=== PATIENT | male | born 1945 | race Caucasian/White ===

== ENCOUNTER 2025-01-28 10:41 | Outpatient (CLI) | payer OTHER, SELFPAY ==
--- OUTSIDE RECORDS SUMMARY | 2025-01-28 10:44 | XMS_ITS | Encounter Summary ---
Author Name [facility] [facility] [place] [facility] [facility] [place] Address [address] [place] [address] Care Team Providers Care Automatic Gluing Machine Operator Name Role Phone NICHOLAS LEVIN Primary Care Provider Unavailabl e Insurance Providers: All historical and current Section Date Range: From patient's date of to the date document was created. This section includes the names of all active insurance providers for the patient. Insurance Provider Type of Coverage Plan Name Start of Policy Coverage End of Policy Coverage Group Number Member ID Insurance Provider's Telephone Number Policy Rosenberg's Name Patient's Relationship to Policy Rosenberg [employer] POINT OF SERVICE STEVENS EXPRE SS LINES Oct 09, 2020 [id number] CARLO MARTINEZ PATIENT CIGNA [facility] POINT OF SERVICE [id number] Oct 09, 2011 [id number] CARLO MARTINEZ PATIENT CIGNA [facility] POINT OF SERVICE STEVENS EXPRE SS LINES Oct 09, 2020 [id number] CARLO MARTINEZ PATIENT CIGNA PHARMACY PRESCRIPT ION NONE Oct 09, 2011 [id number] TERRY MARTINEZ JR PATIENT CIGNA PHARMACY PRESCRIPT ION ([id number] 07/10 [id number]) Oct 09, 2011 NONE [id number] TERRY MARTINEZ JR PATIENT [employer] ([id number]) PRESCRIPT ION STEVENS EXPRE SS Oct 09, 2020 [id number] [phone] CARLO MARTINEZ PATIENT [employer] POINT OF SERVICE STEVENS EXPRE SS LINES Oct 09, 2011 [id number] CARLO MARTINEZ PATIENT MEDICARE (WNR) MEDICARE (M) PART A Jan 08, 2012 PART A [id number] [phone] [id number] TERRY MARTINEZ JR PATIENT [facility] Oct 09, 2011 [id number] CARLO MARTINEZ PATIENT Selected Encounter This section includes the information on record at [place] for the Encounter. Date/Time Encounter Type Encounter Description Reason Pro vider Source Jan 13, 2025 01:11 PM Outpatient Encounter COMMUNITY CARE CONSULT IHE Encounter Template Text not used by [place] Plan of Treatment: Future Appointments (+ 6 months) and Future Tests (+/- 45 days) The Plan of Treatment section includes future care activities for the patient from all [place] treatmentfacilities. This section includes future appointments and future orders which are active, pending or scheduled. Future Appointments This section includes appointments that were scheduled to occur 6 months from the date of the Encounter, up to a maximum of 20 appointments. The data comes from all [facility]. Appointment Date/Time Appointment Type Appointme nt Facility Name Jan 23, 2025 01:15 PM AM[facility]ORY - NONE [place] [facility] Jan 28, 2025 11:00 AM AM[facility] - NONE [place] [facility] Jan 28, 2025 02:00 PM AMBULATORY - [place]IC[place] [facility] Mar 28, 2025 10:40 AM AMBULATORY - SURGERY [place] [facility] Apr 02, 2025 09:00 AM [facility] Active, Pending, and Scheduled Orders This section includes a listing of several types of active, pending, and scheduled orders, including clinic medications orders, diagnostic test orders, procedure orders and consult orders; where the start date of the order is 45 days before the date of the Encounter or 45 days after the date of theEncounter. The data comes from all [place] treatment [facility]. Test Date/Time Test Type Test Details Facility Name Jan 09, 2025 12:00 AM Imaging - General Radiology Order ESOPHAGUS RAPID (MODIFIED BS) [facility] Jan 09, 2025 10:38 AM Consult Order SURGERY QUINN ND OUTPATIENT Cons Casting And Pasting Supervisor's Choice [facility] Jan 09, 2025 10:38 AM Consult Order OT OUTPATI ENT CDD Cons [employer] Pasting Supervisor's Choice [facility] Jan 09, 2025 10:38 AM Consult Order COMMUNITY [id number] BARIUM SWALLOW Cons Casting And Pasting Supervisor's Choice [facility] Lab Results: +/- 30 days of the encounter This section includes the Chemistry and Hematology Lab Results on record with [place] for the patient. Radiology Reports and Pathology Reports are provided separately, in subsequent sections. Lab Results This section contains the Chemistry/Hematology Results that were resulted 30 days before or 30 daysafter the date of the Encounter. Date/Time Source Result Type Result - Unit Interpretation Reference Range Specimen Type Comment Jan 09, 2025 10:15 AM [facility] N ANTI-CCP (SRL) SERUM Specimen Type: SERUM No comment entered. Ordering Provider: NICHOLAS LEVIN Report Released Date/Time: Jan 09, 2025 10:07 AM Reporting Lab: [address] [address] Performing Lab: [address] [address] ANTI-CCP (SRL) <0.5 0.5-2.9 Jan 09, 2025 10:15 AM [facility] ANTI-NUCLEAR Ab SERUM Specime n Type: SERUM No comment entered. Ordering Provider: NICHOLAS LEVIN Report Released Date/Time: Jan 09, 2025 10:07 AM Reporting Lab: [address] [address] Performing Lab: [address] [address] ANTI-NUCLEAR Ab <1:80 <1:80 Jan 09, 2025 10:15 AM [facility] RHEUMATOID FACTOR SERUM Speci men Type: SERUM No comment entered. Ordering Provider: NICHOLAS LEVIN Report Released Date/Time: Jan 09, 2025 10:07 AM Reporting Lab: [address] [address] Performing Lab: [address] [address] RHEUMATOID FACTOR <8 NEGATIVE [IU]/mL <8 NEGATIVE Jan 09, 2025 10:15 AM [facility] LIPID PROFILE PLASMA Specimen Type: PLASM A Comment: Estimated Glomerular Filtration Rate (eGFR) calculated using the 2020 Chronic Kidney Disease-Epidemiology (CKD-EPI) Collaboration creatinine equation; units of measure are mL/min/1.73 m2. Results are only valid for adults (>=18 years) whose serum creatinine is in a steady state. eGFR calculations are not valid for patients with acute kidney injury and for patients on dialysis. Creatinine-based estimates of kidney function may also be inaccurate in patients with reduced creatinine generation due to decreased muscle mass (e.g., malnutrition, severe hypoalbuminemia, sarcopenia, chronic neuromuscular disease, amputations, severe heart failure or liver disease) and in patients with increased creatinine generation due to increased muscle mass (e.g., muscle builders, anabolic steroids) or increased dietary intake. As drug clearance is proportional to total GFR and not GFR indexed to body surface area (BSA), in individuals with a BSA substantially different than 1.73 m2, drug dosing should be based on the reported eGFR value de-indexed from BSA by multiplying by the individual's BSA and dividing by 1.73. CKD is diagnosed based on abnormalities of kidney structure or function, present for >3 months, with implications for health and disease. CKD is classified and staged based on cause, eGFR and albuminuria (quantified as urine albumin to creatinine ratio). An eGFR >60 mL/min/1.73 m2 in the absence of increased urine albumin excretion or structural abnormalities does not represent CKD. eGFR CKD Interpretation (mL/min/1.73 m2) stage >=90 G1 Normal 60-89 G2 Mild decrease 45-59 G3A Mild to moderate decrease 30-44 G3B Moderate to severe decrease 15-29 G4 Severe decrease <15 G5 Kidney failure Ordering Provider: NICHOLAS LEVIN Report Released Date/Time: Jan 09, 2025 10:07 AM Reporting Lab: [place] [address] [address] Performing Lab: [address] [address] CHOLESTEROL 115 mg/dL 0-199 TRIGLYCERIDE 261 mg/dL H 0-149 HDL CHOLESTEROL 26 mg/dL L 40-69 DIRECT LDL CHOL. 44 mg/dL 0-100 Jan 09, 2025 10:15 AM [facility] GLYCOHEMOGLOBIN BLOOD Specimen Type: BLOOD Comment: [place] guidelines for A1c interpretation: Glycemic control targets are based on Shared Decision Making between clinicians and patients. Criteria used to establish an A1c target recommendation can be found at https://www.ri.gov/qualityandpatientsafety/ and include the use of result accuracy and precision(CV) of the A1c tests clinicians utilize at their own sites of practice. Values obtained from A1C measurements can vary. For typical A1C assays, a reported value of 7.0 could actually be between 6.72 and 7.28 if measured by a reference method. A reported value of 9.0 could actually be between 8.73 and 9.27. Ref: https://ngsp.org/CAPdata.asp. The in-house [employer] D-100 analyzer has a historical CV <= 2%. Contact the laboratory for further performance characteristics of this assay. Ordering Provider: NICHOLAS LEVIN Report Released Date/Time: Jan 09, 2025 10:07 AM Reporting Lab: [address] [address] Performing Lab: [address] [address] GLYCOHEMOGLOBIN 5.3 4.4-5.6 Jan 09, 2025 10:15 AM [facility] TSH PLASMA Specimen Type: PLASM A Comment: Estimated Glomerular Filtration Rate (eGFR) calculated using the 2020 Chronic Kidney Disease-Epidemiology (CKD-EPI) Collaboration creatinine equation; units of measure are mL/min/1.73 m2. Results are only valid for adults (>=18 years) whose serum creatinine is in a steady state. eGFR calculations are not valid for patients with acute kidney injury and for patients on dialysis. Creatinine-based estimates of kidney function may also be inaccurate in patients with reduced creatinine generation due to decreased muscle mass (e.g., malnutrition, severe hypoalbuminemia, sarcopenia, chronic neuromuscular disease, amputations, severe heart failure or liver disease) and in patients with increased creatinine generation due to increased muscle mass (e.g., muscle builders, anabolic steroids) or increased dietary intake. As drug clearance is proportional to total GFR and not GFR indexed to body surface area (BSA), in individuals with a BSA substantially different than 1.73 m2, drug dosing should be based on the reported eGFR value de-indexed from BSA by multiplying by the individual's BSA and dividing by 1.73. CKD is diagnosed based on abnormalities of kidney structure or function, present for >3 months, with implications for health and disease. CKD is classified and staged based on cause, eGFR and albuminuria (quantified as urine albumin to creatinine ratio). An eGFR >60 mL/min/1.73 m2 in the absence of increased urine albumin excretion or structural abnormalities does not represent CKD. eGFR CKD Interpretation (mL/min/1.73 m2) stage >=90 G1 Normal 60-89 G2 Mild decrease 45-59 G3A Mild to moderate decrease 30-44 G3B Moderate to severe decrease 15-29 G4 Severe decrease <15 G5 Kidney failure Ordering Provider: NICHOLAS LEVIN Report Released Date/Time: Jan 09, 2025 10:07 AM Reporting Lab: [address] [address] Performing Lab: [address] [address] TSH 1.6243 m[IU]/mL 0.3500-4.9400 Jan 09, 2025 10:[facility] (for acute inflammation) PLASMA Specimen T ype: PLASMA Comment: Estimated Glomerular Filtration Rate (eGFR) calculated using the 2020 Chronic Kidney Disease-Epidemiology (CKD-EPI) Collaboration creatinine equation; units of measure are mL/min/1.73 m2. Results are only valid for adults (>=18 years) whose serum creatinine is in a steady state. eGFR calculations are not valid for patients with acute kidney injury and for patients on dialysis. Creatinine-based estimates of kidney function may also be inaccurate in patients with reduced creatinine generation due to decreased muscle mass (e.g., malnutrition, severe hypoalbuminemia, sarcopenia, chronic neuromuscular disease, amputations, severe heart failure or liver disease) and in patients with increased creatinine generation due to increased muscle mass (e.g., muscle builders, anabolic steroids) or increased dietary intake. As drug clearance is proportional to total GFR and not GFR indexed to body surface area (BSA), in individuals with a BSA substantially different than 1.73 m2, drug dosing should be based on the reported eGFR value de-indexed from BSA by multiplying by the individual's BSA and dividing by 1.73. CKD is diagnosed based on abnormalities of kidney structure or function, present for >3 months, with implications for health and disease. CKD is classified and staged based on cause, eGFR and albuminuria (quantified as urine albumin to creatinine ratio). An eGFR >60 mL/min/1.73 m2 in the absence of increased urine albumin excretion or structural abnormalities does not represent CKD. eGFR CKD Interpretation (mL/min/1.73 m2) stage >=90 G1 Normal 60-89 G2 Mild decrease 45-59 G3A Mild to moderate decrease 30-44 G3B Moderate to severe decrease 15-29 G4 Severe decrease <15 G5 Kidney failure Ordering Provider: NICHOLAS LEVIN Report Released Date/Time: Jan 09, 2025 10:07 AM Reporting Lab: [place] [phone] Performing Lab: [place] [phone] CRP (for acute inflammation) 1.0 mg/L 0. 0-5.0 Jan 09, 2025 10:15 AM [facility] SED RATE (ISED) BLOOD Specime n Type: BLOOD No comment entered. Ordering Provider: NICHOLAS LEVIN Report Released Date/Time: Jan 09, 2025 10:07 AM Reporting Lab: [address] [address] Performing Lab: [place] [phone] SED RATE (ISED) 3 mm/h 0-20 Jan 09, 2025 10:15 AM [facility] CBC/PLT BLOOD Specimen Type: BLOOD No comment entered. Ordering Provider: NICHOLAS LEVIN Report Released Date/Time: Jan 09, 2025 10:07 AM Reporting Lab: [address] [address] Performing Lab: [address] [address] WBC 7.0 10*3/uL 5.0-10.0 RBC 4.50 10*6/uL L 4.6-6.2 HGB 14.0 g/dL 14.0-18.0 HCT 41.3 L 42.0-52.0 MCV 91.8 fL 80.0-94.0 MCH 31.1 pg H 27.0-31.0 MCHC 33.9 g/dL 32.0-36.0 PLT 240 10*3/uL 150-450 MPV 9.1 fL 9.0-13.1 RDW 12.3 11.0-16.0 NRBC 0.0 0.0-0.0 Jan 09, 2025 10:15 AM [facility] PANEL 5 PLASMA Specimen Type: PLASM A Comment: Estimated Glomerular Filtration Rate (eGFR) calculated using the 2020 Chronic Kidney Disease-Epidemiology (CKD-EPI) Collaboration creatinine equation; units of measure are mL/min/1.73 m2. Results are only valid for adults (>=18 years) whose serum creatinine is in a steady state. eGFR calculations are not valid for patients with acute kidney injury and for patients on dialysis. Creatinine-based estimates of kidney function may also be inaccurate in patients with reduced creatinine generation due to decreased muscle mass (e.g., malnutrition, severe hypoalbuminemia, sarcopenia, chronic neuromuscular disease, amputations, severe heart failure or liver disease) and in patients with increased creatinine generation due to increased muscle mass (e.g., muscle builders, anabolic steroids) or increased dietary intake. As drug clearance is proportional to total GFR and not GFR indexed to body surface area (BSA), in individuals with a BSA substantially different than 1.73 m2, drug dosing should be based on the reported eGFR value de-indexed from BSA by multiplying by the individual's BSA and dividing by 1.73. CKD is diagnosed based on abnormalities of kidney structure or function, present for >3 months, with implications for health and disease. CKD is classified and staged based on cause, eGFR and albuminuria (quantified as urine albumin to creatinine ratio). An eGFR >60 mL/min/1.73 m2 in the absence of increased urine albumin excretion or structural abnormalities does not represent CKD. eGFR CKD Interpretation (mL/min/1.73 m2) stage >=90 G1 Normal 60-89 G2 Mild decrease 45-59 G3A Mild to moderate decrease 30-44 G3B Moderate to severe decrease 15-29 G4 Severe decrease <15 G5 Kidney failure Ordering Provider: NICHOLAS LEVIN Report Released Date/Time: Jan 09, 2025 10:07 AM Reporting Lab: [address] [address] Performing Lab: [address] [address] CREATININE 0.94 mg/dL 0.72-1.25 UREA NITROGEN 20 mg/dL 9-25 GLUCOSE 79 mg/dL 74-100 SODIUM 139 mmol/L 136-145 POTASSIUM 4.4 mmol/L 3.5-5.1 CHLORIDE 107 mmol/L 98-107 CO2 25 mmol/L 22-29 CALCIUM 9.2 mg/dL 8.4-10.2 TOTAL PROTEIN 7.5 g/dL 6.4-8.3 ALBUMIN 4.2 g/dL 3.5-5.2 TOTAL BILIRUBIN 0.7 mg/dL 0.2-1.2 AST 21 U/L 5-34 ALT 21 U/L 0-55 ANION GAP 7 meq/L 3-19 ALK PHOS 79 U/L 40-150 eGFR (CKD-EPI) 83 Social History: Smoking Status (Most current) and Tobacco Use (All prior to encounter date) This section includes the most current, and the historical, smoking and tobacco- related health factors from the [place] facility where the Encounter took place. Current Smoking Status This section includes the most current smoking, or tobacco-related health factor, from the [place] facility where the Encounter took place. Date/Time Current Smoking Status Comment Colby corado Jan 09, 2025 10:00 AM VA-TOBACCO USE FOR NAVI CIGARETTES [facility] Tobacco Use History This section includes a history of the smoking, or tobacco-related health factors, that were collected on or before the date of the Encounter. The data comes from the [place] facility where the Encounter took place. Date/Time Smoking Status/Tobacco Use Comment Mouna roman Jan 09, 2025 10:00 AM VA-TOBACCO USE FOR NAVI CIGARETTES [facility] February 07, 2024 02:30 PM VA-TOBACCO NEVER USED [facility] Jun 16, 2022 01:00 PM VA-TOBACCO FORMER USER [facility] Jun 16, 2022 01:00 PM VA-TOBACCO QUIT 15 YRS OR MORE [facility] Jun 09, 2021 09:30 AM VA-TOBACCO FORMER USER [facility] Jun 09, 2021 09:30 AM VA-TOBACCO QUIT 15 YRS OR MORE [facility] Jul 06, 2020 08:30 AM VA-TOBACCO FORMER USER [facility] Jul 06, 2020 08:30 AM VA-TOBACCO QUIT 15 YRS OR MORE [facility] Jun 11, 2019 01:24 PM VA-TOBACCO NEVER USED [facility] Aug 01, 2018 07:43 AM VA-TOBACCO FORMER USER [facility] Aug 01, 2018 07:43 AM VA-TOBACCO QUIT 15 YRS OR MORE [facility] Jun 27, 2017 08:56 AM V9 LIFETIME NON-USER OF TOBACCO [facility] Aug 08, 2016 10:07 AM V9 LIFETIME NON-USER OF TOBACCO [facility] Sep 07, 2015 08:51 AM V9 QUIT TOBACCO >7 YEARS AGO [facility] May 31, 2013 09:51 AM V9 QUIT TOBACCO >7 YEARS AGO [facility] May 31, 2013 09:51 AM V9 TOBACCO OFFERED [facility] Radiology Reports: +/- 30 days of the encounter Radiology Reports For cases when an order for radiology services may have been completed prior to the date of the Encounter, the report list includes the Radiology Reports that were completed up to 30 days before dateof the Encounter. For cases when an order for radiology services may have been completed after the date of the Encounter, the report list also includes the Radiology Reports that were completed up to30 days after date of the Encounter. The data comes from all [place] treatment facilities. Date/Time Radiology Report Provider Source Jan 09, 2025 10:27 AM HAND-RIGHT 3 OR MORE VIEWS: TERRY MARTINEZ JR [id number] -1945 M Exm Date: JAN 09, 2025@10:27 Req Phys: NICHOLAS LEVIN Loc: [facility] 1-2 (Req'g Loc) Img Loc: [facility] Service: [place] [address] (Case [id number] COMPLETE)HAND-RIGHT 3 OR MORE VIEWS (RAD Detailed) CPT:66024 Reason for Study: BILATERAL HAND PAIN Clinical History: UPDATING PLAIN FILMS FOR HAND CONSULT Report Status: Verified Date Reported: JAN 10, 2025 Date Verified: JAN 10, 2025 Hourly Shift E-Sig: Report: HAND-RIGHT 3 OR MORE VIEWS, HAND-LEFT 3 OR MORE VIEWS, 01/09/2025 10:39 AM EDT INDICATION: BILATERAL HAND PAIN COMPARISON: February 07, 2024 Impression: No acute fracture or malalignment. 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 Primary Diagnostic Code: NO ALERT REQUIRED Primary Interpreting Staff: MARC BRAND, Staff Physician Verified by calculating machine mechanic for MARC BRAND /MARC GENAO [facility] Jan 09, 2025 10:27 AM CHEST TWO(2) VIEW PA&LAT: TERRY MARTINEZ JR [id number] -1945 M Exm Date: JAN 09, 2025@10:27 Req Phys: NICHOLAS LEVIN Pat Loc: [facility] 1-2 (Req'g Loc) Img Loc: [facility] Service: Unknown [place] [id number] (Case [id number] COMPLETE)CHEST TWO(2) VIEW PA&LAT (RAD Detailed) CPT:96394 Reason for Study: CHRONIC COUGH Clinical History: Report Status: Verified Date Reported: JAN 09, 2025 Date Verified: JAN 09, 2025 Hourly Shift E-Sig: Report: Comparison: February 02, 2022 Findings: Two views of the chest were obtained. Lungs are free of infiltrates. Heart size is normal. No pneumothorax or pleural effusions are seen. 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 Impression: 1. No acute disease Primary Diagnostic Code: NO ALERT REQUIRED Primary Interpreting Staff: SINTIA IBARRA, Staff Physician Verified by calculating machine mechanic for SINTIA IBARRA /SINTIA RUIZ [facility] Jan 09, 2025 10:27 AM HAND-LEFT 3 OR MORE VIEWS: MARTINEZTERRYSTEVENSON JR [id number] -1945 M Exm Date: JAN 09, 2025@10:27 Req Phys: NICHOLAS LEVIN Loc: [facility]OL[facility] 1-2 (Req'g Loc) g Loc: [facility] Service: [place] [address] (Case [id number] COMPLETE)HAND-LEFT 3 OR MORE VIEWS (RAD Detailed) CPT:79715 Reason for Study: BILATERAL HAND PAIN Clinical History: UPDATING PLAIN FILMS FOR HAND CONSULT Report Status: Verified Date Reported: JAN 10, 2025 Date Verified: JAN 10, 2025 Hourly Shift E-Sig: Report: HAND-RIGHT 3 OR MORE VIEWS, HAND-LEFT 3 OR MORE VIEWS, 01/09/2025 10:39 AM EDT INDICATION: BILATERAL HAND PAIN COMPARISON: February 07, 2024 Impression: No acute fracture or malalignment. 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 Primary Diagnostic Code: NO ALERT REQUIRED Primary Interpreting Staff: MARC BRAND, Staff Physician Verified by calculating machine mechanic for MARC BRAND /MARC GENAO [facility] Dec 19, 2024 08:34 AM SHOULDER-LEFT 2 OR MORE VIEWS: TERRY MARTINEZ [id number] -1945 M Exm Date: DEC 19, 2024@08:34 Req Phys: WILBERT WOOD Loc: [facility] ORTHO/SHOULDER/FOLLOWUP CD Img Loc: [facility] Service: Unknown [place] [id number] (Case [id number] COMPLETE)SHOULDER-LEFT 2 OR MORE VIEWS (RAD Detailed) CPT:27933 Reason for Study: s/p surgery Clinical History: Report Status: Verified Date Reported: DEC 20, 2024 Date Verified: DEC 20, 2024 Hourly Shift E-Sig: Report: EXAM: LEFT SHOULDER RADIOGRAPHS HISTORY: Status post surgery COMPARISON: 02/21/2024 FINDINGS: Redemonstration of reverse left glenohumeral arthroplasty, 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 No evidence for acute fracture, dislocation or hardware loosening. No lytic or blastic lesion. Moderate acromioclavicular degenerative changes. Soft tissues are unremarkable. Impression: 1. Stable postoperative changes of the left shoulder. READING PHYSICIAN: Prieto Truong M.D. -[phone] 12/20/2024 23:30 EDT [facility] National Teleradiology Program [phone] (For Medical Practitioner Use Only) Attention Patients / Veterans: If you have questions or concerns about these test results, please contact your ordering provider or primary care team. Primary Diagnostic Code: NO ALERT REQUIRED Primary Interpreting Staff: OUTSIDE SERVICE RADIOLOGY, Staff Physician / RADIOLOGY,OUTSIDE SERVICE [facility] Encounter Notes: All associated encounter notes This section contains the clinical notes associated to the Encounter. Date/Time Encounter Note(s) Provider Source Jan 13, 2025 01:11 PM NONVA NOTE: LOCAL TITLE: COMMUNITY CARE-CARE COORDINATION PLAN NOTE STANDARD TITLE: NONVA NOTE DATE OF NOTE: JAN 13, 2025@13:11 ENTRY DATE: JAN 13, 2025@13:11:50 AUTHOR: SONIA PRETTY COSIGNER: URGENCY: STATUS: COMPLETED [place] [facility] [place] Complaint: Dysphagia, unspecified(ICD-10-CM R13.10) Patient Admitted? No Level of Care Coordination Moderate Care Coordination was determined from: Chart Review Facility Community Care Office Contact Care Coordination Point of Contact: Maria De Jesus Phone Number: [phone] Services: Basic Care Coordination Services Monitoring and coordination of Rehab/PT Services Direct communication to referring provider Care management, if appropriate Plan: Community Care consult clinically reviewed and sent forward to POD MSA for scheduling and assignment of authorization. /vishnu/ Sonia Pretty RN [facility] Powerhouse Mechanic Supervisor Signed: 01/13/2025 13:13 SONIA PRETTY [facility]
--- OUTSIDE RECORDS SUMMARY | 2025-01-28 10:44 | XMS_ITS | Encounter Summary ---
Author Name [facility] [place] [facility] [place] [facility] [place] Address [address] [place] [id number] Care Team Providers Care Department Of Natural Resources Officer Name Role Phone NICHOLAS LEVIN Primary Care [...] STEVENS EXPRE SS LINES Oct 09, 2020 [id number] CARLO MARTINEZ PATIENT [facility] POINT OF SERVICE [id number] Oct 09, 2011 [id number] [phone] CARLO MARTINEZ PATIENT [facility] [facility] POINT OF SERVICE STEVENS EXPRE SS LINES Oct 09, 2020 [id number] CARLO MARTINEZ PATIENT [facility] PRESCRIPT ION NONE Oct 09, 2011 [id number] [phone] TERRY MARTINEZ JR PATIENT [facility] PRESCRIPT ION ([id number] 07/10 [id number] [phone]) Oct 09, 2011 NONE [id number] TERRY MARTINEZ JR PATIENT [facility] ([id number]) PRESCRIPT ION STEVENS EXPRE SS Oct 09, 2020 [id number] CARLO MARTINEZ PATIENT [facility] POINT OF SERVICE STEVENS EXPRE SS LINES Oct 09, 2011 [id number] CARLO MARTINEZ PATIENT MEDICARE (WNR) MEDICARE (M) PART A Jan 08, 2012 PART A [id number] TERRY MARTINEZ JR [facility] Oct 09, 2011 [id number] CARLO MARTINEZ PATIENT Selected Encounter This section includes the information on record at [place] for the Encounter. Date/Time Encounter Type Encounter Description Reason Provider Source Dec 06, 2024 09:30 AM OFFICE O/P EST MOD 30 MIN DERMATOLOGY ICD-10-CM L57.0 Actinic keratosis [place] EN Dorie IHE Encounter Template Text not used by [place] Assessments - Encounter Diagnoses This section includes the primary and secondary diagnoses documented for the Encounter. Date/Time Primary/Secondary Diagnosis Diagnosis Name Provider Source Dec 06, 2024 10:11 AM PRIMARY Actinic keratosis [place] EN B [place] Dec 06, 2024 10:11 AM SECONDARY Hemangioma of skin and subcutaneous tissue [place] [facility] [place] Dec 06, 2024 10:11 AM SECONDARY Nevus, non-neoplastic [place] F[place] EN B [place] Dec 06, 2024 10:11 AM SECONDARY Other seborrheic keratosis [place] [facility] [place] Dec 06, 2024 10:11 AM SECONDARY Tinea corporis [place] EN B [place] Dec 06, 2024 10:11 AM SECONDARY Xerosis cutis [place] [facility] [place] Plan of Treatment: Future Appointments (+ 6 months) and Future Tests (+/- 45 days) The Plan of Treatment section includes future care activities for the patient from all [place] treatmentfacilities. This section includes future appointments and future orders which are active, pending or scheduled. Future Appointments This section includes appointments that were scheduled to occur 6 months from the date of the Encounter, up to a maximum of 20 appointments. The data comes from all [facility]. Appointment Date/Time Appointment Type Appointme nt Facility Name Dec 19, 2024 09:00 AM AMBULATORY - SURGERY [place] Jan 09, 2025 10:00 AM [facility]ORY - [place]ONE [place] [facility] Jan 09, 2025 11:15 AM AM[place]ATORY - NONE [place] Jan 09, 2025 11:30 AM AMBULATORY - REHAB MEDICIN E [facility] Jan 23, 2025 01:15 PM AM[place]ULATORY - NONE [place] Jan 28, 2025 11:00 AM AM[place]ATORY - NONE [place] [facility] Jan 28, 2025 02:00 PM AMBULATORY - REHAB MEDICIN E [facility] Mar 28, 2025 10:40 AM AMBULATORY - SURGERY [place] [facility] Apr 02, 2025 09:00 AM AM[facility]ULATORY - [place]GERY [place] Active, Pending, and Scheduled Orders This section includes a listing of several types of active, pending, and scheduled orders, including clinic medications orders, diagnostic test orders, procedure orders and consult orders; where the start date of the order is 45 days before the date of the Encounter or 45 days after the date of theEncounter. The data comes from all [facility]. Test Date/Time Test Type Test Details Facility Name Jan 09, 2025 12:00 AM Imaging - General Radiology Order ESOPHAGUS RAPID (MODIFIED BS) [facility] Jan 09, 2025 10:38 AM Consult Order SURGERY QUINN ND OUTPATIENT Cons Director Of Analytics's Choice [facility] Jan 09, 2025 10:38 AM Consult Order OT OUTPATI ENT CDD Cons Director Of Analytics's Choice [facility] Jan 09, 2025 10:38 AM Consult Order COMMUNITY [id number] BARIUM SWALLOW Cons Director Of Analytics's Choice [facility] Radiology Reports: +/- 30 days of the [...] the Encounter. The data comes from all [place] treatment facilities. Date/Time Radiology Report Provider Source Dec 19, 2024 08:34 AM SHOULDER-LEFT 2 OR MORE VIEWS: TERRY MARTINEZ JR [id number] -1945 M Exm Date: DEC 19, 2024@08:34 Req Phys: WILBERT WOOD Pat Loc: [facility]THO/SHOULDER/FOLLOWUP CD Img Loc: CDD RADIOLOGY Service: [place] [address] (Case [id number] COMPLETE)SHOULDER-LEFT 2 OR MORE VIEWS (RAD Detailed) CPT:62267 Reason for Study: s/p surgery Clinical History: Report Status: Verified Date Reported: DEC 20, 2024 Date Verified: DEC 20, 2024 Tank Storage Supervisor E-Sig: Report: EXAM: LEFT SHOULDER RADIOGRAPHS HISTORY: Status post surgery COMPARISON: 02/21/2024 FINDINGS: Redemonstration of reverse left glenohumeral arthroplasty, 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 No evidence for acute fracture, dislocation or hardware loosening. No lytic or blastic lesion. Moderate acromioclavicular degenerative changes. Soft tissues are unremarkable. Impression: 1. Stable postoperative changes of the left shoulder. READING PHYSICIAN: Prieto Truong M.D. -[id number] 12/20/2024 23:30 EDT [facility] National Teleradiology Program [phone] (For Medical Practitioner Use Only) Attention Patients / Veterans: If you have questions or concerns about these test results, please contact your ordering provider or primary care team. Primary Diagnostic Code: NO ALERT REQUIRED Primary Interpreting Staff: OUTSIDE SERVICE RADIOLOGY, Staff Physician / RADIOLOGY,OUTSIDE SERVICE [facility] Encounter Notes: All associated encounter notes This section contains the clinical notes associated to the Encounter. Date/Time Encounter Note(s) Provider Source Dec 06, 2024 10:01 AM DERMATOLOGY PHYSIC ESTEBAN NOTE: LOCAL TITLE: DERMATOLOGY CLINIC PHYSICIAN/PA/GAMBLING BROKER NOTE STANDARD TITLE: DERMATOLOGY PHYSICIAN NOTE DATE OF NOTE: DEC 06, 2024@10:01 ENTRY DATE: DEC 06, 2024@10:01:51 AUTHOR: CLIBURN,ZACK B EXP COSIGNER: URGENCY: STATUS: COMPLETED DERMATOLOGY CLINIC PHYSICIAN/PA/GAMBLING BROKER NOTE Has ADDENDA Patient is a 79 yo WHITE MALE here for: waist up exam. Patient has noticed an irritated lesion on the top of the scalp x months and itchy spot on the left foot x one year. He denies using any topical treatments on foot. Have you used tobacco products (smoked or chewed) in the past 12 months? - No Are you having any pain or recurrent pain in the last several weeks/months? No Location: Duration: Characteristics: Active Outpatient Medications (including Supplies): Active Outpatient Medications Status === 1) ATORVASTATIN CALCIUM 40MG TAB TAKE ONE-HALF TABLET BY MOUTH ACTIVE DAILY FOR CHOLESTEROL -DO NOT DRINK GRAPEFRUIT JUICE WHILE ON THIS DRUG 2) DICLOFENAC NA 1% TOP GEL APPLY 2 GRAM STRIP TO AFFECTED AREA ACTIVE EVERY 6 HOURS NEEDED Indication: FOR HAND PAIN 3) LISINOPRIL 10MG TAB TAKE ONE-HALF TABLET BY MOUTH DAILY FOR ACTIVE BLOOD PRESSURE/HEART 4) LORATADINE 10MG TAB TAKE ONE TABLET BY MOUTH DAILY MAY ACTIVE CAUSE DROWSINESS Indication: FOR ALLERGIES Pending Outpatient Medications Status === 1) KETOCONAZOLE 2% CREAM APPLY SMALL AMOUNT TO AFFECTED AREA PENDING TWICE A DAY Indication: FOR FUNGAL INFECTION 2) THERA-DERM MOISTURIZING LOTION APPLY SMALL AMOUNT TO PENDING AFFECTED AREA NEEDED Indication: FOR DRY SKIN Active Non-VA Medications Status === 1) Non-VA ASPIRIN 81MG EC TAB 81MG MOUTH DAILY ACTIVE 2) Non-VA FISH OIL CAP,ORAL 1200MG MOUTH EVERY DAY ACTIVE 8 Total Medications ALLERGIES: SULFA DRUGS History of SCC/BCC PREVIOUS REPORTS: 07/2020 Skin, right neck, shave biopsy: -Basal cell carcinoma with superficial erosion, see comment. S/P EXCISION Jun 2021 Skin, left nasal sidewall, shave biopsy: -Basal cell carcinoma, transected at base. s/p MOHS 04/2024 Skin, left deltoid, shave biopsy: -Basal cell carcinoma, superficial pattern . s/p Efudex/Dovonex x 15 days FAMILY HISTORY: No skin cancer REVIEW OF SYSTEMS: Feels well, no systemic complaints. , Constitutional: Appears well-developed, well-nourished, in no acute distress. PHYSICAL EXAM - Waist-up Skin Exam: head, neck, chest, back, abdomen, right and left arm, hands - Focal Exam: left foot Common Physical Exam Findings: - Erythematous scaly macules on - Scalp - Few scattered zhang/brown reticulated macules on sun-exposed areas - Stuck-on, greasy flesh colored or brown keratotic papules/macules with or without pseudo-horn cysts on - Trunk - Discrete puckett red papules on - Trunk - Diffuse scaling with linear fissures on the upper and lower extremities - Erythematous plaque(s) with white scales/flakes and active boarders on - dorsum left foot ASSESSMENT & PLAN: AK's: Explained to the patient that these are precancerous lesions and should be treated. Discussed the discomfort caused by LN2. Disscussed risks of cryotherapy such as scabbing, crusting, pain, blistering, pigmentary change, and possibility of scarring. - Wound care was discussed, and wound care sheet given. Patient consented to treatment and had no further questions or concerns. - LN2 x 1 to - Scalp Nevi and lentigines: Monitor moles for change/skin self-examination was reviewed including the use of a hand-held mirror to check the back -Continue sun protection. -Preventive therapy discussed -Avoid sun exposure between 10am and 4pm -Sunscreen: SPF #30 or more; re-apply every 2 hours, daily -Protective clothing/ 4 inch wide-brim hat -No tanning Seborrheic keratoses: - Explained to patient and reassured that these lesions are benign. - Treatment is not necessary. Puckett Hemangioma: Reassurance was provided. Tinea corposis: - Ketoconazole cream Xerosis: - Recommended TheraDerm lotion twice daily, once immediately after the shower or bath. Dry skin care discussed. - Apply moisturizers whenever feels the need to scratch. To pat instead of rubbing, cut nails short and use the pulp of fingers. - reduce temperature of shower and usage of soaps History of skin cancer - Will observe: - h/o BCC/SCC: no evidence of recurrence Return to clinic order placed. 6 mo I spent 33 minutes, reviewing history, performing an exam and evaluation, entering clinical information EHR, interpreting result, counseling patient/family/caregiver, reviewing x-rays/mri/labs, ordering meds/test/procedures, referring and communicating with consulting health furnace caretaker, and care coordination. /vishnu/ ZACK Reese Physician [employer] And Skin Fleshing Machine Operator Signed: 12/06/2024 10:11 12/09/2024 ADDENDUM STATUS: COMPLETED All medications, post treatment care, and treatment plan was discussed with prior to exiting clinic by nurse/provider. Chart check review completed. RTC per order. /vishnu/ JOSE ALLEN RN, BSN, [facility] Director [facility] [employer] [facility] Signed: 12/09/2024 09:47 [facility] Dec 06, 2024 09:43 AM SUICIDE PREVENTION RISK ASSESSMENT SCREENING NOTE: LOCAL TITLE: [place] SUICIDE NOTE STANDARD TITLE: SUICIDE PREVENTION RISK ASSESSMENT SCREENING NOT DATE OF NOTE: DEC 06, 2024@09:43 ENTRY DATE: DEC 06, 2024@09:43:42 AUTHOR: ALMAZ DORAN COSIGNER: URGENCY: STATUS: COMPLETED C-SSRS Screening Gardner-Suicide Severity Rating Scale (C-SSRS Screener) 1. Over the past month, have you wished you were or wished you could go to sleep and not wake up? Yes 2. Over the past month, have you had any actual thoughts of killing yourself? No 3. Over the past month, have you been thinking about how you might do this? Response not required due to responses to other questions. 4. Over the past month, have you had these thoughts and had some intention of acting on them? Response not required due to responses to other questions. 5. Over the past month, have you started to work out or worked out the details of how to kill yourself? Response not required due to responses to other questions. 6. If yes, at any time in the past month did you intend to carry out this plan? Response not required due to responses to other questions. 7. In your lifetime, have you ever done anything, started to do anything, or prepared to do anything to end your life (for example, collected pills, obtained a gun, gave away valuables, went to the roof but didn't jump)? No 8. If YES, was this within the past 3 months? Response not required due to responses to other questions. /vishnu/ Silvana Doran Heater Planer Operator Signed: 12/06/2024 09:44 ALMAZ DORAN-[facility]
--- OUTSIDE RECORDS SUMMARY | 2025-01-28 10:44 | XMS_ITS | Encounter Summary ---
Author Name [facility] [place] [facility] [place] Address [address] [place] [address] Care Team Providers Care Drone Operator Name Role Phone NICHOLAS LEVIN Primary [...] STEVENS EXPRE SS LINES Oct 09, 2020 [id number] [phone] CARLO MARTINEZ PATIENT [employer]NA [facility] POINT OF SERVICE [id number] Oct 09, 2011 [id number] [phone] CARLO MARTINEZ PATIENT CIGNA [facility] POINT OF SERVICE STEVENS EXPRE SS LINES Oct 09, 2020 [id number] [phone] CARLO MARTINEZ PATIENT [employer]IG[employer] [facility] PRESCRIPT ION ([id number] 07/10 [id number] [phone]) Oct 09, 2011 NONE [id number] [phone] TERRY MARTINEZ JR PATIENT [employer]IGNA PHARMACY PRESCRIPT ION NONE Oct 09, 2011 [id number] TERRY MARTINEZ JR PATIENT [employer] ([id number]) PRESCRIPT ION STEVENS EXPRE SS Oct 09, 2020 [id number] CARLO MARTINEZ PATIENT [facility] POINT OF SERVICE STEVENS EXPRE SS LINES Oct 09, 2011 [id number] CARLO MARTINEZ PATIENT MEDICARE (WNR) MEDICARE (M) PART A Jan 08, 2012 PART A [id number] [phone] TERRY MARTINEZ JR PATIENT [facility] Oct 09, 2011 [id number] CARLO MARTINEZ PATIENT Selected Encounter This section includes the information on record at [place] for the Encounter. Date/Time Encounter Type Encounter Description Reason Provider Source Jan 09, 2025 11:30 AM ORTHC/PROSTC MGMT SBSQ ENC PROSTHETICS/ORTHOT ICS ICD-10-CM E11.40 Type 2 diabetes mellitus with diabetic neuropathy, ELI Nielsen [facility] Encounter Template Text not used by [place] Assessments - Encounter Diagnoses This section includes the primary and secondary diagnoses documented for the Encounter. Date/Time Primary/Secondary Diagnosis Diagnosis Name Provider Source Jan 09, 2025 11:18 AM PRIMARY Type 2 diabetes mellitus with diabetic neuropathy, ELI Nielsen [facility] Plan of Treatment: Future Appointments (+ 6 months) and Future Tests (+/- 45 days) The Plan of Treatment section includes future care activities for the patient from all [place] treatmentfacilities. This section includes future appointments and future orders which are active, pending or scheduled. Future Appointments This section includes appointments that were scheduled to occur 6 months from the date of the Encounter, up to a maximum of 20 appointments. The data comes from all [place] treatment facilities. Appointment Date/Time Appointment Type Appointme nt Facility Name Jan 23, 2025 01:15 PM AMBULATORY - NONE [place] [facility] Jan 28, 2025 11:00 AM AM[place]ULATORY - NONE [place] [facility] Jan 28, 2025 02:00 PM [facility] Mar 28, 2025 10:40 AM AMBULATORY - SURGERY [place] [facility] Apr 02, 2025 09:00 AM AMBULATORY - SURGERY [place] Active, Pending, and Scheduled Orders This section includes a listing of several types of active, pending, and scheduled orders, including clinic medications orders, diagnostic test orders, procedure orders and consult orders; where the start date of the order is 45 days before the date of the Encounter or 45 days after the date of theEncounter. The data comes from all [place] treatment facilities. Test Date/Time Test Type Test Details Facility Name Jan 09, 2025 12:00 AM Imaging - General Radiology Order ESOPHAGUS RAPID (MODIFIED BS) [facility] Jan 09, 2025 10:38 AM Consult Order SURGERY QUINN ND OUTPATIENT Cons Customs Officer's Choice [facility] Jan 09, 2025 10:38 AM Consult Order OT OUTPATI ENT CDD Cons Customs Officer's Choice [facility] Jan 09, 2025 10:38 AM Consult Order COMMUNITY [id number] BARIUM SWALLOW Cons Customs Officer's Choice [facility] Lab Results: +/- 30 days of the encounter This section includes the Chemistry and Hematology Lab Results on record with [facility] for the patient. Radiology Reports and Pathology Reports are provided separately, in subsequent sections. Lab Results This section contains the Chemistry/Hematology Results that were resulted 30 days before or 30 daysafter the date of the Encounter. Date/Time Source Result Type Result - Unit Interpretation Reference Range Specimen Type Comment Jan 09, 2025 10:15 AM [facility] N ANTI-CCP (SRL) SERUM Specimen Type: SERUM No comment entered. Ordering Provider: NICHOLAS LEVIN Report Released Date/Time: Jan 09, 2025 10:07 AM Reporting Lab: [address] [address] Performing Lab: [address] [address] ANTI-CCP (SRL) <0.5 0.5-2.9 Jan 09, 2025 10:15 AM [facility] ANTI-NUCLEAR Ab SERUM Specime n Type: SERUM No comment entered. Ordering Provider: NICHOLAS LEVIN Report Released Date/Time: Jan 09, 2025 10:07 AM Reporting Lab: [address] [address] Performing Lab: [address] [address] ANTI-NUCLEAR Ab <1:80 <1:80 Jan 09, 2025 10:15 AM [facility] RHEUMATOID FACTOR SERUM Speci men Type: SERUM No comment entered. Ordering Provider: NICHOLAS LEVIN Report Released Date/Time: Jan 09, 2025 10:07 AM Reporting Lab: [address] [address] Performing Lab: [address] [address] RHEUMATOID FACTOR <8 NEGATIVE [IU]/mL <8 NEGATIVE Jan 09, 2025 10:15 AM [facility] LIPID PROFILE PLASMA Specimen Type: PLASM A [...] 09, 2025 10:07 AM Reporting Lab: [address] [address] Performing Lab: [address] [address] CHOLESTEROL 115 mg/dL 0-199 TRIGLYCERIDE 261 mg/dL H 0-149 HDL CHOLESTEROL 26 mg/dL L 40-69 DIRECT LDL CHOL. 44 mg/dL 0-100 Jan 09, 2025 10:15 AM [facility] GLYCOHEMOGLOBIN BLOOD Specimen Type: BLOOD Comment: [place] guidelines for A1c interpretation: Glycemic control targets are based on Shared Decision Making between clinicians and patients. Criteria used to establish an A1c target recommendation can be found at https://www.me.gov/qualityandpatientsafety/ and include the use of result accuracy [...] 8.73 and 9.27. Ref: https://ngsp.org/CAPdata.asp. The in-house [employer]onge-WANdisco D-100 analyzer has a historical CV <= 2%. Contact the laboratory for further performance characteristics of this assay. Ordering Provider: NICHOLAS LEVIN Report Released Date/Time: Jan 09, 2025 10:07 AM Reporting Lab: [address] [address] Performing Lab: [address] [address] GLYCOHEMOGLOBIN 5.3 4.4-5.6 Jan 09, 2025 10:15 AM [facility] TSH PLASMA Specimen Type: PLASM A Comment: [...] 09, 2025 10:07 AM Reporting Lab: [address] [address] Performing Lab: [address] [address] TSH 1.6243 m[IU]/mL 0.3500-4.9400 Jan 09, 2025 10:15 AM [facility] CRP (for acute inflammation) PLASMA Specimen T [...] 09, 2025 10:07 AM Reporting Lab: [address] [address] Performing Lab: [address] [address] CRP (for acute inflammation) 1.0 mg/L 0. 0-5.0 Jan 09, 2025 10:15 AM [facility] SED RATE (ISED) BLOOD Specime n Type: BLOOD No comment entered. Ordering Provider: NICHOLAS LEVIN Report Released Date/Time: Jan 09, 2025 10:07 AM Reporting Lab: [place] [phone] Performing Lab: [place] [phone] SED RATE (ISED) 3 mm/h 0-20 Jan 09, 2025 10:15 AM [facility] CBC/PLT BLOOD Specimen Type: BLOOD No comment entered. Ordering Provider: NICHOLAS LEVIN Report Released Date/Time: Jan 09, 2025 10:07 AM Reporting Lab: [place] [phone] Performing Lab: [place] [phone] WBC 7.0 10*3/uL 5.0-10.0 RBC 4.50 10*6/uL L 4.6-6.2 HGB 14.0 g/dL 14.0-18.0 HCT 41.3 L 42.0-52.0 MCV 91.8 fL 80.0-94.0 MCH 31.1 pg H 27.0-31.0 MCHC 33.9 g/dL 32.0-36.0 PLT 240 10*3/uL 150-450 MPV 9.1 fL 9.0-13.1 RDW 12.3 11.0-16.0 NRBC 0.0 0.0-0.0 Jan 09, 2025 10:15 AM [facility] PANEL 5 PLASMA Specimen Type: PLASM A [...] 09, 2025 10:07 AM Reporting Lab: [address] [address] Performing Lab: [address] [address] CREATININE 0.94 mg/dL 0.72-1.25 UREA NITROGEN 20 [...] PHOS 79 U/L 40-150 eGFR (CKD-EPI) 83 Vital Signs: All taken on the encounter date This section contains inpatient and outpatient Vital Signs collected on the date of the Encounter. Date/Time Temperature Pulse Blood Pressure Respiratory Rate SP02 Pain Height Weight Body Mass Index Source Jan 09, 2025 09:34 AM 97.7 71 133/73 16 97 0 70 [address] [place] [facility] Social History: Smoking Status (Most current) and Tobacco Use (All prior to encounter date) This section includes the most current, and the historical, smoking and tobacco- related health factors from the [place] facility where the Encounter took place. Current Smoking Status This section includes the most current smoking, or tobacco-related health factor, from the [place] facility where the Encounter took place. Date/Time Current Smoking Status Comment Colby corado Jan 09, 2025 10:00 AM VA-TOBACCO USE FOR NAVI CIGARETTES [facility] Tobacco Use History This section includes a history of the smoking, or tobacco-related health factors, that were collected on or before the date of the Encounter. The data comes from the [place] facility where the Encounter took place. Date/Time Smoking Status/Tobacco Use Comment F jessie Jan 09, 2025 10:00 AM VA-TOBACCO USE FOR NAVI CIGARETTES [facility] February 07, 2024 02:30 PM VA-TOBACCO NEVER USED [facility] Jun 16, 2022 01:00 PM VA-TOBACCO FORMER USER [facility] Jun 16, 2022 01:00 PM VA-TOBACCO QUIT 15 YRS OR MORE [facility] Jun 09, 2021 09:30 AM VA-TOBACCO FORMER USER [facility] Jun 09, 2021 09:30 AM VA-TOBACCO QUIT 15 YRS OR MORE [facility] Jul 06, 2020 08:30 AM VA-TOBACCO FORMER USER [facility] Jul 06, 2020 08:30 AM VA-TOBACCO QUIT 15 YRS OR MORE [facility] Jun 11, 2019 01:24 PM VA-TOBACCO NEVER USED [facility] Aug 01, 2018 07:43 AM VA-TOBACCO FORMER USER [facility] Aug 01, 2018 07:43 AM VA-TOBACCO QUIT 15 YRS OR MORE [facility] Jun 27, 2017 08:56 AM V9 LIFETIME NON-USER OF TOBACCO [facility] Aug 08, 2016 10:07 AM V9 LIFETIME NON-USER OF TOBACCO [facility] Sep 07, 2015 08:51 AM V9 QUIT TOBACCO >7 YEARS AGO [facility] May 31, 2013 09:51 AM V9 QUIT TOBACCO >7 YEARS AGO [facility] May 31, 2013 09:51 AM V9 TOBACCO OFFERED [facility] Radiology Reports: +/- 30 days of the [...] the Encounter. The data comes from all [facility] facilities. Date/Time Radiology Report Provider Source Jan 09, 2025 10:27 AM CHEST TWO(2) VIEW PA&LAT: TERRY MARTINEZ [id number] -1945 M Exm Date: JAN 09, 2025@10:27 Req Phys: NICHOLAS LEVIN Loc: [facility] PACT GOLF 1-2 (Req'g Loc) [facility] Loc: [facility] RADIOLOGY Service: [place] [address] (Case [id number] COMPLETE)CHEST TWO(2) VIEW PA&LAT (RAD Detailed) CPT:58372 Reason for Study: CHRONIC COUGH Clinical History: Report Status: Verified Date Reported: JAN 09, 2025 Date Verified: JAN 09, 2025 Compounding Scaler E-Sig: Report: Comparison: February 02, 2022 Findings: Two views of the chest were obtained. Lungs are free of infiltrates. Heart size is normal. No pneumothorax or pleural effusions are seen. 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 Impression: 1. No acute disease Primary Diagnostic Code: NO ALERT REQUIRED Primary Interpreting Staff: SINTIA IBARRA, Staff Physician Verified by piece work checker for SINTIA IBARRA / SINTIA IBARRA [facility] Jan 09, 2025 10:27 AM HAND-RIGHT 3 OR MORE VIEWS: TERRY MARTINEZ JR [id number] -1945 M Exm Date: JAN 09, 2025@10:27 Req Phys: NICHOLAS LEVIN Pat Loc: [facility] PACT GOLF 1-2 (Req'g Loc) Img Loc: [facility] RADIOLOGY Service: [place] [address] (Case [id number] COMPLETE)HAND-RIGHT 3 OR MORE VIEWS (RAD Detailed) CPT:75463 Reason for Study: BILATERAL HAND PAIN Clinical History: UPDATING PLAIN FILMS FOR HAND CONSULT Report Status: Verified Date Reported: JAN 10, 2025 Date Verified: JAN 10, 2025 Compounding Scaler E-Sig: Report: HAND-RIGHT 3 OR MORE VIEWS, HAND-LEFT 3 OR MORE VIEWS, 01/09/2025 10:39 AM EDT INDICATION: BILATERAL HAND PAIN COMPARISON: February 07, 2024 Impression: No acute fracture or malalignment. 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 Primary Diagnostic Code: NO ALERT REQUIRED Primary Interpreting Staff: MARC BRAND, Staff Physician Verified by piece work checker for MARC BRAND /MARC GENAO [facility] Jan 09, 2025 10:27 AM HAND-LEFT 3 OR MORE VIEWS: TERRY MARTINEZ JR [id number] -1945 M Exm Date: JAN 09, 2025@10:27 Req Phys: NICHOLAS LEVIN Pat Loc: [facility] PACT GOLF 1-2 (Req'g Loc) Img Loc: [facility] RADIOLOGY Service: [place] [address] (Case [id number] COMPLETE)HAND-LEFT 3 OR MORE VIEWS (RAD Detailed) CPT:93079 Reason for Study: BILATERAL HAND PAIN Clinical History: UPDATING PLAIN FILMS FOR HAND CONSULT Report Status: Verified Date Reported: JAN 10, 2025 Date Verified: JAN 10, 2025 Compounding Scaler E-Sig: Report: HAND-RIGHT 3 OR MORE VIEWS, HAND-LEFT 3 OR MORE VIEWS, 01/09/2025 10:39 AM EDT INDICATION: BILATERAL HAND PAIN COMPARISON: February 07, 2024 Impression: No acute fracture or malalignment. 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 Primary Diagnostic Code: NO ALERT REQUIRED Primary Interpreting Staff: MARC BRAND, Staff Physician Verified by piece work checker for MARC BRAND /MARC GENAO [facility] Dec 19, 2024 08:34 AM SHOULDER-LEFT 2 OR MORE VIEWS: TERRY MARTINEZ JR [id number] -1945 M Exm Date: DEC 19, 2024@08:34 Req Phys: WILBERT WOOD Loc: [facility] ORTHO/SHOULDER/FOLLOWUP CD Img Loc: [facility] RADIOLOGY Service: [place] [address] (Case [id number] COMPLETE)SHOULDER-LEFT 2 OR MORE VIEWS (RAD Detailed) CPT:33079 Reason for Study: s/p surgery Clinical History: Report Status: Verified Date Reported: DEC 20, 2024 Date Verified: DEC 20, 2024 Compounding Scaler E-Sig: Report: EXAM: LEFT SHOULDER RADIOGRAPHS HISTORY: Status post surgery COMPARISON: 02/21/2024 FINDINGS: Redemonstration of reverse left glenohumeral arthroplasty, 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 No evidence for acute fracture, dislocation or hardware loosening. No lytic or blastic lesion. Moderate acromioclavicular degenerative changes. Soft tissues are unremarkable. Impression: 1. Stable postoperative changes of the left shoulder. READING PHYSICIAN: Prieto Truong M.D. -[phone] 12/20/2024 23:30 EDT [facility] National Teleradiology Program [phone] (For Medical Practitioner Use Only) Attention Patients / Veterans: If you have questions or concerns about these test results, please contact your ordering provider or primary care team. Primary Diagnostic Code: NO ALERT REQUIRED Primary Interpreting Staff: OUTSIDE SERVICE RADIOLOGY, Staff Physician / RADIOLOGY,OUTSIDE SERVICE [facility] Encounter Notes: All associated encounter notes This section contains the clinical notes associated to the Encounter. Date/Time Encounter Note(s) Provider Source Jan 09, 2025 11:11 AM ORTHOTICS PROSTHET ICS NOTE: LOCAL TITLE: SHOE EVAL AND FITTING NOTE STANDARD TITLE: ORTHOTICS PROSTHETICS NOTE DATE OF NOTE: JAN 09, 2025@11:11 ENTRY DATE: JAN 09, 2025@11:11:52 AUTHOR: ELI CERVANTES EXP COSIGNER: URGENCY: STATUS: COMPLETED Existing patient(please answer the two questions below) HPI: History provided by patient and [facility] electronic medical record. Shoe Needs: Extra depth Measurement with Ritz stick while standing Length: 11 Width: wide Risk Level: 2 Risk Level 2 At-Risk: Patient HAS demonstrated sensory loss AND Annual intake info Referring Clinic Podiatry Active problems - Computerized Problem List is the source for the followin. Exposure to potentially hazardous substance (SCT [id number]) 2. Brow ptosis 3. Chronic rhinitis 4. Mixed hyperlipidemia 5. Carcinoma of bladder 6. Transient ischemic attack 7. Gastroesophageal reflux disease 8. Benign essential hypertension 9. Type 2 diabetes mellitus without complication 10. Benign polyp of colon HP polyps resected Sep 2020 -- repeat in 10 years (2029). 11. Transient global amnesia (SNOMED CT [id number]) 12. Diabetes Mellitus without mention of Complication, type II or unspecified ty 13. Hyperlipidemia 14. Essential Hypertension 15. Transient Ischemic Attack * Weight: 189 lb [85.73 kg] (01/09/2025 09:34) requires special order shoes due to: Size not carried in stock Ordered today: Model: Ortho Tilos Size: 11 wide Color: Other Closure: Lace Model: ortho [id number] Size: 11 wide Color: Brown Closure: Lace Shoe Modifications: None [place] to RTC for shoe fitting 3-5 weeks. Will be notified by [employer] letter. was also advised of the following today: If has not received letter or phone call in 1 month call . If shoes are not picked up within (2) months of letter, they will be returned to stock. /vishnu/ ELI CERVANTES CLINICAL AUDITOR Signed: 01/09/2025 11:18 ELI CERVANTES [facility]
--- OUTSIDE RECORDS SUMMARY | 2025-01-28 10:44 | XMS_ITS | Encounter Summary ---
Author Name [facility] [place] Address [address] [place] [id number] Care Team Providers Care Card Cleaner Name Role Phone NICHOLAS LEVIN Primary Care [...] STEVENS EXPRE SS LINES Oct 09, 2020 [id number] CARLO MARTINEZ PATIENT C[employer]NA [facility] POINT OF SERVICE [id number] [phone] Oct 09, 2011 [id number] [phone] CARLO MARTINEZ PATIENT [facility]IGNA [facility] POINT OF SERVICE STEVENS EXPRE SS LINES Oct 09, 2020 [id number] [phone] CARLO MARTINEZ PATIENT [facility] PRESCRIPT ION NONE Oct 09, 2011 [id number] TERRY MARTINEZ JR PATIENT [facility] PRESCRIPT ION (0170 07/10 [id number] [phone]) Oct 09, 2011 NONE [id number] [phone] TERRY MARTINEZ JR PATIENT [facility] ([id number]) PRESCRIPT ION STEVENS EXPRE SS Oct 09, 2020 [id number] CARLO MARTINEZ PATIENT [facility] POINT OF SERVICE STEVENS EXPRE SS LINES Oct 09, 2011 [id number] CARLO MARTINEZ PATIENT MEDICARE (WNR) MEDICARE (M) PART A Jan 08, 2012 PART A [id number] TERRY MARTINEZ JR PATIENT [facility] Oct 09, 2011 [id number] CARLO MARTINEZ PATIENT Selected Encounter This section includes the information on record at [place] for the Encounter. Date/Time Encounter Type Encounter Description Reason Provider Source Dec 19, 2024 09:00 AM OFFICE O/P EST LOW 20 MIN ORTHO/JOINT SURG ICD-10-CM Z96.612 Presence of left artificial shoulder joint WILBERT WOOD [facility] Encounter Template Text not used by [place] Assessments - Encounter Diagnoses This section includes the primary and secondary diagnoses documented for the Encounter. Date/Time Primary/Secondary Diagnosis Diagnosis Name Provider Source Dec 19, 2024 09:07 AM PRIMARY Presence of left artificial shoulder joint [facility] Plan of Treatment: Future Appointments (+ 6 months) and Future Tests (+/- 45 days) The Plan of Treatment section includes future care activities for the patient from all [place] treatmentfacilities. This section includes future appointments and future orders which are active, pending or scheduled. Future Appointments This section includes appointments that were scheduled to occur 6 months from the date of the Encounter, up to a maximum of 20 appointments. The data comes from all [place] treatment facilities. Appointment Date/Time Appointment Type Appointme nt Facility Name Jan 09, 2025 10:00 AM [facility] Jan 09, 2025 11:15 AM [facility] [place] [facility] Jan 09, 2025 11:30 AM AM[facility]ULATORY - [facility] [place] [facility] Jan 23, 2025 01:15 PM [facility]ORY - NONE [place] [facility] Jan 28, 2025 11:00 AM [facility]ONE [facility] Jan 28, 2025 02:00 PM AMBULATORY - REHAB MEDICIN E [facility] Mar 28, 2025 10:40 AM [facility] SURG[facility] [facility] Apr 02, 2025 09:00 AM [facility] Active, Pending, and Scheduled Orders This section includes a listing of several types of active, pending, and scheduled orders, including clinic medications orders, diagnostic test orders, procedure orders and consult orders; where the start date of the order is 45 days before the date of the Encounter or 45 days after the date of theEncounter. The data comes from all [place] treatment facilities. Test Date/Time Test Type Test Details Facility Name Jan 09, 2025 12:00 AM Imaging - General Radiology Order ESOPHAGUS RAPID (MODIFIED BS) [facility] Jan 09, 2025 10:38 AM Consult Order SURGERY QUINN ND OUTPATIENT [facility] Jan 09, 2025 10:38 AM Consult Order OT OUTPATI ENT CDD [facility] Jan 09, 2025 10:38 AM Consult Order COMMUNITY [id number] BARIUM SWALLOW [facility] Lab Results: +/- 30 days of the [...] Type Comment Jan 09, 2025 10:15 AM [facility] ANTI-CCP (SRL) SERUM Specimen Type: SERUM No comment entered. Ordering Provider: NICHOLAS LEVIN Report Released Date/Time: Jan 09, 2025 10:07 AM Reporting Lab: [facility] [address] [facility] [place] [address] Performing Lab: [address] [address] ANTI-CCP (SRL) <0.5 0.5-2.9 Jan 09, 2025 10:15 AM [facility] ANTI-NUCLEAR Ab SERUM Specime n Type: SERUM No comment entered. Ordering Provider: NICHOLAS LEVIN Report Released Date/Time: Jan 09, 2025 10:07 AM Reporting Lab: [address] [address] Performing Lab: [address] [address] ANTI-NUCLEAR Ab <1:80 <1:80 Jan 09, 2025 10:15 AM [facility] RHEUMATOID FACTOR SERUM Speci men Type: SERUM No comment entered. Ordering Provider: NICHOLAS LEVIN Report Released Date/Time: Jan 09, 2025 10:07 AM Reporting Lab: [address] [address] Performing Lab: [address] [address] RHEUMATOID FACTOR <8 NEGATIVE [IU]/mL <8 NEGATIVE Jan 09, 2025 10:15 AM [facility] LIPID PROFILE PLASMA Specimen Type: PLASM A [...] Jan 09, 2025 10:07 AM Reporting Lab: [address] [address] Performing Lab: [address] [address] CHOLESTEROL 115 mg/dL 0-199 TRIGLYCERIDE 261 mg/dL H 0-149 HDL CHOLESTEROL 26 mg/dL L 40-69 DIRECT LDL CHOL. 44 mg/dL 0-100 Jan 09, 2025 10:15 AM [facility] GLYCOHEMOGLOBIN BLOOD Specimen Type: BLOOD Comment: [facility] guidelines for A1c interpretation: Glycemic control targets are based on Shared Decision Making between clinicians and patients. Criteria used to establish an A1c target recommendation can be found at https://www.nh.gov/qualityandpatientsafety/ and include the use of result accuracy [...] 8.73 and 9.27. Ref: https://ngsp.org/CAPdata.asp. The in-house Displair-Keepy D-100 analyzer has a historical CV <= 2%. Contact the laboratory for further performance characteristics of this assay. Ordering Provider: NICHOLAS LEVIN Report Released Date/Time: Jan 09, 2025 10:07 AM Reporting Lab: [address] [address] Performing Lab: [address] [address] GLYCOHEMOGLOBIN 5.3 4.4-5.6 Jan 09, 2025 10:15 AM [facility] CRP (for acute inflammation) PLASMA Specimen T [...] Jan 09, 2025 10:07 AM Reporting Lab: [facility] [address] [facility] [place] [address] Performing Lab: [address] [address] CRP (for acute inflammation) 1.0 mg/L 0. 0-5.0 Jan 09, 2025 10:15 AM [facility] SED RATE (ISED) BLOOD Specime n Type: BLOOD No comment entered. Ordering Provider: NICHOLAS LEVIN Report Released Date/Time: Jan 09, 2025 10:07 AM Reporting Lab: [address] [address] Performing Lab: [address] [address] SED RATE (ISED) 3 mm/h 0-20 Jan 09, 2025 10:15 AM [facility] TSH PLASMA Specimen Type: PLASM A Comment: [...] Jan 09, 2025 10:07 AM Reporting Lab: [address] [address] Performing Lab: [place] [id number] TSH 1.6243 m[IU]/mL 0.3500-4.9400 Jan 09, 2025 10:15 [facility]LO[facility] Specimen Type: BLOOD No comment entered. Ordering Provider: NICHOLAS LEVIN Report Released Date/Time: Jan 09, 2025 10:07 AM Reporting Lab: [address] [address] Performing Lab: [address] [address] WBC 7.0 10*3/uL 5.0-10.0 RBC 4.50 10*6/uL L 4.6-6.2 HGB 14.0 g/dL 14.0-18.0 HCT 41.3 L 42.0-52.0 MCV 91.8 fL 80.0-94.0 MCH 31.1 pg H 27.0-31.0 MCHC 33.9 g/dL 32.0-36.0 PLT 240 10*3/uL 150-450 MPV 9.1 fL 9.0-13.1 RDW 12.3 11.0-16.0 NRBC 0.0 0.0-0.0 Jan 09, 2025 10:15 AM [facility] PANEL 5 PLASMA Specimen Type: PLASM A [...] Jan 09, 2025 10:07 AM Reporting Lab: [address] [address] Performing Lab: [address] [address] CREATININE 0.94 mg/dL 0.72-1.25 UREA NITROGEN 20 [...] PHOS 79 U/L 40-150 eGFR (CKD-EPI) 83 Radiology Reports: +/- 30 days of the [...] the Encounter. The data comes from all [place] treatment facilities. Date/Time Radiology Report Provider Source Jan 09, 2025 10:27 AM CHEST TWO(2) VIEW PA&LAT: TERRY MARTINEZ JR [id number] -1945 M Exm Date: JAN 09, 2025@10:27 Req Phys: NICHOLAS LEVIN [facility] Loc: [facility] [place]: [place] [address] (Case [id number] COMPLETE)CHEST TWO(2) VIEW PA&LAT (RAD Detailed) CPT:40891 Reason for Study: CHRONIC COUGH Clinical History: Report Status: Verified Date Reported: JAN 09, 2025 Date Verified: JAN 09, 2025 Hay Farmer E-Sig: Report: Comparison: February 02, 2022 Findings: Two views of the chest were obtained. Lungs are free of infiltrates. Heart size is normal. No pneumothorax or pleural effusions are seen. 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 Impression: 1. No acute disease Primary Diagnostic Code: NO ALERT REQUIRED Primary Interpreting Staff: SINTIA IBARRA, Staff Physician Verified by milk pasteurizer for SINTIA IBARRA /SINTIA RUIZ [facility] Jan 09, 2025 10:27 AM HAND-RIGHT 3 OR MORE VIEWS: TERRY MARTINEZ JR [id number] -1945 Exm Date: JAN 09, 2025@10:27 Req Phys: NICHOLAS LEVIN Pat Loc: [facility] PACT GOLF 1-2 (Req'g Loc) Img Loc: [facility] Service: [place] [address] (Case [id number] COMPLETE)HAND-RIGHT 3 OR MORE VIEWS (RAD Detailed) CPT:18588 Reason for Study: BILATERAL HAND PAIN Clinical History: UPDATING PLAIN FILMS FOR HAND CONSULT Report Status: Verified Date Reported: JAN 10, 2025 Date Verified: JAN 10, 2025 Hay Farmer E-Sig: Report: HAND-RIGHT 3 OR MORE VIEWS, HAND-LEFT 3 OR MORE VIEWS, 01/09/2025 10:39 AM EDT INDICATION: BILATERAL HAND PAIN COMPARISON: February 07, 2024 Impression: No acute fracture or malalignment. 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 Primary Diagnostic Code: NO ALERT REQUIRED Primary Interpreting Staff: MARC BRAND, Staff Physician Verified by milk pasteurizer for MARC BRAND /MARC GENAO [facility] Jan 09, 2025 10:27 AM HAND-LEFT 3 OR MORE VIEWS: MICHELLESTEVENSON [id number] -1945 M Exm Date: JAN 09, 2025@10:27 Req Phys: NICHOLAS LEVIN Loc: [facility] PACT GOLF 1-2 (Req'g Loc) Img Loc: [facility] Service: [place] [address] (Case [id number] COMPLETE)HAND-LEFT 3 OR MORE VIEWS (RAD Detailed) CPT:25012 Reason for Study: BILATERAL HAND PAIN Clinical History: UPDATING PLAIN FILMS FOR HAND CONSULT Report Status: Verified Date Reported: JAN 10, 2025 Date Verified: JAN 10, 2025 Hay Farmer E-Sig: Report: HAND-RIGHT 3 OR MORE VIEWS, HAND-LEFT 3 OR MORE VIEWS, 01/09/2025 10:39 AM EDT INDICATION: BILATERAL HAND PAIN COMPARISON: February 07, 2024 Impression: No acute fracture or malalignment. 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 Primary Diagnostic Code: NO ALERT REQUIRED Primary Interpreting Staff: MARC BRAND, Staff Physician Verified by milk pasteurizer for MARC BRAND /MARC GENAO [facility] Dec 19, 2024 08:34 AM SHOULDER-LEFT 2 OR MORE VIEWS: TERRY MARTINEZ JR [id number] -1945 M Exm Date: DEC 19, 2024@08:34 Req Phys: NINAWILBERT Pat Loc: [facility] ORTHO/SHOULDER/FOLLOWUP CD Img Loc: [facility] RADIOLOGY Service: Unknown [place] [id number] (Case [id number] COMPLETE)SHOULDER-LEFT 2 OR MORE VIEWS (RAD Detailed) CPT:99799 Reason for Study: s/p surgery Clinical History: Report Status: Verified Date Reported: DEC 20, 2024 Date Verified: DEC 20, 2024 Hay Farmer E-Sig: Report: EXAM: LEFT SHOULDER RADIOGRAPHS HISTORY: Status post surgery COMPARISON: 02/21/2024 FINDINGS: Redemonstration of reverse left glenohumeral arthroplasty, 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 No evidence for acute fracture, dislocation or hardware loosening. No lytic or blastic lesion. Moderate acromioclavicular degenerative changes. Soft tissues are unremarkable. Impression: 1. Stable postoperative changes of the left shoulder. READING PHYSICIAN: Prieto Truong M.D. -[phone] 12/20/2024 23:30 EDT [facility] National Teleradiology Program [phone] (For Medical Practitioner Use Only) Attention Patients / Veterans: If you have questions or concerns about these test results, please contact your ordering provider or primary care team. Primary Diagnostic Code: NO ALERT REQUIRED Primary Interpreting Staff: OUTSIDE SERVICE RADIOLOGY, Staff Physician / RADIOLOGY,OUTSIDE SERVICE [facility] Encounter Notes: All associated encounter notes This section contains the clinical notes associated to the Encounter. Date/Time Encounter Note(s) Provider Source Dec 19, 2024 10:11 AM SURGERY NURSING NO TE: LOCAL TITLE: SURGERY CLINIC INTAKE NOTE STANDARD TITLE: SURGERY NURSING NOTE DATE OF NOTE: DEC 19, 2024@10:11 ENTRY DATE: DEC 19, 2024@10:11:17 AUTHOR: ROLY PALAFOX COSIGNER: URGENCY: STATUS: COMPLETED The patient was given a list of his/her medications, instructed to review and discuss any changes or problems with their provider. Patient advised to carry a list of current medications and any allergies with them in the event of emergency situations. Allergies: local and remote SULFA DRUGS No Remote Allergy/ADR Data available for this patient Medication Reconciliation MRR1 - Med Reconciliation INCLUDED IN THIS LIST: Alphabetical list of active outpatient prescriptions dispensed from this [place] (local) and dispensed from another [place] or [facility] facility (remote) as well as inpatient orders (local pending and active), local clinic medications, locally documented non-VA medications, and local prescriptions that have or been discontinued in the past 90 days. Non-VA Meds Last Documented On: Jun 27, 2017 NOTE The display of VA prescriptions dispensed from another [place] or [facility]D facility (remote) is limited to active outpatient prescription entries matched to National Drug File at the originating site and may not include some items such as investigational drugs, compounds, etc. NOT INCLUDED IN THIS LIST: Medications self-entered by the patient into personal health records (i.e. [id number]) are NOT included in this list. Non-VA medications documented outside this [place], remote inpatient orders (regardless of status) and remote clinic medications are NOT included in this list. The patient and provider must always discuss medications the patient is taking, regardless of where the medication was dispensed or obtained. Non-VA ASPIRIN 81MG EC TAB TAKE ONE TABLET BY MOUTH DAILY Patient wants to buy from Non-VA pharmacy. OUTPT ATORVASTATIN CALCIUM 40MG TAB (Status = Active) TAKE ONE-HALF TABLET BY MOUTH DAILY FOR CHOLESTEROL -DO NOT DRINK GRAPEFRUIT JUICE WHILE ON THIS DRUG Rx# [id number] Last Released: 12/10/24 Qty/Days Supply: 45 Rx Expiration Date: 06/20/25 Refills Remainin OUTPT DICLOFENAC NA 1% TOP GEL (Status = Discontinued) APPLY 2 GRAM STRIP TO AFFECTED AREA EVERY 6 HOURS NEEDED FOR HAND PAIN Rx# [id number] Last Released: 04/22/24 Qty/Days Supply: 100/30 Rx Expiration Date: 02/20/25 Refills Remainin Indication: FOR HAND PAIN Non-VA FISH OIL CAP,ORAL TAKE 1200MG BY MOUTH EVERY DAY Patient wants to buy from Non-VA pharmacy. OUTPT KETOCONAZOLE 2% CREAM (Status = Active) APPLY SMALL AMOUNT TO AFFECTED AREA TWICE A DAY FOR FUNGAL INFECTION -APPLY TO DRY SCALY AREAS OF FEET UNTIL CLEAR. Rx# [id number] Last Released: 12/06/24 Qty/Days Supply: 60/30 Rx Expiration Date: 12/07/25 Refills Remainin Indication: FOR FUNGAL INFECTION OUTPT LISINOPRIL 10MG TAB (Status = Active) TAKE ONE-HALF TABLET BY MOUTH DAILY FOR BLOOD PRESSURE/HEART Rx# [id number] Last Released: 10/11/24 Qty/Days Supply: 45 Rx Expiration Date: 06/20/25 Refills Remainin OUTPT LORATADINE 10MG TAB (Status = Active) TAKE ONE TABLET BY MOUTH DAILY FOR ALLERGIES MAY CAUSE DROWSINESS Rx# [id number] Last Released: 10/11/24 Qty/Days Supply: Rx Expiration Date: 04/16/25 Refills Remainin Indication: FOR ALLERGIES OUTPT THERA-DERM MOISTURIZING LOTION (Status = Active) APPLY SMALL AMOUNT TO AFFECTED AREA NEEDED FOR DRY SKIN Rx# [id number] Last Released: 12/06/24 Qty/Days Supply: 240/30 Rx Expiration Date: 12/07/25 Refills Remainin Indication: FOR DRY SKIN SUPPLIES /vishnu/ ROLY PALAFOX [facility] [employer] Signed: 12/19/2024 10:11 ROLY PALAFOXCathie [facility] Dec 19, 2024 09:02 AM ORTHOPEDIC SURGERY NOTE: LOCAL TITLE: ORTHOPEDIC CLINIC PHYSICIAN NOTE STANDARD TITLE: ORTHOPEDIC SURGERY NOTE DATE OF NOTE: DEC 19, 2024@09:02 ENTRY DATE: DEC 19, 2024@09:02:20 AUTHOR: WILBERT WOOD COSIGNER: URGENCY: STATUS: COMPLETED Nursing Screening Note reviewed: PAIN: 0 (12/19/2024 08:49) Presenting problems and reason for visit: Follow-up left shoulder reverse TSA History:79-year-old male here for routine follow-up now 1 year since reverse TSA. Patient says he is doing very well has no issues has no pain except sometimes when he sleeps on it wrong. He is able to do all his chores including 50 pound bags of cement. He is very happy with the surgical outcome Exam:Left shoulder surgical scar no swelling no ecchymosis no deformity. No tenderness on palpation. Active range of motion forward flexion to 110 abduction to 100 internal rotation to L5, external rotation 40. Neurovascular intact ROS: No other issues X-ray findings: X-rays reveal stable left reverse total shoulder prosthesis with no signs of loosening Impression:Status post left reverse total shoulder arthroplasty Treatment plan/Follow-up treatment and patient instructions:Patient doing well advised on continuing with his range of motion and maintenance of strength. He can follow-up as needed for his shoulder. No routine follow-up /vishnu/ WILBERT WOOD Orthopedic PA Signed: 12/19/2024 09:07 WILBERT WOOD [facility]
--- NOTE | 2025-01-28 10:45 | FL_ITS ---
FINAL REPORT CLINICAL HISTORY: DYSPHAGIA TROUBLE SWALLOWING 235.35 DAP 3.24 FLUORO FINDINGS: MODIFIED BARIUM SWALLOW History: Dysphagia FINDINGS: Fluoroscopy was provided for the speech pathologist to evaluate the swallowing mechanism. The patient was given several different consistencies of barium while the swallow was visualized fluoroscopically. The report of the speech pathologist should be consulted prior to making dietary decisions. Fluoroscopy time: 3 minutes 24 seconds Fluoro dose: 235.35 DAP in uGym2 IMPRESSION: Modified barium swallow under fluoroscopic guidance. Please see the report of the speech pathologist for Dietary recommendations. Films reviewed , interpreted and dictated by Dr. Núñez. Transcribed by Jason Molina PA-C. Reviewed, Interpreted and Dictated by Eric Núñez MD Transcribed by DELMY Lucero Authenticated and [facility]
--- OUTSIDE RECORDS SUMMARY | 2025-01-28 10:45 | XMS_ITS | Encounter Summary ---
Author Name [facility] Organization [facility] [place] Address [address] [place] [id number] Care Team Providers Care Med Spec Name Role Phone NICHOLAS LEVIN Primary Care [...] STEVENS EXPRE SS LINES Oct 09, 2020 [id number] CARLO MARTINEZ PATIENT [facility] POINT OF SERVICE [id number] [phone] Oct 09, 2011 [id number] [phone] CARLO MARTINEZ PATIENT [facility] POINT OF SERVICE STEVENS EXPRE SS LINES Oct 09, 2020 [id number] CARLO MARTINEZ PATIENT [facility] PRESCRIPT ION (0170 07/10 [phone]) Oct 09, 2011 NONE [id number] [phone] TERRY MARTINEZ JR PATIENT [facility] PRESCRIPT ION NONE Oct 09, 2011 [id number] [phone] TERRY MARTINEZ JR PATIENT [employer] ([id number]) PRESCRIPT ION STEVENS EXPRE SS Oct 09, 2020 [id number] CARLO MARTINEZ PATIENT [facility] [employer] POINT OF SERVICE STEVENS EXPRE SS LINES Oct 09, 2011 [id number] CARLO MARTINEZ PATIENT MEDICARE (WNR) MEDICARE (M) PART A Jan 08, 2012 PART A [id number] TERRY MARTINEZ JR [facility] Oct 09, 2011 [id number] CARLO MARTINEZ PATIENT Selected Encounter This section includes the information on record at OR for the Encounter. Date/Time Encounter Type Encounter Description Reason Provider Source Jan 23, 2025 01:15 PM HEARING AID REPAIR/MODIFYIN G AUDIOLOGY ICD-10-CM Z46.1 Encounter for fitting and adjustment of hearing aid QUAN POWERS Norma Encounter Template Text not used by OR Assessments - Encounter Diagnoses This section includes the primary and secondary diagnoses documented for the Encounter. Date/Time Primary/Secondary Diagnosis Diagnosis Name Provider Source Jan 23, 2025 02:08 PM PRIMARY Encounter for fitting and adjustment of hearing aid MIMI MEJIA [facility] Jan 23, 2025 02:08 PM SECONDARY Sensorineural hearing loss, bilateral MIMI MEJIA [facility] Plan of Treatment: Future Appointments (+ 6 months) and Future Tests (+/- 45 days) The Plan of Treatment section includes future care activities for the patient from all OR treatmentfacilities. This section includes future appointments and future orders which are active, pending or scheduled. Future Appointments This section includes appointments that were scheduled to occur 6 months from the date of the Encounter, up to a maximum of 20 appointments. The data comes from all [place] treatment facilities. Appointment Date/Time Appointment Type Appointme nt Facility Name Jan 28, 2025 11:00 AM AMBULATORY - NONE [facility] Jan 28, 2025 02:00 PM AMBULATORY - REHAB MEDICIN E MARLA [facility] Mar 28, 2025 10:40 AM AMBULATORY - SURGERY LEXIN GTJAIMIE [facility] Apr 02, 2025 09:00 AM AMBULATORY - SURGERY LEXIN GTON-CDCathie [facility] Active, Pending, and Scheduled Orders This section includes a listing of several types of active, pending, and scheduled orders, including clinic medications orders, diagnostic test orders, procedure orders and consult orders; where the start date of the order is 45 days before the date of the Encounter or 45 days after the date of theEncounter. The data comes from all [place] treatment facilities. 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 Radiology Reports and Pathology Reports are provided separately, in subsequent sections. Lab Results This section contains the Chemistry/Hematology Results that were resulted 30 days before or 30 daysafter the date of the Encounter. Date/Time Source Result Type Result - Unit Interpretation Reference Range Specimen Type Comment Jan 09, 2025 10:15 AM [facility] N ANTI-CCP (SRL) SERUM Specimen Type: SERUM No comment entered. Ordering Provider: NICHOLAS LEVIN Report Released Date/Time: Jan 09, 2025 10:07 AM Reporting Lab: [address] [address] Performing Lab: [address] [address] ANTI-CCP (SRL) <0.5 0.5-2.9 Jan 09, 2025 10:15 AM [facility] ANTI-NUCLEAR Ab SERUM Specime n Type: SERUM No comment entered. Ordering Provider: NICHOLAS LEVIN Report Released Date/Time: Jan 09, 2025 10:07 AM Reporting Lab: [address] [address] Performing Lab: [address] [address] ANTI-NUCLEAR Ab <1:80 <1:80 Jan 09, 2025 10:15 AM [facility] RHEUMATOID FACTOR SERUM Speci men Type: SERUM No comment entered. Ordering Provider: NICHOLAS LEVIN Report Released Date/Time: Jan 09, 2025 10:07 AM Reporting Lab: [facility] [address] [facility] [address] Performing Lab: [address] [address] RHEUMATOID FACTOR <8 NEGATIVE [IU]/mL <8 NEGATIVE Jan 09, 2025 10:15 AM [facility] LIPID PROFILE PLASMA Specimen Type: PLASM [...] Jan 09, 2025 10:07 AM Reporting Lab: [address] [address] Performing Lab: [address] [address] CHOLESTEROL 115 mg/dL 0-199 TRIGLYCERIDE 261 mg/dL H 0-149 HDL CHOLESTEROL 26 mg/dL L 40-69 DIRECT LDL CHOL. 44 mg/dL 0-100 Jan 09, 2025 10:15 AM [facility] GLYCOHEMOGLOBIN BLOOD Specimen Type: BLOOD Comment: [place]-[facility] guidelines for A1c interpretation: Glycemic control targets are based on Shared Decision Making between clinicians and patients. Criteria used to establish an A1c target recommendation can be found at https://www.ga.gov/qualityandpatientsafety/ and include the use of result accuracy [...] 8.73 and 9.27. Ref: https://ngsp.org/CAPdata.asp. The in-house [employer] D-100 analyzer has a historical CV <= 2%. Contact the laboratory for further performance characteristics of this assay. Ordering Provider: NICHOLAS LEVIN Report Released Date/Time: Jan 09, 2025 10:07 AM Reporting Lab: [address] [address] Performing Lab: [address] [address] GLYCOHEMOGLOBIN 5.3 4.4-5.6 Jan 09, 2025 10:15 AM [facility] TSH PLASMA Specimen Type: PLASM A [...] Jan 09, 2025 10:07 AM Reporting Lab: [address] [address] Performing Lab: [address] [address] TSH 1.6243 m[IU]/mL 0.3500-4.9400 Jan 09, 2025 10:15 AM [facility] CRP (for acute inflammation) PLASMA Specimen T [...] Jan 09, 2025 10:07 AM Reporting Lab: [address] [address] Performing Lab: [address] [address] CRP (for acute inflammation) 1.0 mg/L 0. 0-5.0 Jan 09, 2025 10:15 AM [facility] SED RATE (ISED) BLOOD Specime n Type: BLOOD No comment entered. Ordering Provider: NICHOLAS LEVIN Report Released Date/Time: Jan 09, 2025 10:07 AM Reporting Lab: [place] [id number] Performing Lab: [place] [address] SED RATE (ISED) 3 mm/h 0-20 Jan 09, 2025 10:15 AM [facility] CBC/PLT BLOOD Specimen Type: BLOOD No comment entered. Ordering Provider: NICHOLAS LEVIN Report Released Date/Time: Jan 09, 2025 10:07 AM Reporting Lab: [place] [address] Performing Lab: [place] [address] WBC 7.0 10*3/uL 5.0-10.0 RBC 4.50 10*6/uL L 4.6-6.2 HGB 14.0 g/dL 14.0-18.0 HCT 41.3 L 42.0-52.0 MCV 91.8 fL 80.0-94.0 MCH 31.1 pg H 27.0-31.0 MCHC 33.9 g/dL 32.0-36.0 PLT 240 10*3/uL 150-450 MPV 9.1 fL 9.0-13.1 RDW 12.3 11.0-16.0 NRBC 0.0 0.0-0.0 Jan 09, 2025 10:15 AM [facility] PANEL 5 PLASMA Specimen Type: PLASM [...] Jan 09, 2025 10:07 AM Reporting Lab: [address] [address] Performing Lab: [address] [address] CREATININE 0.94 mg/dL 0.72-1.25 UREA NITROGEN 20 [...] the Encounter. The data comes from all [place] treatment facilities. Date/Time Radiology Report Provider Source Jan 09, 2025 10:27 AM CHEST TWO(2) VIEW PA&LAT: TERRY MARTINEZ JR [id number] -1945 M Exm Date: JAN 09, 2025@10:27 Req Phys: NICHOLAS LEVIN Loc: [facility] 1-2 (Req'g Loc) Img Loc: [facility] Service: [place] [address] (Case [id number] COMPLETE)CHEST TWO(2) VIEW PA&LAT (RAD Detailed) CPT:68358 Reason for Study: CHRONIC COUGH Clinical History: Report Status: Verified Date Reported: JAN 09, 2025 Date Verified: JAN 09, 2025 Marbleizing Machine Tender E-Sig: Report: Comparison: February 02, 2022 Findings: Two views of the chest were obtained. Lungs are free of infiltrates. Heart size is normal. No pneumothorax or pleural effusions are seen. 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 Impression: 1. No acute disease Primary Diagnostic Code: NO ALERT REQUIRED Primary Interpreting Staff: SINTIA IBARRA, Staff Physician Verified by rod welder for SINTIA IBARRA /SINTIA RUIZ [facility] Jan 09, 2025 10:27 AM HAND-RIGHT 3 OR MORE VIEWS: TERRY MARTINEZ JR [id number] -1945 M Exm Date: JAN 09, 2025@10:27 Req Phys: NICHOLAS LEVIN Loc: [facility] 1-2 (Req'g Loc) Img Loc: [facility] Service: [place] [address] (Case [id number] COMPLETE)HAND-RIGHT 3 OR MORE VIEWS (RAD Detailed) CPT:24193 Reason for Study: BILATERAL HAND PAIN Clinical History: UPDATING PLAIN FILMS FOR HAND CONSULT Report Status: Verified Date Reported: JAN 10, 2025 Date Verified: JAN 10, 2025 Marbleizing Machine Tender E-Sig: Report: HAND-RIGHT 3 OR MORE VIEWS, HAND-LEFT 3 OR MORE VIEWS, 01/09/2025 10:39 AM EDT INDICATION: BILATERAL HAND PAIN COMPARISON: February 07, 2024 Impression: No acute fracture or malalignment. 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 Primary Diagnostic Code: NO ALERT REQUIRED Primary Interpreting Staff: MARC BRAND, Staff Physician Verified by rod welder for MARC BRAND /[facility]ARC [facility]O [facility] Jan 09, 2025 10:27 AM HAND-LEFT 3 OR MORE VIEWS: TERRY MARTINEZ [id number] -1945 M Exm Date: JAN 09, 2025@10:27 Req Phys: NICHOLAS LEVIN Pat Loc: [facility] 1-2 (Req'g Loc) g Loc: [facility] Service: [place] [address] (Case [id number] COMPLETE)HAND-LEFT 3 OR MORE VIEWS (RAD Detailed) CPT:60101 Reason for Study: BILATERAL HAND PAIN Clinical History: UPDATING PLAIN FILMS FOR HAND CONSULT Report Status: Verified Date Reported: JAN 10, 2025 Date Verified: JAN 10, 2025 Marbleizing Machine Tender E-Sig: Report: HAND-RIGHT 3 OR MORE VIEWS, HAND-LEFT 3 OR MORE VIEWS, 01/09/2025 10:39 AM EDT INDICATION: BILATERAL HAND PAIN COMPARISON: February 07, 2024 Impression: No acute fracture or malalignment. 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 Primary Diagnostic Code: NO ALERT REQUIRED Primary Interpreting Staff: MARC BRAND, Staff Physician Verified by rod welder for MARC BRAND /MARC GENAO [facility] Encounter Notes: All associated encounter notes This section contains the clinical notes associated to the Encounter. Date/Time Encounter Note(s) Provider Source Jan 23, 2025 02:05 PM AUDIOLOGY IS ARCHITECT NOTE: LOCAL TITLE: AUDIOLOGY HEARING AID REPAIR STANDARD TITLE: AUDIOLOGY IS ARCHITECT NOTE DATE OF NOTE: JAN 23, 2025@14:05 ENTRY DATE: JAN 23, 2025@14:05:16 AUTHOR: MIMI MEJIA COSIGNER: NINA POWERS URGENCY: STATUS: COMPLETED S: The was seen in the [facility]. The 's most recent test results revealed a bilateral sensory hearing loss The has been issued the below devices 07/13/22 GN RESOUND RESOUND ONE 61 MINI KADIE-R R [id number] NA [facility] 07/13/22 GN RESOUND RESOUND ONE 61 MINI KADIE-R L [id number] 06/24/25 11/22/22 [facility] Reason for visit: pick pulling machine tender aid from repair O: OTOSCOPY RIGHT EAR EACs were clear, and tympanic membranes were visualized Au. LEFT EAR EACs were clear, and tympanic membranes were visualized Au. A: patient picked aid up from repair,paired aids with patients phone and showed patient steps to take to pair or unpair/forget device incase he ever had to pair aids back again himself P: RIGHT HEARING AID left with hearing aid in proper function. LEFT HEARING AID Benson left with hearing aid in proper function. The can report to one of the Audiology Walk-In Repair Clinics: [facility], [facility] or [facility] Monday through from 8am to 12pm and 1pm to 2:30pm - with any fit/physical hearing aid issues. Benson may call to make a 30-minute appointment in the [place] [id number] rehab clinic if any sound quality issues arise. /aram MEJIA Signed: 01/23/2025 14:08 /vishnu/ NINA POWERS Staff Attendant [place] Cosigned: 01/23/2025 16:11 [facility]
--- OUTSIDE RECORDS SUMMARY | 2025-01-28 10:45 | XMS_ITS | Encounter Summary ---
Author Name [facility] Address [address] [place] [address] Care Team Providers Care Video Specialist Name Role Phone NICHOLAS JETER Primary Care Provider Unavailabl e Insurance Providers: [...] STEVENS EXPRE SS LINES Oct 09, 2020 [id number] CARLO MARTINEZ PATIENT CIGNA [facility] POINT OF SERVICE [id number] Oct 09, 2011 [id number] [phone] CARLO MARTINEZ PATIENT CIGNA [facility] POINT OF SERVICE STEVENS EXPRE SS LINES Oct 09, 2020 [id number] CARLO MARTINEZ PATIENT CIGNA [facility]ARMAC[facility] PRESCRIPT ION NONE Oct 09, 2011 [id number] TERRY MARTINEZ JR PATIENT [employer] PHARMACY PRESCRIPT ION (0170 07/10 [id number] 0) Oct 09, 2011 NONE [id number] [phone] TERRY MARTINEZ JR PATIENT [employer] ([id number]) PRESCRIPT ION STEVENS EXPRE SS Oct 09, 2020 [id number] CARLO MARTINEZ PATIENT [employer] POINT OF SERVICE STEVENS EXPRE SS LINES Oct 09, 2011 [id number] CARLO MARTINEZ PATIENT MEDICARE (WNR) MEDICARE (M) PART A Jan 08, 2012 PART A [id number] TERRY MARTINEZ JR PATIENT [facility] Oct 09, 2011 [id number] CARLO MARTINEZ PATIENT Selected Encounter This section includes the information on record at [place] for the Encounter. Date/Time Encounter Type Encounter Description Reason Pro vider Source Apr 22, 2024 09:34 AM Outpatient Encounter AMBULATORY IHE Encounter Template Text not used by [place] Plan of Treatment: Future Appointments (+ 6 months) and Future Tests (+/- 45 days) The Plan of Treatment section includes future care activities for the patient from all [place] treatmentfacilities. This section includes future appointments and future orders which are active, pending or scheduled. Future Appointments This section includes appointments that were scheduled to occur 6 months from the date of the Encounter, up to a maximum of 20 appointments. The data comes from all [place] treatment facilities. Appointment Date/Time Appointment Type Appointme nt Facility Name May 06, 2024 08:30 AM AMBULATORY - REHAB MEDICIN E [facility] Jun 21, 2024 09:40 AM AMBULATORY - SURGERY [facility] Social History: Smoking Status (Most current) and Tobacco Use (All prior to encounter date) This section includes the most current, and the historical, smoking and tobacco- related health factors from the [place] facility where the Encounter took place. Current Smoking Status This section includes the most current smoking, or tobacco-related health factor, from the [place] facility where the Encounter took place. Date/Time Current Smoking Status Comment Colby corado February 07, 2024 02:30 PM VA-TOBACCO NEVER USED [facility] Tobacco Use History This section includes a history of the smoking, or tobacco-related health factors, that were collected on or before the date of the Encounter. The data comes from the [place] facility where the Encounter took place. Date/Time Smoking Status/Tobacco Use [facility] Jun 16, 2022 01:00 PM VA-TOBACCO FORMER USER [facility] Jun 16, 2022 01:00 PM VA-TOBACCO QUIT 15 YRS OR MORE [facility] Jun 09, 2021 09:30 AM VA-TOBACCO FORMER USER [facility] Jun 09, 2021 09:30 AM VA-TOBACCO QUIT 15 YRS OR MORE [facility] Jul 06, 2020 08:30 AM VA-TOBACCO FORMER USER [facility] Jul 06, 2020 08:30 AM VA-TOBACCO QUIT 15 YRS OR MORE [facility] Jun 11, 2019 01:24 PM VA-TOBACCO NEVER USED [facility] Aug 01, 2018 07:43 AM VA-TOBACCO FORMER USER [facility] Aug 01, 2018 07:43 AM VA-TOBACCO QUIT 15 YRS OR MORE [facility] Jun 27, 2017 08:56 AM V9 LIFETIME NON-USER OF TOBACCO [facility] Aug 08, 2016 10:07 AM V9 LIFETIME NON-USER OF TOBACCO [facility] Sep 07, 2015 08:51 AM V9 QUIT TOBACCO >7 YEARS AGO [facility] May 31, 2013 09:51 AM V9 QUIT TOBACCO >7 YEARS AGO [facility] May 31, 2013 09:51 AM V9 TOBACCO OFFERED [facility] Pathology Reports: +/- 30 days of the encounter Pathology Reports For cases when an order for pathology services may have been completed prior to the date of the Encounter, the report list includes the Pathology Reports that were completed up to 30 days before dateof the Encounter. For cases when an order for pathology services may have been completed after the date of the Encounter, the report list also includes the Pathology Reports that were completed up to30 days after date of the Encounter. The data comes from all [facility]. Date/Time Pathology Report Provider Source Apr 22, 2024 08:47 AM LR SURGICAL PATHOL OGDaniela REPORT: LOCAL TITLE: LR SURGICAL PATHOLOGY REPORT DATE OF NOTE: APR 22, 2024@08:47:56 ENTRY DATE: APR 22, 2024@08:47:56 AUTHOR: KARLI GAMEZ COSIGNER: URGENCY: STATUS: COMPLETED $APHDR Reporting Lab: [facility] [CLIA# [id number]] [address] [place] [address] - - - - - - - - - - - - - - - - - - - - - - - - - - - - - - - - - - - - - - - - MEDICAL RECORD SURGICAL PATHOLOGY - - - - - - - - - - - - - - - - - - - - - - - - - - - - - - - - - - - - - - - - PATHOLOGY REPORT Accession No. [id number] - - - - - - - - - - - - - - - - - - - - - - - - - - - - - - - - - - - - - - - - $TEXT Submitted by: DA Date obtained: Apr 18, 2024 - - - - - - - - - - - - - - - - - - - - - - - - - - - - - - - - - - - - - - - - Specimen (Received Apr 18, 2024 13:03): LEFT DELTOID (SHAVE) - - - - - - - - - - - - - - - - - - - - - - - - - - - - - - - - - - - - - - - - BRIEF CLINICAL HISTORY: COPY(S) GIVEN TO PATIENT: NO CHECK VISTA IMAGING FOR SPECIMEN(S) PHOTO 20 MM IRREGULAR PINK SHINY PLAQUE. - - - - - - - - - - - - - - - - - - - - - - - - - - - - - - - - - - - - - - - - PREOPERATIVE DIAGNOSIS: RULE OUT AK VS SUP BCC. - - - - - - - - - - - - - - - - - - - - - - - - - - - - - - - - - - - - - - - - OPERATIVE FINDINGS: PROCEDURE - SHAVE BIOPSY. FINDINGS - NOT GIVEN. - - - - - - - - - - - - - - - - - - - - - - - - - - - - - - - - - - - - - - - - POSTOPERATIVE DIAGNOSIS: NOT GIVEN. Surgeon/physician: ZACK GREENFIELD =-=-=-=-=-=-=-=-=-=-=-=-=-= -=-=-=-=-=-=-=-=-=-=-=-=-=- =-=-=-=-=-=-=-=-=-=-=-=-= - - - - - - - - - - - - - - - - - - - - - - - - - - - - - - - - - - - - - - - - PATHOLOGY REPORT Accession No. [id number] - - - - - - - - - - - - - - - - - - - - - - - - - - - - - - - - - - - - - - - - Pathology Resident: BRAYAN RICARDO The specimen is received in formalin labeled shave biopsy left deltoid and consists of one white/zhang skin tissue fragment measuring 1.4 x 1.1 x 0.2 cm. The skin surface is remarkable for a brown irregular plaque measuring 1.0 x 0.8 cm. The cut surface is white/zhang, unremarkable and inked blue. The specimen is serially sectioned and entirely submitted in one cassette. CPT CODE - [id number] MICROSCOPIC EXAM/DIAGNOSIS: Skin, left deltoid, shave biopsy: -Basal cell carcinoma, superficial pattern . /vishnu/ KARLI GAMEZ pathologist Signed Apr 22, 2024@08:47 Performing Laboratory: Surgical Pathology Report Performed By: [facility] [CLIA# [id number]] [address] [place] [id number] $FTR - - - - - - - - - - - - - - - - - - - - - - - - - - - - - - - - - - - - - - - - (End of report) KARLI GAMEZ MD [facility] Date Apr 22, 2024 - - - - - - - - - - - - - - - - - - - - - - - - - - - - - - - - - - - - - - - - TERRY MARTINEZ JR STANDARD FORM 515 ID:[id number] SEX:M :1945 AGE: 79 LOC:PATH PCP: Nicholas Jeter /aram GAMEZ pathologist Signed: 04/22/2024 08:47 KARLI GAMEZ-CDD [facility] Apr 05, 2024 04:13 PM LR CYTOPATHOLOGY R EPORT: LOCAL TITLE: LR CYTOPATHOLOGY REPORT DATE OF NOTE: APR 05, 2024@16:13:54 ENTRY DATE: APR 05, 2024@16:13:54 AUTHOR: YOGESH ROMEROIGNER: URGENCY: STATUS: COMPLETED $APHDR Reporting Lab: [facility] [IA# [id number]] [address] [place] [address] - - - - - - - - - - - - - - - - - - - - - - - - - - - - - - - - - - - - - - - - MEDICAL RECORD CYTOPATHOLOGY - - - - - - - - - - - - - - - - - - - - - - - - - - - - - - - - - - - - - - - - PATHOLOGY REPORT Accession No. [id number] - - - - - - - - - - - - - - - - - - - - - - - - - - - - - - - - - - - - - - - - $TEXT Submitted by: UROLOGY Date obtained: Apr 03, 2024 14:07 - - - - - - - - - - - - - - - - - - - - - - - - - - - - - - - - - - - - - - - - Specimen (Received Apr 03, 2024 14:07): VOIDED URINE - - - - - - - - - - - - - - - - - - - - - - - - - - - - - - - - - - - - - - - - BRIEF CLINICAL HISTORY: HISTORY OF BLADDER CANCER. - - - - - - - - - - - - - - - - - - - - - - - - - - - - - - - - - - - - - - - - PREOPERATIVE DIAGNOSIS: HISTORY OF BLADDER CANCER. - - - - - - - - - - - - - - - - - - - - - - - - - - - - - - - - - - - - - - - - OPERATIVE FINDINGS: - - - - - - - - - - - - - - - - - - - - - - - - - - - - - - - - - - - - - - - - POSTOPERATIVE DIAGNOSIS: N/A. Surgeon/physician: MARIA ELENA SÁNCHEZ III, MD =-=-=-=-=-=-=-=-=-=-=-=-=-= -=-=-=-=-=-=-=-=-=-=-=-=-=- =-=-=-=-=-=-=-=-=-=-=-=-= - - - - - - - - - - - - - - - - - - - - - - - - - - - - - - - - - - - - - - - - PATHOLOGY REPORT Accession No. [id number] - - - - - - - - - - - - - - - - - - - - - - - - - - - - - - - - - - - - - - - - Screened by: SADA STEIN Gross Description CPT: [id number]. THINPREP X 1. RECEIVED 30 ML OF YELLOW, CLEAR FLUID. Diagnosis: URINE, VOIDED (THINPREP): -NO EVIDENCE OF HIGH GRADE UROTHELIAL CARCINOMA. /vishnu/ Yogesh Romero MD Pathologist Signed Apr 05, 2024@16:13 Performing Laboratory: Cytology Report Performed By: [facility] [CLIA# [id number]] [address] [place] [address] $FTR - - - - - - - - - - - - - - - - - - - - - - - - - - - - - - - - - - - - - - - - (End of report) YOGESH ROMERO MD [facility] Date Apr 05, 2024 - - - - - - - - - - - - - - - - - - - - - - - - - - - - - - - - - - - - - - - - TERRY MARTINEZ JR STANDARD FORM 515 ID:[id number] SEX:M :1945 AGE: 79 LOC:PATH PCP: Nicholas Jeter /aram Romero MD Pathologist Signed: 04/05/2024 16:13 YOGESH ROMERO-D [facility] Encounter Notes: All associated encounter notes This section contains the clinical notes associated to the Encounter. Date/Time Encounter Note(s) Provider Source Apr 22, 2024 09:34 AM ADMINISTRATIVE NOT E: LOCAL TITLE: CLERICAL/ADMIN NOTE STANDARD TITLE: ADMINISTRATIVE NOTE DATE OF NOTE: APR 22, 2024@09:34 ENTRY DATE: APR 22, 2024@09:34:45 AUTHOR: YISEL LOPES EXP COSIGNER: URGENCY: STATUS: COMPLETED pt came in req. tdap vacc. sched walk in /es/ [facility]opes [facility] Signed: 04/22/2024 09:35 YISEL LOPES-GRACE [facility]
--- OUTSIDE RECORDS SUMMARY | 2025-01-28 10:46 | XMS_ITS | Encounter Summary ---
Author Name [facility] Organization [facility] [place] Address [address] [place] [id number] Care Team Providers Care Washing Machine Loader Name Role Phone NICHOLAS LEVIN Primary Care [...] STEVENS EXPRE SS LINES Oct 09, 2020 [id number] [phone] CARLO MARTINEZ PATIENT [facility] POINT OF SERVICE [id number] 15 Oct 09, 2011 [id number] [phone] CARLO MARTINEZ PATIENT [facility] POINT [facility] SERVICE STEVENS EXPRE SS LINES Oct 09, 2020 [id number] [phone] CARLO MARTINEZ PATIENT [facility] PRESCRIPT ION NONE Oct 09, 2011 [id number] TERRY MARTINEZ JR PATIENT [facility] PRESCRIPT ION ([id number] 07/10 [id number]) Oct 09, 2011 NONE [id number] [phone] TERRY MARTINEZ JR PATIENT [facility] ([id number]) PRESCRIPT ION STEVENS EXPRE SS Oct 09, 2020 [id number] CARLO MARTINEZ PATIENT [facility] POINT OF SERVICE STEVENS EXPRE SS LINES Oct 09, 2011 [id number] [phone] CARLO MARTINEZ PATIENT MEDICARE (WNR) MEDICARE (M) PART A Jan 08, 2012 PART A [id number] TERRY MARTINEZ JR PATIENT [facility] Oct 09, 2011 [id number] [phone] CARLO MARTINEZ PATIENT Selected Encounter This section includes the information on record at [place] for the Encounter. Date/Time Encounter Type Encounter Description Reason Provider Source Jan 09, 2025 10:00 AM OFFICE O/P EST MOD 30 MIN PRIMARY CARE/MEDICINE ICD-10-CM R05.3 Chronic cough NICHOLAS LEVIN Norma Encounter Template Text not used by [place] Assessments - Encounter Diagnoses This section includes the primary and secondary diagnoses documented for the Encounter. Date/Time Primary/Secondary Diagnosis Diagnosis Name Provider Source Jan 09, 2025 10:35 AM PRIMARY Chronic cough NICHOLAS LEVIN [facility] Jan 09, 2025 10:35 AM SECONDARY Dysphagia, unspecified NICHOLAS ELVIN [facility] Jan 09, 2025 10:35 AM SECONDARY Essential (primary) hypertension NICHOLAS LEVIN [facility] Jan 09, 2025 10:35 AM SECONDARY Type 2 diabetes mellitus without complications NICHOLAS LEVIN [facility] Plan of Treatment: Future Appointments (+ 6 months) and Future Tests (+/- 45 days) The Plan of Treatment section includes future care activities for the patient from all [place] [facility]. This section includes future appointments and future orders which are active, pending or scheduled. Future Appointments This section includes appointments that were scheduled to occur 6 months from the date of the Encounter, up to a maximum of 20 appointments. The data comes from all [place] treatment facilities. Appointment Date/Time Appointment Type Appointme nt Facility Name Jan 23, 2025 01:15 PM AMBULATORY - NONE [place] [facility] Jan 28, 2025 11:00 AM AMBULATORY - NONE [place] [facility] Jan 28, 2025 02:00 PM AMBULATORY - REHAB MEDICIN E [facility] Mar 28, 2025 10:40 [facility] Apr 02, 2025 09:00 [facility] Active, Pending, and Scheduled Orders This section includes a listing of several types of active, pending, and scheduled orders, including clinic medications orders, diagnostic test orders, procedure orders and consult orders; where the start date of the order is 45 days before the date of the Encounter or 45 days after the date of theEncounter. The data comes from all [place] treatment facilities. Test Date/Time Test Type Test Details Facility Name Jan 09, 2025 12:00 AM Imaging - General Radiology Order ESOPHAGUS RAPID (MODIFIED BS) [facility] Jan 09, 2025 10:38 AM Consult Order SURGERY QUINN ND OUTPATIENT Cons Biostatistics Director's Choice [facility] Jan 09, 2025 10:38 AM Consult Order OT OUTPATI ENT CDD Cons Biostatistics Director's Choice [facility] Jan 09, 2025 10:38 AM Consult Order COMMUNITY HPED-UPQLIHV-LXKEECWH BARIUM SWALLOW Cons Biostatistics Director's [facility] Lab Results: +/- 30 days of the [...] Type Comment Jan 09, 2025 10:15 AM [facility] N ANTI-CCP (SRL) SERUM Specimen Type: SERUM No comment entered. Ordering Provider: NICHOLAS LEVIN Report Released Date/Time: Jan 09, 2025 10:07 AM Reporting Lab: [address] [address] Performing Lab: [address] [address] ANTI-CCP (SRL) <0.5 0.5-2.9 Jan 09, 2025 10:15 AM [facility] ANTI-NUCLEAR Ab SERUM Specime n Type: SERUM No comment entered. Ordering Provider: NICHOLAS LEVIN Report Released Date/Time: Jan 09, 2025 10:07 AM Reporting Lab: [address] [address] Performing Lab: [address] [address] ANTI-NUCLEAR Ab <1:80 <1:80 Jan 09, 2025 10:15 AM [facility] RHEUMATOID FACTOR SERUM Speci men Type: SERUM No comment entered. Ordering Provider: NICHOLAS LEVIN Report Released Date/Time: Jan 09, 2025 10:07 AM Reporting Lab: [address] [address] Performing Lab: [address] [address] RHEUMATOID FACTOR <8 NEGATIVE [IU]/mL <8 NEGATIVE Jan 09, 2025 10:15 AM [facility] TSH PLASMA Specimen Type: PLASM A [...] Jan 09, 2025 10:07 AM Reporting Lab: [address] [address] Performing Lab: [address] [address] TSH 1.6243 m[IU]/mL 0.3500-4.9400 Jan 09, 2025 10:15 AM [facility] LIPID PROFILE PLASMA Specimen Type: PLASM [...] <15 G5 Kidney failure Ordering Provider: NICHOLAS ELVIN Report Released Date/Time: Jan 09, 2025 10:07 AM Reporting Lab: [address] [address] Performing Lab: [address] [address] CHOLESTEROL 115 mg/dL 0-199 TRIGLYCERIDE 261 mg/dL H 0-149 HDL CHOLESTEROL 26 mg/dL L 40-69 DIRECT LDL CHOL. 44 mg/dL 0-100 Jan 09, 2025 10:15 AM [facility] GLYCOHEMOGLOBIN BLOOD Specimen Type: BLOOD Comment: [facility] guidelines for A1c interpretation: Glycemic control targets are based on Shared Decision Making between clinicians and patients. Criteria used to establish an A1c target recommendation can be found at https://www.[place].gov/qualityandpatientsafety/ and include the use of result accuracy [...] 8.73 and 9.27. Ref: https://ngsp.org/CAPdata.asp. The in-house [employer]-Spectral Image D-100 analyzer has a historical CV <= 2%. Contact the laboratory for further performance characteristics of this assay. Ordering Provider: NICHOLAS LEVIN Report Released Date/Time: Jan 09, 2025 10:07 AM Reporting Lab: [address] [address] Performing Lab: [facility] [address] [address] GLYCOHEMOGLOBIN 5.3 4.4-5.6 Jan 09, 2025 10:15 AM [facility] CRP (for acute inflammation) PLASMA Specimen T [...] Jan 09, 2025 10:07 AM Reporting Lab: [place] [address] Performing Lab: [place] [address] CRP (for acute inflammation) 1.0 mg/L 0. 0-5.0 Jan 09, 2025 10:15 AM [facility] SED RATE (ISED) BLOOD Specime n Type: BLOOD No comment entered. Ordering Provider: NICHOLAS LEVIN Report Released Date/Time: Jan 09, 2025 10:07 AM Reporting Lab: [place] [address] Performing Lab: [place] [address] SED RATE (ISED) 3 mm/h 0-20 Jan 09, 2025 10:15 AM [facility] CBC/PLT BLOOD Specimen Type: BLOOD No comment entered. Ordering Provider: NICHOLAS LEVIN Report Released Date/Time: Jan 09, 2025 10:07 AM Reporting Lab: [address] Performing Lab: [place] [address] WBC 7.0 10*3/uL 5.0-10.0 RBC 4.50 10*6/uL L 4.6-6.2 HGB 14.0 g/dL 14.0-18.0 HCT 41.3 L 42.0-52.0 MCV 91.8 fL 80.0-94.0 MCH 31.1 pg H 27.0-31.0 MCHC 33.9 g/dL 32.0-36.0 PLT 240 10*3/uL 150-450 MPV 9.1 fL 9.0-13.1 RDW 12.3 11.0-16.0 NRBC 0.0 0.0-0.0 Jan 09, 2025 10:15 AM [facility] PANEL 5 PLASMA Specimen Type: PLASM [...] Jan 09, 2025 10:07 AM Reporting Lab: [address] [address] Performing Lab: [address] [address] CREATININE 0.94 mg/dL 0.72-1.25 UREA NITROGEN 20 [...] 133/73 16 97 0 70 189 27 [place] [facility] Social History: Smoking Status (Most current) and Tobacco Use (All prior to encounter date) This section includes the most current, and the historical, smoking and tobacco- related health factors from the [place] facility where the Encounter took place. Current Smoking Status This section includes the most current smoking, or tobacco-related health factor, from the [place] facility where the Encounter took place. Date/Time Current Smoking Status Comment Colby corado Jan 09, 2025 10:00 AM VA-TOBACCO NEVER U SED OTHER TYPE [facility] Tobacco Use History This section includes a history of the smoking, or tobacco-related health factors, that were collected on or before the date of the Encounter. The data comes from the [place] facility where the Encounter took place. Date/Time Smoking Status/Tobacco Use Comment Mouna roman Jan 09, 2025 10:00 AM VA-TOBACCO USE FOR NAVI CIGARETTES [facility] February 07, 2024 02:30 PM VA-TOBACCO NEVER USED [facility] Jun 16, 2022 01:00 PM VA-TOBACCO FORMER USER [facility] Jun 16, 2022 01:00 PM VA-TOBACCO QUIT 15 YRS OR MORE [facility] Jun 09, 2021 09:30 AM VA-TOBACCO FORMER USER [facility] Jun 09, 2021 09:30 AM VA-TOBACCO QUIT 15 YRS OR MORE [facility] Jul 06, 2020 08:30 AM VA-TOBACCO FORMER USER [facility] Jul 06, 2020 08:30 AM VA-TOBACCO QUIT 15 YRS OR MORE [facility] Jun 11, 2019 01:24 PM VA-TOBACCO NEVER USED [facility] Aug 01, 2018 07:43 AM VA-TOBACCO FORMER USER [facility] Aug 01, 2018 07:43 AM VA-TOBACCO QUIT 15 YRS OR MORE [facility] Jun 27, 2017 08:56 AM V9 LIFETIME NON-USER OF TOBACCO [facility] Aug 08, 2016 10:07 AM V9 LIFETIME NON-USER OF TOBACCO [facility] Sep 07, 2015 08:51 AM V9 QUIT TOBACCO >7 YEARS AGO [facility] May 31, 2013 09:51 AM V9 QUIT TOBACCO >7 YEARS AGO [facility] May 31, 2013 09:51 AM V9 TOBACCO OFFERED [facility] Radiology Reports: +/- 30 days of [...] the Encounter. The data comes from [facility] facilities. Date/Time Radiology Report Provider Source Jan 09, 2025 10:27 AM CHEST TWO(2) VIEW PA&LAT: MICHELLESTEVENSON [id number] -1945 M Exm Date: JAN 09, 2025@10:27 Req Phys: NICHOLAS LEVIN Loc: [place] PACT GOLF 1-2 (Req'g Loc) [facility] Loc: [facility] RADIOLOGY Service: [place] [address] (Case [id number] COMPLETE)CHEST TWO(2) VIEW PA&LAT (RAD Detailed) CPT:27746 Reason for Study: CHRONIC COUGH Clinical History: Report Status: Verified Date Reported: JAN 09, 2025 Date Verified: JAN 09, 2025 Syrup Mixer Assistant E-Sig: Report: Comparison: February 02, 2022 Findings: Two views of the chest were obtained. Lungs are free of infiltrates. Heart size is normal. No pneumothorax or pleural effusions are seen. 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 Impression: 1. No acute disease Primary Diagnostic Code: NO ALERT REQUIRED Primary Interpreting Staff: SINTIA IBARRA, Staff Physician Verified by office technician for SINTIA IBARRA /SINTIA RUIZ [facility] Jan 09, 2025 10:27 AM HAND-RIGHT 3 OR MORE VIEWS: TERRY MARTINEZ JR [id number] -1945 M Exm Date: JAN 09, 2025@10:27 Req Phys: NICHOLAS LEVIN Pat Loc: [place] PACT GOLF 1-2 (Req'g Loc) Img Loc: [facility] RADIOLOGY Service: [place] [address] (Case [id number] COMPLETE)HAND-RIGHT 3 OR MORE VIEWS (RAD Detailed) CPT:38419 Reason for Study: BILATERAL HAND PAIN Clinical History: UPDATING PLAIN FILMS FOR HAND CONSULT Report Status: Verified Date Reported: JAN 10, 2025 Date Verified: JAN 10, 2025 Syrup Mixer Assistant E-Sig: Report: HAND-RIGHT 3 OR MORE VIEWS, HAND-LEFT 3 OR MORE VIEWS, 01/09/2025 10:39 AM EDT INDICATION: BILATERAL HAND PAIN COMPARISON: February 07, 2024 Impression: No acute fracture or malalignment. 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 Primary Diagnostic Code: NO ALERT REQUIRED Primary Interpreting Staff: MARC BRAND, Staff Physician Verified by office technician for MARC BRAND /MARC GENAO [facility] Jan 09, 2025 10:27 AM HAND-LEFT 3 OR MORE VIEWS: TERRY MARTINEZ JR [id number] -1945 M Exm Date: JAN 09, 2025@10:27 Req Phys: NICHOLAS LEVIN Pat Loc: [facility] PACT [facility]OL[facility] 1-2 (Req'g Loc) Img Loc: [facility] RADIOLOGY Service: [place] [address] (Case [id number] COMPLETE)HAND-LEFT 3 OR MORE VIEWS (RAD Detailed) CPT:13205 Reason for Study: BILATERAL HAND PAIN Clinical History: UPDATING PLAIN FILMS FOR HAND CONSULT Report Status: Verified Date Reported: JAN 10, 2025 Date Verified: JAN 10, 2025 Syrup Mixer Assistant E-Sig: Report: HAND-RIGHT 3 OR MORE VIEWS, HAND-LEFT 3 OR MORE VIEWS, 01/09/2025 10:39 AM EDT INDICATION: BILATERAL HAND PAIN COMPARISON: February 07, 2024 Impression: No acute fracture or malalignment. 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 Primary Diagnostic Code: NO ALERT REQUIRED Primary Interpreting Staff: MARC BRAND, Staff Physician Verified by office technician for MARC BRAND /MARC GENAO [facility] Dec 19, 2024 08:34 AM SHOULDER-LEFT 2 OR MORE VIEWS: TERRY MARTINEZ [id number] -1945 M Exm Date: DEC 19, 2024@08:34 Req Phys: WILBERT WOOD Loc: [facility] ORTHO/SHOULDER/FOLLOWUP CD Img Loc: [facility] RADIOLOGY Service: [place] [address] (Case [id number] COMPLETE)SHOULDER-LEFT 2 OR MORE VIEWS (RAD Detailed) CPT:60232 Reason for Study: s/p surgery Clinical History: Report Status: Verified Date Reported: DEC 20, 2024 Date Verified: DEC 20, 2024 Syrup Mixer Assistant E-Sig: Report: EXAM: LEFT SHOULDER RADIOGRAPHS HISTORY: Status post surgery COMPARISON: 02/21/2024 FINDINGS: Redemonstration of reverse left glenohumeral arthroplasty, 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 No evidence for acute fracture, dislocation or hardware loosening. No lytic or blastic lesion. Moderate acromioclavicular degenerative changes. Soft tissues are unremarkable. Impression: 1. Stable postoperative changes of the left shoulder. READING PHYSICIAN: Prieto Truong M.D. -[phone] 12/20/2024 23:30 EDT [facility] [employer]radiology Program [phone] (For Medical Practitioner Use Only) Attention Patients / Veterans: If you have questions or concerns about these test results, please contact your ordering provider or primary care team. Primary Diagnostic Code: NO ALERT REQUIRED Primary Interpreting Staff: OUTSIDE SERVICE RADIOLOGY, Staff Physician / RADIOLOGY,OUTSIDE SERVICE [facility] Encounter Notes: All associated encounter notes This section contains the clinical notes associated to the Encounter. Date/Time Encounter Note(s) Provider Source Jan 12, 2025 11:53 PM PRIMARY CARE LETTE RS: LOCAL TITLE: PC LETTER TEST RESULTS STANDARD TITLE: PRIMARY CARE LETTERS DATE OF NOTE: JAN 12, 2025@23:53 ENTRY DATE: JAN 12, 2025@23:53:59 AUTHOR: NICHOLAS LEVIN COSIGNER: URGENCY: STATUS: COMPLETED [facility] [address] [place] [address] Mr. STEWARTSTEVENSONEMILIA MARTINEZ [address] [place] [address] Dear Mr. STEWARTSTEVENSONEMILIA MARTINEZ , The x-rays of your hands continue to show xqgwlbnk-bi-cgyksr arthritis. If you have not been successfully contacted to schedule an appointment with [facility], please call Centralized Scheduling at [phone]. I have included the radiology report below for your review and records. Clinical History: UPDATING PLAIN FILMS FOR HAND CONSULT Report Status: Verified Date Reported: JAN 10, 2025 Date Verified: JAN 10, 2025 Syrup Mixer Assistant E-Sig: Report: HAND-RIGHT 3 OR MORE VIEWS, HAND-LEFT 3 OR MORE VIEWS, 01/09/2025 10:39 AM EDT INDICATION: BILATERAL HAND PAIN COMPARISON: February 07, 2024 Impression: No acute fracture or malalignment. 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 If you have any questions please contact Telephone Care at [phone]. If you are enrolled in [employer] you may also contact us by Secure Message. As always, I wish to thank you for your service to our country. Thank you for keeping us the [place] of the [employer] and the home of the [employer] . Please do not ever hesitate to contact our team with any of your needs. Sincerely, /vishnu/ NICHOLAS LEVIN STAFF PHYSICIAN Patient Record Number [id number] NICHOLAS LEVIN [facility] Jan 12, 2025 11:52 PM PRIMARY CARE AURELIA RS: LOCAL TITLE: PC LETTER TEST RESULTS STANDARD TITLE: PRIMARY CARE LETTERS DATE OF NOTE: JAN 12, 2025@23:52 ENTRY DATE: JAN 12, 2025@23:52:19 AUTHOR: NICHOLAS LEVIN EXP COSIGNER: URGENCY: STATUS: COMPLETED [facility] [address] [place] [address] TERRY MARTINEZ [address] [place], [place] [address] JAN 12, 2025 Dear Loli MARTINEZ Your Primary Care Provider has reviewed your recent tests, and wanted us to let you know that everything looked stable. A copy of your test results is attached below. You may notice that some tests are listed as outside normal limits. Your Primary Care Provider has reviewed these results, and has determined these are not considered to be significant. Therefore, they do not require further investigation or treatment. There are no recommended changes in your medications or treatment plan at this time. Please call us if you have questions or problems. You can reach us at (toll free number) or [phone] (local number). If you are enrolled in [employer], and utilize those services, you may prefer to contact us by secure message. Thank you for your service to our Country. We are honored to be able to provide medical care to you. Recent labwork Collection DT Specimen Test Name Result Units Ref Range 01/09/2025 10:15 SERUM ANTI-NUCLEAR Ab <1:80 Ref: <1:80 01/09/2025 10:15 SERUM ANTI-CCP (SRL) <0.5 U/mL 0.5 - 2.9 01/09/2025 10:15 SERUM RHEUMATOID FACTOR<8 NEGATIVE IU/mL Ref: <8 NEGATIVE 01/09/2025 10:15 BLOOD !! GLYCOHEMOGLOBIN 5.3 % 4.4 - 5.6 01/09/2025 10:15 BLOOD SED RATE (ISED) 3 mm/hr 0 - 20 01/09/2025 10:15 BLOOD WBC 7.0 K/cmm 5.0 - 10.0 RBC 4.50 L M/cmm 4.6 - 6.2 HGB 14.0 g/dL 14.0 - 18.0 HCT 41.3 L % 42.0 - 52.0 MCV 91.8 fL 80.0 - 94.0 MCH 31.1 H pg 27.0 - 31.0 MCHC 33.9 g/dL 32.0 - 36.0 RDW 12.3 % 11.0 - 16.0 PLT 240 K/cmm 150 - 450 MPV 9.1 fL 9.0 - 13.1 NRBC 0.0 % 0.0 - 0.0 01/09/2025 10:15 PLASMA!! CRP 1.0 mg/L 0.0 - 5.0 !! CHOLESTEROL 115 mg/dL 0 - 199 !! TRIGLYCERIDE 261 H mg/dL 0 - 149 !! HDL CHOLESTEROL 26 L mg/dL 40 - 69 !! DIRECT LDL CHOL. 44 mg/dL 0 - 100 !! SODIUM 139 mmol/L 136 - 145 !! POTASSIUM 4.4 mmol/L 3.5 - 5.1 !! CHLORIDE 107 mmol/L 98 - 107 !! CO2 25 mmol/L 22 - 29 !! ANION GAP 7.0 mEq/L 3 - 19 !! GLUCOSE 79 mg/dL 74 - 100 !! UREA NITROGEN 20 mg/dL 9 - 25 !! CREATININE 0.94 mg/dL 0.72 - 1.25 !! eGFR (CKD-EPI) 83 SEE EVAL !! CALCIUM 9.2 mg/dL 8.4 - 10.2 !! TOTAL PROTEIN 7.5 g/dL 6.4 - 8.3 !! ALBUMIN 4.2 g/dL 3.5 - 5.2 !! TOTAL BILIRUBIN 0.7 mg/dL 0.2 - 1.2 !! AST 21 U/L 5 - 34 !! ALT 21 U/L 0 - 55 !! ALK PHOS 79 U/L 40 - 150 !! TSH 1.6243 mIU/mL 0.3500 - 4.9400 Sincerely, /vishnu/ NICHOLAS LEVIN STAFF PHYSICIAN Patient Record Number [id number] NICHOLAS LEVIN [facility] Jan 09, 2025 10:36 AM MEDICATION MGT NOT E: LOCAL TITLE: OUTPATIENT ESSENTIAL MEDICATION LIST FOR REVIEW (EM STANDARD TITLE: MEDICATION MGT NOTE DATE OF NOTE: JAN 09, 2025@10:36 ENTRY DATE: JAN 09, 2025@10:36:22 AUTHOR: NICHOLAS LEVIN EXP COSIGNER: URGENCY: STATUS: COMPLETED Review of medications include: Patient allergies (Remote and Local) and active and pending prescriptions dispensed from this [place] (local) and dispensed from another [place] or [facility] facility (remote and pending) as well as local inpatient orders (pending and active) and clinic medications (IMOs), locally documented non-VA medications and local prescriptions that have or been discontinued in the past 90 days. With the exception of Allergies, if a category is not listed below, it means there were no relevant medications for the patient. ALLERGIES: SULFA DRUGS No Remote Allergy/ADR Data available for this patient ACTIVE OUTPATIENT MEDICATIONS LOCAL/REMOTE ATORVASTATIN CALCIUM 40MG TAB Directions: TAKE ONE-HALF TABLET BY MOUTH DAILY FOR CHOLESTEROL -DO NOT DRINK GRAPEFRUIT JUICE WHILE ON THIS DRUG Quantity: 45 for 90 days Issued: 06/19/24 Filled: 12/07/24 Expires: 06/20/25 Refills: 1 Status: ACTIVE KETOCONAZOLE 2% CREAM Directions: APPLY SMALL AMOUNT TO AFFECTED AREA TWICE A DAY FOR FUNGAL INFECTION -APPLY TO DRY SCALY AREAS OF FEET UNTIL CLEAR. Quantity: 60 for 30 days Issued: 12/06/24 Filled: 12/06/24 Expires: 12/07/25 Refills: 1 Status: ACTIVE LISINOPRIL 10MG TAB Directions: TAKE ONE-HALF TABLET BY MOUTH DAILY FOR BLOOD PRESSURE/HEART Quantity: 45 for 90 days Issued: 06/19/24 Filled: 12/26/24 Expires: 06/20/25 Refills: 1 Status: ACTIVE LORATADINE 10MG TAB Directions: TAKE ONE TABLET BY MOUTH DAILY FOR ALLERGIES MAY CAUSE DROWSINESS Quantity: 90 for 90 days Issued: 04/15/24 Filled: 01/13/25 Expires: 04/16/25 Refills: 0 Status: ACTIVE THERA-DERM MOISTURIZING LOTION Directions: APPLY SMALL AMOUNT TO AFFECTED AREA NEEDED FOR DRY SKIN Quantity: 240 for 30 days Issued: 12/06/24 Filled: 12/28/24 Expires: 12/07/25 Refills: 10 Status: ACTIVE No remote medications found. PENDING OUTPATIENT MEDICATIONS (LOCAL/REMOTE): No local medications found. No remote medications found. ACTIVE NONVA MEDICATIONS (LOCAL): ASPIRIN 81MG EC TAB Directions: 81MG MOUTH DAILY Status: ACTIVE FISH OIL CAP,ORAL Directions: 1200MG MOUTH EVERY DAY Status: ACTIVE OUTPATIENT MEDICATIONS (LOCAL)WITHIN 90 DAYS: No local medications found. DISCONTINUED OUTPATIENT MEDICATIONS (LOCAL) WITHIN 90 DAYS: DICLOFENAC NA 1% TOP GEL Directions: APPLY 2 GRAM STRIP TO AFFECTED AREA EVERY 6 HOURS NEEDED FOR HAND PAIN Quantity: 100 for 30 days Issued: 02/20/24 Filled: 04/21/24 Expires: 02/20/25 Refills: 0 Status: DISCONTINUED CLINIC MEDICATIONS (LOCAL): No local medications found. /vishnu/ NICHOLAS LEVIN STAFF PHYSICIAN Signed: 01/09/2025 10:36 INCHOLAS LEVIN [facility] Jan 09, 2025 09:58 AM PRIMARY CARE NOTE: LOCAL TITLE: PC PROGRESS NOTE STANDARD TITLE: PRIMARY CARE NOTE DATE OF NOTE: JAN 09, 2025@09:58 ENTRY DATE: JAN 09, 2025@09:58:06 AUTHOR: NICHOLAS LEVIN EXP COSIGNER: URGENCY: STATUS: COMPLETED CHIEF COMPLAINT: ongoing management of active/chronic medical problems LOCAL PHYSICIANS: NONE LOCAL PHARMACIES: NONE HPI/PROBLEM LIST: Chevy presents to clinic today for routine follow up. He presents back to provider's office accompanied by his . Cheyv's primary concern today remains constant throat clearing/tickling nonproductive cough for years. Had previously thought symptoms related to allergies/PND for which we initiated Loratadine/Flonase without any improvement. At last PCP appointment last year 02/2024 had recommended to D/C Lisinopril with concerns for potential ACEI- induced cough. However, seems chevy never did so. Continued to take Rx. Now 1 year later, symptoms persistent and perhaps slightly worsening. Today chevy also describes component of oropharyngeal dysphagia. Food often goign down the wrong way and he has to go to the bathroom to cough/gag up. He denies any dat heartburn. This Hx had not been elucidated previously. Majestic also concerned with worsening bilateral hand pain. Prior Plain Films 02/2024 with advanced arthritic changes. Please see individualized problem list as detailed below. CHRONIC COUGH - Chronic tickling/throat-clearing nonproductive cough for many years now. - Had considered potentially allergy/PND related. Loratadine/Flonase without any improvement. - Had considered potentially ACEI-induced. Had instructed to D/C Lisinopril but misunderstood and never did. Now further information: DYSPHAGIA - Also component of oropharyngeal dysphagia, worsening. Globus sensation. Denies any dat heartburn. PLAN - CXR today - Given further Hx elucidated, highest suspicion is for GI-related process. Rx trial Omeprazole 40mg BID x 6-8 weeks. MBS/Dysphagia Consult placed. - Pending results/response to above will consider D/C ACEI as next step. HTN - Lisinopril 5mg daily - Stable. Asymptomatic. PLAN - Continue for now. If workup as above unfruitful, will D/C Lisinopril for potentially ACEI-Induced cough. HLD WELL CONTROLLED NIDDM T2 WITHOUT COMPLICATIONS - Remote Hx, briefly on oral therapy for only 3-4 months in the distant past. Since diet/lifestyle controlled with A1c in completely normal range. - A1c: 5.1% in 02/2024. - FSBS/HYPOGLYCEMIA: - - GLYCEMIC REGIMEN: NONE - STATIN REGIMEN: Atorvastatin 20mg daily. OTC Fish Oil. - NEUROPATHY: - - NEPHROPATHY: - 02/2024 - RETINOPATHY: - 10/2024. Optometry recall set 10/2025. - PODIATRY: Established. F/U scheduled 03/2025. PLAN - Continue. Hx OF TIA - ASA 81mg daily. Atorvastatin 20mg daily. - Stable. Asymptomatic. PLAN - Continue BPH s/p UROLIFT - s/p Urolift 01/2021. Hx BLADDER CANCER - Diagnosed 12/2015 s/p resection. Completed iBCG / mBCG. - Follows with Urology. Last evaluated 03/2024, cystoscopy/cytology JAQUAN. PLAN - Continue F/U with Urology recall as set 03/2025. 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 Given severity, will complete laboratory evaluation for any suggestion of inflammatory arthropathy. - Avoid PO NSAIDs due to GI symptoms/workup as above. Offered Topical Diclofenac, ineffective in the past. Declines. - OT Consult for comfort devices. - Hand Consult for potential CSI per request. L SHOULDER PAIN L AC OA / BICEPS TENDONITIS / RTC ARTHROPATHY - s/p L reverse TSA 11/2023. - Last evaluated with Ortho 12/2024, released to F/U PRN. PLAN - Continue OTHER CHRONIC MEDICAL CONDITIONS - SEASONAL ALLERGIES / PND: Loratadaine / Flonase. - Hx BCC: Follows with Dermatology. Recall set 05/2025. - CONSTIPATION: Miralax PRN. HEALTH CARE MAINTENANCE: - LDCT: Not Indicated. Quit >15 years ago. - AAA: CT A/P 09/2015 aorta unremarkable. - COLONOSCOPY: 02/2014 HP x1, multiple fragements TA. 09/2020 HP. GI recommending repeat 10yrs due 09/2030. Will need to discuss risks/benefits due to age >75 at that time. - PSA: No longer routinely indicated with age >70. - VACCINES: Influenza: Recommend Annually. Tetanus: Tdap 07/2018 PNA: Pneumovax: 10/2009, 07/2018 Prevnar 13: 08/2015 Prevnar 20: 06/2022 Shingrix: 12/2018. 03/2019. Hep A: 10/2018. 04/2019. COVID: Initially vaccinated . Recommended booster. Declined. RSV: 02/2024. - BLOODWORK: ANNUAL: Updated today 01/2025. HIV: - 05/2013 HCV: - 08/2009 ROS: as above in HPI FAMILY HISTORY No FHx of colon CA. Maternal uncle with prostate CA. SOCIAL HISTORY: SERVICE: [id number]. [place]. 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 HOME/FAMILY: Lives in [place] with his . They have been >50 years. They have 1 daughter. TOBACCO: Smoked when in service. Quit in . ALCOHOL: - ILLICITS: - HOBBIES: Running (picked up later in life, at age 72) Active problems - Computerized Problem List is the source for the followin. Exposure to potentially hazardous substance ([facility] [id number]) 2. Brow ptosis 3. Chronic rhinitis 4. Mixed hyperlipidemia 5. Carcinoma of bladder 6. Transient ischemic attack 7. Gastroesophageal reflux disease 8. Benign essential hypertension 9. Type 2 diabetes mellitus without complication 10. Benign polyp of colon HP polyps resected Sep 2020 -- repeat in 10 years (2029). 11. Transient global amnesia (SNOMED CT [id number]) 12. Diabetes Mellitus without mention of Complication, type II or unspecified ty 13. Hyperlipidemia 14. Essential Hypertension 15. Transient Ischemic Attack * MEDICATIONS: Medicine/Supplies Qty Last Filled 1) LORATADINE 10MG TAB: TAKE ONE TABLET BY MOUTH 90 JAN 13, 2025 DAILY FOR ALLERGIES MAY CAUSE DROWSINESS 2) ATORVASTATIN CALCIUM 40MG TAB: TAKE ONE-HALF 45 DEC 07, 2024 TABLET BY MOUTH DAILY FOR CHOLESTEROL -DO NOT DRINK 3) LISINOPRIL 10MG TAB: TAKE ONE-HALF TABLET BY MOUTH 45 DEC 26, 2024 DAILY FOR BLOOD PRESSURE/HEART 4) KETOCONAZOLE 2% CREAM: APPLY SMALL AMOUNT TO 60 DEC 06, 2024 AFFECTED AREA TWICE A DAY FOR FUNGAL INFECTION 5) THERA-DERM MOISTURIZING LOTION: APPLY SMALL AMOUNT 240 DEC 28, 2024 TO AFFECTED AREA NEEDED FOR DRY SKIN ALLERGIES: SULFA DRUGS VITALS: 01/09/25 09:34 T: 97.7 F (36.5 C) (ORAL) P: 71 (RADIAL) R: 16 (SPONTANEOUS) B/P: 133/73 Ht: 70.00 in (177.80 cm) Wt: 189.00 lb (85.73 kg) Body Mass Index: 27 Pulse Oximetry: 97% Pain: 0 - No pain PHYSICAL EXAM: MOBILITY: ambulating steadily without assistive device. GENERAL APPEARANCE: well groomed. NAD. EYES: no external abnormalities of lids/conjunctiva. pupils appear symmetric. ENT: no external abnormalities of ears/nose/mouth. constant throat-clearing throughout visit. RESP: nonlabored on room air. clear to auscultation in all nicholson. CV: RRR. no m/r/g appreciated. no peripheral edema. GI: soft. nondistended. nontender. MSK: bilateral hand with visible enlargement of 1st/2nd MCPs. No bogginess or specific point tenderness/laxity noted. SKIN: warm and dry. no obvious lesions of visible skin. NEURO: CN II-XII grossly intact. sensation apparently intact. moving all extremities spontaneously. no focal deficits appreciated. PSYCH: Appropriate mood and behavior. Interacting appropriately. ASSESSMENT AND PLAN: Chronic cough Dysphagia, unspecified Essential (Primary) Hypertension Type 2 Diabetes Mellitus without Complications Treatment plan was reviewed with /Caregiver as detailed above and all questions addressed. Majestic/Caregiver voiced understanding. Majestic/Caregiver is recommended to contact Telephone Care / PACT Team if they have not heard about test results or scheduling any tests/consult appointments within 2 weeks. The Outpatient Essential Medication List for review (EMLR) was reviewed with /Caregiver. Discrepancies were corrected or sent to the ordering provider to correct. EMLR document was entered into [employer]. Copy of updated reconciled medication list was offered to Majestic/Caregiver. RTC: 11 months SYSTEM GENERATED CLINICAL REMINDERS: STEPHANIE-DM HbA1c not done: Glycohemoglobin (HgbA1c) ordered /vishnu/ NICHOLAS LEVIN STAFF PHYSICIAN Signed: 01/09/2025 10:36 NICHOLAS LEVIN [facility] Jan 09, 2025 09:35 AM PRIMARY CARE NURSI NG NOTE: LOCAL TITLE: [employer] Health Tech/marketing strategist Note STANDARD TITLE: PRIMARY CARE NURSING NOTE DATE OF NOTE: JAN 09, 2025@09:35 ENTRY DATE: JAN 09, 2025@09:35:14 AUTHOR: TWILA STEARNS EXP COSIGNER: URGENCY: STATUS: COMPLETED Alcohol Use Screen (AUDIT-C): Alcohol Screen: SCREEN FOR ALCOHOL (AUDIT-C) An alcohol screening test (AUDIT-C) was negative (score=0). 1. How often did you have a drink containing alcohol in the past year? Consider a drink to be a 12 ounce can or bottle of regular beer, 8 ounces of malt liquor, a 5 ounce glass of table wine, or a 1.5 ounce shot of liquor (like scotch, gin, or vodka). Never 2. How many drinks containing alcohol did you have on a typical day when you were drinking in the past year? Response not required due to responses to other questions. 3. How often did you have six or more drinks on one occasion in the past year? Response not required due to responses to other questions. Depression Screening: Perform PHQ-2 A PHQ-2 screen was performed. The score was 0 which is a negative screen for depression. Over the past two weeks, how often have you been bothered by the following problems? 1. Little interest or pleasure in doing things Not at all 2. Feeling down, depressed, or hopeless Not at all Sexual Orientation: The patient thinks of their sexual orientation as: Straight or Heterosexual Learning Readiness Assessment: Preferred language for discussing health care Kiswahili CONCUR WITH PREVIOUSLY DOCUMENTED ASSESSMENT RESPONSE ADL/IADL Functional Measures(V9): Incontinence Screen: Within the past 12 months, has the patient had any characteristics of incontinence (ability, voiding, leakage, etc.)? No incontinence. Falls Screen: Patient does not report falls within the past 12 months. Dementia Warning Signs: Please indicate below whether the patient or caregiver report any warning signs of Dementia? No warning signs of dementia noted. Card Index of [place] in Activities of Daily Living: CARD INDEX FOR ADL ASSESSMENT: CARD Index of [place] in Activities of Daily Living was completed at this encounter. BATHING: Patient needs no supervision, direction or personal assistance with bathing. DRESSING: Patient needs no supervision, direction or personal assistance with dressing. TOILETING: Patient needs no supervision, direction or personal assistance with toileting. TRANSFERRING: Patient needs no supervision, direction or personal assistance with transferring. CONTINENCE: Patient needs no supervision, direction or personal assistance with bowel continence. FEEDING: Patient needs no supervision, direction or personal assistance with feeding/eating. ENTER TOTAL SCORE BELOW: TOTAL POINTS: = [ 6 ] NOTE: 6-5 = FULL FUNCTION (patient independent) INSTRUMENTAL ACTIVITIES OF DAILY LIVING (IADL) SCALE (Rosanne) Telephone: 1 point - Looks up numbers, dials, receives and makes calls without help Shoppin point - Takes care of all shopping needs independently Food preparation: 1 point - Plans, prepares, and serves adequate meals independently Housekeepin point - Maintains house alone or with occasional assistance (e.g., heavy work domestic help ) Laundry: 1 point - Able to do personal laundry completely. Mode of transportation: 1 point - Travels independently on public transportation or drives own car Responsibility for own medications: 1 point - Is responsible for taking medication in correct dosages at correct time Ability to handle finances: 1 point - Manages financial matters independently (budgets, writes checks, pays rent and bills, goes to bank), collects and keeps track of income SCORING: The total score may range from 0 - 8. A lower score indicates a higher level of dependence. Total score: 8 points Tobacco Use Screening: The patient is a former cigarette smoker. Quit smoking GREATER THAN OR EQUAL to 15 years. The patient has never used other types of tobacco. /vishnu/ Twila Stearns LPN STAFF SILVIA Signed: 01/09/2025 09:37 TWILA STEARNS [facility]
--- OUTSIDE RECORDS SUMMARY | 2025-01-28 10:46 | XMS_ITS | Continuity of Care Document ---
Author Name [facility] Organization [facility] Care Team Providers Care Dry Boss Name Role Phone [facility] Unavailable Unavailable Problems Combined list of problems from Department of Defense and Veterans Affairs facilities. It does not include entries that were removed or entered in error. Problem Status Onset Date Problem Type Date of Resolution Comments Source Benign essential hypertension Active Condition [place] [facility] Benign polyp of colon Active Condition Oct 19, 2020 Entered By: SONYA YADAV Comment: HP polyps resected Sep 2020 -- repeat in 10 years (2029). [place] [facility]osis [facility] Carcinoma of bladder Active Condition [place] [facility] Chronic rhinitis Active Condition [place] [facility] Diabetes Mellitus without mention of Complication, type II or unspecified type, Active Condition [facility] Essential Hypertension (ICD-9-CM 401.9) [facility] Exposure to potentially hazardous substance ([facility] [id number]) [facility] Gastroesophageal reflux disease Active Condition [facility] Hyperlipidemia Active [place] [facility] Mixed hyperlipidemia Active Condition [place] [facility] Transient global amnesia (SNOMED CT [id number]) Active Condition [facility] Transient ischemic attack Active Condition [place] [facility] Transient Ischemic Attack * (ICD-9-CM 435.9) Active [facility] Type 2 diabetes mellitus without complication Active Condition [facility] Diagnosis: ICD-10-CM Z46.1 Encounter for fitting and adjustment of hearing aid Active Diagnosis [place] [facility] Diagnosis: ICD-10-CM E11.40 Type 2 diabetes mellitus with diabetic neuropathy, unsp Active Diagnosis [place] [facility] [facility] Diagnosis: ICD-10-CM R05.3 Chronic cough Active Diagnosis [place] [facility] Diagnosis: ICD-10-CM Z96.612 Presence of left artificial shoulder joint Active Diagnosis [facility] Diagnosis: ICD-10-CM L57.0 Actinic keratosis Active Diagnosis [facility] Diagnosis: ICD-10-CM G60.9 Hereditary and idiopathic neuropathy, unspecified Active Diagnosis [facility] Diagnosis: ICD-10-CM E11.9 Type 2 diabetes mellitus without complications Active Diagnosis [facility] Diagnosis: ICD-10-CM Z23 Encounter for immunization Active Diagnosis [facility] Diagnosis: ICD-10-CM B35.1 Tinea unguium Active Diagnosis [facility] Diagnosis: ICD-10-CM Z71.89 Other specified counseling [facility] Diagnosis: ICD-10-CM D48.5 Neoplasm of uncertain behavior of skin Active Diagnosis [facility] Diagnosis: ICD-10-CM Z85.51 Personal history of malignant neoplasm of bladder Active Diagnosis [facility] Diagnosis: ICD-10-CM M25.512 Pain in left shoulder Active Diagnosis [facility] Diagnosis: ICD-10-CM I10 Essential (primary) hypertension Active Diagnosis [facility] Diagnosis: ICD-10-CM Z51.81 Encounter for therapeutic drug level monitoring [facility] Diagnosis: ICD-10-CM Z98.890 Other specified postprocedural states Active Diagnosis [facility] Diagnosis: ICD-10-CM R53.1 Weakness Active Diagnosis [facility] Admit Reason: L total shoulder arthroplasty Active Diagnosis [facility] Diagnosis: ICD-10-CM Z71.81 Spiritual or spiritism counseling Active Diagnosis [facility] [place] Diagnosis: ICD-10-CM G89.18 Other acute postprocedural pain Active [facility] Diagnosis: ICD-10-CM Z01.818 Encounter for other preprocedural examination Active Diagnosis [facility] Diagnosis: ICD-10-CM J01.90 Acute sinusitis, unspecified Active Diagnosis [facility] Diagnosis: ICD-10-CM Z01.810 Encounter for preprocedural cardiovascular examination Active Diagnosis [place] [facility] Medications Combined list of outpatient medications from Department of Defense and Veterans Affairs facilities.Medications provided include 1) outpatient medications from the last 15 months, and 2) patient-reported medications. Medication Details Route Status Patient Instructions Prescription Expires Prescription Number Last Dispense Date Ordering Provider Order Date Order Qty Source ACETAMINOPH EN 325MG TAB TAKE TWO TABLETS BY MOUTH EVERY 6 HOURS NEEDED FOR PAIN -DO NOT TAKE MORE THAN 12 TABLETS PER DAY ORAL 01/01/2024 [id number] TRACI LUIS 2023 50 [place] ASPIRIN 81MG TAB,EC TAKE ONE TABLET BY MOUTH DAILY ORAL ACTIVE CHRISTI LINDER 2016 [place] [facility] ATORVASTATI N [place] 40MG TAB TAKE ONE-HALF TABLET BY MOUTH DAILY FOR CHOLESTE ROL -DO NOT DRINK GRAPEFRU IT JUICE WHILE ON THIS DRUG ORAL ACTIVE 06/20/2025 [id number] NICHOLAS LEVIN 2023 45 [place] [facility] ATORVASTATI N [place] 40MG TAB TAKE ONE-HALF TABLET BY MOUTH DAILY FOR CHOLESTE ROL -DO NOT DRINK GRAPEFRU IT JUICE WHILE ON THIS DRUG ORAL DISCONT INUED 04/04/2024 [id number] NICHOLAS LEVIN 2022 45 [place] [facility] CALCIPOTRIE NE 0.005% CREAM,TOP APPLY SMALL AMOUNT TO AFFECTED AREA TWICE A DAY FOR SKIN CARE -APPLY TO LEFT SHOULDER BIOPSY AREA. APPLY MORNING AND EVENING FOR 5 DAYS. TO BE USED WITH FLUOROUR ACIL CREAM -APPLY TO LEFT SHOULDER BIOPSY AREA. APPLY MORNING AND EVENING FOR 5 DAYS. TO BE USED WITH FLUOROUR ACIL CREAM NAVDEEP Rubalcava 06/15/2024 [id number] Vi [place] 2023 60 [place] [facility] DEXTROMETHO RPHAN HBR 10MG/GUAIFE NESIN 100MG/5ML (AF & SF) LIQUID TAKE 10ML BY MOUTH FOUR TIMES A DAY FOR COUGH ORAL DISCONT INUED 12/20/2023 [id number] GIA HURT TTHEW E 2023 120 [place] [facility] DEXTROMETHO RPHAN HBR 10MG/GUAIFE NESIN 100MG/5ML (AF & SF) LIQUID TAKE 10ML BY MOUTH FOUR TIMES A DAY FOR COUGH ORAL 12/24/2023 [id number] NICHOLAS LEVIN 2023 120 [place] [facility] DICLOFENAC NA 1% GEL,TOP APPLY 2 GRAM STRIP TO AFFECTED AREA EVERY 6 HOURS NEEDED FOR HAND PAIN TOPICA L ACTIVE 02/20/2025 [id number] JONO BASS KAMILA 2023 100 [place] [facility] DIPHTH,PERT USS(ACELL), TET (Tdap) VACCINE (ADACEL) 0.5ML SYR INJECT 1 DOSE (0.5ML) INTO THE MUSCLE DIRECTED ONCE FOR VACCINAT ION GIVE IN CLINIC INTRAM USCULA R 05/22/2024 [id number] EULOGIO CALDWELL SALLY 2023 1 [place] [facility] DOCUSATE NA 50MG/SENNOS IDES 8.6MG TAB TAKE 1 TABLET BY MOUTH TWICE A DAY FOR CONSTIPA TION ORAL 01/01/2024 [id number] 4 TRACI LUIS 2023 28 [place] [facility] DOXYCYCLINE HYCLATE 100MG TAB TAKE ONE TABLET BY MOUTH TWICE A DAY FOR SINUS INFECTIO N ORAL 12/20/2023 [id number] GIA HURT TTJOSEFINAW E 2023 20 [place] [facility] FISH OIL CAP,ORAL TAKE 1200MG BY MOUTH QD ORAL ACTIVE CHRISTI LINDER 2013 [place] [facility] FLUOROURACI L 5% CREAM,TOP APPLY SMALL AMOUNT TO AFFECTED AREA TWICE A DAY FOR SKIN CARE -APPLY TO LEFT SHOULDER BIOPSY AREA. APPLY MORNING AND EVENING FOR 14 DAYS. TO BE USED WITH CALCIPOT RIENE CREAM -APPLY TO LEFT SHOULDER BIOPSY AREA. APPLY MORNING AND EVENING FOR 14 DAYS. TO BE USED WITH CALCIPOT RIENE CREAM TOPICA L 06/15/2024 [id number] iV [place] RETCHEN B 2023 40 [place] [facility] FLUTICASONE PROPIONATE 50MCG/SPRAY SOLN,NASAL, 16GM USE 1 SPRAY IN EACH NOSTRIL DAILY FOR NASAL ALLERGY NASAL 04/04/2024 [id number] NICHOLAS LEVIN 2022 3 [place] [facility] GABAPENTIN 100MG CAP TAKE ONE CAPSULE BY MOUTH EVERY 8 HOURS FOR NERVE PAIN ORAL 01/01/2024 [id number] 4 TRACI LUIS CLUADETTE 2023 42 [place] [facility] IBUPROFEN 800MG TAB TAKE ONE TABLET BY MOUTH EVERY 6 HOURS NEEDED FOR PAIN OR INFLAMMA TION -TAKE WITH FOOD OR MILK ORAL 01/01/2024 [id number] 4 TRACI LUIS CLAUDETTE 2023 50 [place] [facility] KETOCONAZOL E 2% CREAM,TOP APPLY SMALL AMOUNT TO AFFECTED AREA TWICE A DAY FOR FUNGAL INFECTIO N -APPLY TO DRY SCALY AREAS OF FEET UNTIL CLEAR. TOPICA L ACTIVE 12/07/2025 [id number] Vi [place] RETCHEN B 2024 60 [place] [facility] LANOLIN/MIN ERAL OIL,UNSCENT ED LOTION,TOP APPLY SMALL AMOUNT TO AFFECTED AREA NEEDED FOR DRY SKIN TOPICA L ACTIVE 12/07/2025 [id number] Vi [place] RETCHEN B 2024 240 [place] [facility] LISINOPRIL 10MG TAB TAKE ONE-HALF TABLET BY MOUTH DAILY FOR BLOOD PRESSURE /HEART ORAL ACTIVE 06/20/2025 [id number] NICHOLAS LEVNI 2023 45 [place] [facility] LISINOPRIL 10MG TAB TAKE ONE-HALF TABLET BY MOUTH DAILY FOR BLOOD PRESSURE /HEART ORAL DISCONT INUED 04/04/2024 [id number] POONAMNICHOLAS ROBB 2022 45 [place] [facility] LORATADINE 10MG TAB TAKE ONE TABLET BY MOUTH DAILY FOR ALLERGIE S MAY CAUSE DROWSINE SS ORAL ACTIVE 04/16/2025 [id number] POONAMNICHOLAS ROBB 2023 90 [place] [facility] LORATADINE 10MG TAB TAKE ONE TABLET BY MOUTH DAILY FOR ALLERGIE S MAY CAUSE DROWSINE SS ORAL DISCONT INUED 04/04/2024 [id number] POONAMNICHOLAS ROBB 2022 90 [place] [facility] METHOCARBAM OL 750MG TAB TAKE ONE TABLET BY MOUTH EVERY 6 HOURS NEEDED FOR MUSCLE SPASM ORAL 01/01/2024 [id number] TRACI LUIS 2023 30 [place] [facility] MUPIROCIN 2% OINT,TOP APPLY SMALL AMOUNT TO NARES TO AFFECTED AREA TWICE A DAY FOR SKIN INFECTIO N APPLY FOR 3 DAYS LEADING UP TO SURGERY 12/01/23 TOPICA L 12/28/2023 [id number] SHAHID PHELPS 2023 22 [place] [facility] OMEPRAZOLE 20MG CAP,EC TAKE TWO CAPSULES BY MOUTH TWICE A DAY FOR STOMACH -TAKE ON AN EMPTY STOMACH ORAL ACTIVE 01/10/2026 [id number] 5 POONAMNICHOLAS ROBB 2024 240 [place] [facility] ONDAN[facility]RON HCL 8MG TAB TAKE ONE-HALF TABLET BY MOUTH EVERY 8 HOURS NEEDED FOR NAUSEA/V OMITING ORAL 01/01/2024 [id number] TRACI LUIS 2023 14 [place] [facility] OXYCODONE HCL 5MG TAB TAKE ONE TABLET BY MOUTH EVERY 6 HOURS NEEDED FOR SEVERE PAIN ORAL 01/01/2024 [id number] TRACI LUIS 2023 30 [place] [facility] Allergies, Adverse Reactions, Alerts Combined list of allergies from Department of Defense and Veterans Affairs facilities. It does not include entries that were removed or entered in error. Substance Category Reaction Severity Reaction type Status Date Reported Comments Source SULFA DRUGS Propensity to adverse reactions to drug (finding) Urticaria active 3 [facility] Immunizations Combined list of available immunizations from the Department of Defense and Veterans Affairs facilities. Immunization Series Date Given Administered By Site Reaction Lot Number CVX Code Drug Professional Nursing Assistant Status Comments Source COVID-19 (MODERNA), MRNA, LNP-S, PF, 50 MCG/0.5 ML (AGES 12+ YEARS) 2023 KARLI SOFIA RIGHT DELTO ID [id number] 312 complet ed [facility] [place] [facility] [place] [facility] INFLUENZA, HIGH-DOSE, TRIVALENT, PF 2023 KARLI SOFIA LEFT DELTO ID [id number] A 135 complet ed [facility] [place] [facility] TDAP 2023 NEYDA FLOYD RIGHT DEL[place] ID [id number] 115 complet ed [facility] [place], [place] [facility] RSV, BIVALENT, PROTEIN SUBUNIT RSVPREF, DILUENT RECONSTITUTED , 0.5 ML, PF 2023 NEYDA FLOYD LEFT DELTO ID [id number] 305 complet ed [facility] [place] [facility] [place] [facility] COVID-19 (PFIZER), MRNA, LNP-S, PF, ARGENIS-SUCROSE, 30 MCG/0.3 ML (AGES 12+ YEARS) 1 2022 JOSSIE SAUER LEFT DELTO ID [id number] 309 complet ed [facility] [place], [place] [facility] INFLUENZA, HIGH-DOSE, QUADRIVALENT 2022 JOSSIE SAUER RIGHT DELTO ID [id number] A 197 complet ed [facility] [place], [place] [facility] COVID-19 (PFIZER), MRNA, LNP-S, BIVALENT BOOSTER, PF, 30 MCG/0.3 ML DOSE 1 2021 300 complet ed PFR; [id number]; 3 [place] [facility] INFLUENZA, INJECTABLE, QUADRIVALENT, PRESERVATIVE FREE 2021 150 complet ed [place] [facility] PNEUMOCOCCAL CONJUGATE PCV20, POLYSACCHARID E [id number] CONJUGATE, ADJUVANT, PF 2021 216 complet ed [place] [facility] COVID-[address]), MRNA, LNP-S, PF, 30 MCG/0.3 ML DOSE, ARGENIS-SUCROSE (AGES 12+ YEARS) 4 2021 217 complet ed PFR; [id number]; 2 [place] [facility] COVID-19 (PFIZER), MRNA, LNP-S, PF, 30 MCG/0.3 ML DOSE 3 2020 208 complet ed PFR; [id number]; 1 [place] [facility], INJECTABLE, QUADRIVALENT, PRESERVATIVE FREE 2020 150 complet ed [place] [facility] ([facility]), MRNA, LNP-S, PF, 30 MCG/0.3 ML DOSE 2 2020 208 complet ed PFR; [id number]; 1 [place] [facility] COVID-19 (PFIZER), MRNA, LNP-S, PF, 30 MCG/0.3 ML DOSE 1 2020 208 complet ed PFR; [id number]; 1 [place] [facility] INFLUENZA, INJECTABLE, QUADRIVALENT, PRESERVATIVE FREE 2019 150 complet ed [place] [facility], INJECTABLE, QUADRIVALENT, PRESERVATIVE FREE 2018 150 complet ed [place] [facility] HEP A, ADULT 2018 52 complet ed [place] [facility] RECOMBINANT 2 2018 187 complet ed [place] [facility] RECOM[facility] 1 2018 187 complet ed [place] [facility] HEP A, ADULT 2018 52 complet ed [place] [facility] PNEUMOCOCCAL POLYSACCHARID E [id number] 2017 33 complet ed [place] [facility] [place] TDAP 2017 115 complet ed [place] [facility] INFLUENZA, SEASONAL, INJECTABLE 2017 141 complet ed [place] [facility] INFLUENZA A & B (HISTORICAL) 2016 88 complet ed [place] [facility] INFLUENZA A & B (HISTORICAL) 2015 88 complet ed [place] [facility] BCG,INTRAVESI BAN (HISTORICAL) 2015 SHAWNA HUYNH complet ed [place] [facility] [id number] (HISTORICAL) 2014 133 complet ed [place] [facility] INFLUENZA A & B (HISTORICAL) 2014 88 complet ed [place] [facility] FLU,3 YRS (HISTORICAL) 2013 88 complet ed [place] [facility] INFLUENZA A & B (HISTORICAL) 2012 88 complet ed locally [place] [facility] FLU,3 YRS (HISTORICAL) 2011 88 complet ed [place] [facility] FLU,3 YRS (HISTORICAL) 2010 88 complet ed [place] [facility] FLU,3 YRS (HISTORICAL) 2009 88 complet ed [place] [facility] PNEUMOCOCCAL, UNSPECIFIED FORMULATION 2009 109 complet ed locally [place] [facility] Results Combined list of recent chemistry, hematology and other laboratory results from Department of Defense and Veterans Affairs, ranging from 15 months to all on record, depending upon the facility. Order Name Results Value Reference Range Date Interpretation Specimen Comments Source ANTI-CCP (SRL) CYCLIC CITRULLINAT ED PEPTIDE AB [UNITS/VOLU ME] IN SERUM BY IMMUNOASSAY <0.5 0.5 - 2.9 01/09 Specimen Type: SERUM No comment entered. Ordering Provider: SAL LEVIN Report Released Date/Time: Jan 09, 2025 10:07 AM Reporting Lab: [facility] [address] [address] Performing Lab: [facility] [address] [address] [facility] ANTI-NUCL EAR Ab NUCLEAR AB [TITER] IN SERUM BY HEP2 SUBSTRATE <1:80 <1:80 - 180 01/09 Specimen Type: SERUM No comment entered. Ordering Provider: SAL LEVIN Report Released Date/Time: Jan 09, 2025 10:07 AM Reporting Lab: [place] [id number] Performing Lab: [place] [phone] [facility] RHEUMATOI D FACTOR RHEUMATOID FACTOR [UNITS/VOLU ME] IN SERUM OR PLASMA <8 NEGATI VE[IU] /mL <8 NEGATIVE - 8 01/09 Specimen Type: SERUM No comment entered. Ordering Provider: SAL LEVIN Report Released Date/Time: Jan 09, 2025 10:07 AM Reporting Lab: [address] [address] Performing Lab: [place] [phone] [facility] LIPID PROFILE CHOLESTEROL [MASS/VOLUM E] IN SERUM OR PLASMA 115 mg/dL 0 - 199 01/09 Specimen Type: PLASMA Comment: Estimated Glomerular Filtration Rate (eGFR) calculated using the 2020 Chronic Kidney Disease-Epi demiology (CKD-EPI) Collaborati on creatinine equation; units of measure are mL/min/1.73 m2. Results are only valid for adults (>=18 years) whose serum creatinine is in a steady state. eGFR calculation s are not valid for patients with acute kidney injury and for patients on dialysis. Creatinine- based estimates of kidney function may also be inaccurate in patients with reduced creatinine generation due to decreased muscle mass (e.g., malnutritio n, severe hypoalbumin emia, sarcopenia, chronic neuromuscul ar disease, amputations , severe heart failure or liver disease) and in patients with increased creatinine generation due to increased muscle mass (e.g., muscle builders, anabolic steroids) or increased dietary intake. As drug clearance is proportiona l to total GFR and not GFR indexed to body surface area (BSA), in individuals with a BSA substantial ly different than 1.73 m2, drug dosing should be based on the reported eGFR value de-indexed from BSA by multiplying by the individual' s BSA and dividing by 1.73. CKD is diagnosed based on abnormaliti es of kidney structure or function, present for >3 months, with implication s for health and disease. CKD is classified and staged based on cause, eGFR and albuminuria (quantified as urine albumin to creatinine ratio). An eGFR >60 mL/min/1.73 m2 in the absence of increased urine albumin excretion or structural abnormaliti es does not represent CKD. eGFR CKD Interpretat ion (mL/min/1.7 3 m2) stage >=90 G1 Normal 60-89 G2 Mild decrease 45-59 G3A Mild to moderate decrease 30-44 G3B Moderate to severe decrease 15-29 G4 Severe decrease <15 G5 Kidney failure Ordering Provider: SAL LEVIN Report Released Date/Time: Jan 09, 2025 10:07 AM Reporting Lab: [facility] [address] [address] Performing Lab: [facility] [address] [address] [facility] LIPID PROFILE TRIGLYCERID E [MASS/VOLUM E] IN SERUM OR PLASMA 261 mg/dL 0 - 149 01/09 H Specimen Type: PLASMA Comment: Estimated Glomerular Filtration Rate (eGFR) calculated using the 2020 Chronic Kidney Disease-Epi demiology (CKD-EPI) Collaborati on creatinine equation; units of measure are mL/min/1.73 m2. Results are only valid for adults (>=18 years) whose serum creatinine is in a steady state. eGFR calculation s are not valid for patients with acute kidney injury and for patients on dialysis. Creatinine- based estimates of kidney function may also be inaccurate in patients with reduced creatinine generation due to decreased muscle mass (e.g., malnutritio n, severe hypoalbumin emia, sarcopenia, chronic neuromuscul ar disease, amputations , severe heart failure or liver disease) and in patients with increased creatinine generation due to increased muscle mass (e.g., muscle builders, anabolic steroids) or increased dietary intake. As drug clearance is proportiona l to total GFR and not GFR indexed to body surface area (BSA), in individuals with a BSA substantial ly different than 1.73 m2, drug dosing should be based on the reported eGFR value de-indexed from BSA by multiplying by the individual' s BSA and dividing by 1.73. CKD is diagnosed based on abnormaliti es of kidney structure or function, present for >3 months, with implication s for health and disease. CKD is classified and staged based on cause, eGFR and albuminuria (quantified as urine albumin to creatinine ratio). An eGFR >60 mL/min/1.73 m2 in the absence of increased urine albumin excretion or structural abnormaliti es does not represent CKD. eGFR CKD Interpretat ion (mL/min/1.7 3 m2) stage >=90 G1 Normal 60-89 G2 Mild decrease 45-59 G3A Mild to moderate decrease 30-44 G3B Moderate to severe decrease 15-29 G4 Severe decrease <15 G5 Kidney failure Ordering Provider: SAL LEVIN Report Released Date/Time: Jan 09, 2025 10:07 AM Reporting Lab: [facility] [address] [phone] Performing Lab: [facility] [address] [address] [facility] LIPID PROFILE CHOLESTEROL IN HDL [MASS/VOLUM E] IN SERUM OR PLASMA 26 mg/dL 40 - 69 01/09 L Specimen Type: PLASMA Comment: Estimated Glomerular Filtration Rate (eGFR) calculated using the 2020 Chronic Kidney Disease-Epi demiology (CKD-EPI) Collaborati on creatinine equation; units of measure are mL/min/1.73 m2. Results are only valid for adults (>=18 years) whose serum creatinine is in a steady state. eGFR calculation s are not valid for patients with acute kidney injury and for patients on dialysis. Creatinine- based estimates of kidney function may also be inaccurate in patients with reduced creatinine generation due to decreased muscle mass (e.g., malnutritio n, severe hypoalbumin emia, sarcopenia, chronic neuromuscul ar disease, amputations , severe heart failure or liver disease) and in patients with increased creatinine generation due to increased muscle mass (e.g., muscle builders, anabolic steroids) or increased dietary intake. As drug clearance is proportiona l to total GFR and not GFR indexed to body surface area (BSA), in individuals with a BSA substantial ly different than 1.73 m2, drug dosing should be based on the reported eGFR value de-indexed from BSA by multiplying by the individual' s BSA and dividing by 1.73. CKD is diagnosed based on abnormaliti es of kidney structure or function, present for >3 months, with implication s for health and disease. CKD is classified and staged based on cause, eGFR and albuminuria (quantified as urine albumin to creatinine ratio). An eGFR >60 mL/min/1.73 m2 in the absence of increased urine albumin excretion or structural abnormaliti es does not represent CKD. eGFR CKD Interpretat ion (mL/min/1.7 3 m2) stage >=90 G1 Normal 60-89 G2 Mild decrease 45-59 G3A Mild to moderate decrease 30-44 G3B Moderate to severe decrease 15-29 G4 Severe decrease <15 G5 Kidney failure Ordering Provider: SAL LEVIN Report Released Date/Time: Jan 09, 2025 10:07 AM Reporting Lab: [facility] [address] [address] Performing Lab: [facility] [address] [address] [facility] LIPID PROFILE CHOLESTEROL IN LDL [MASS/VOLUM E] IN SERUM OR PLASMA BY DIRECT ASSAY 44 mg/dL 0 - 100 01/09 Specimen Type: PLASMA Comment: Estimated Glomerular Filtration Rate (eGFR) calculated using the 2020 Chronic Kidney Disease-Epi demiology (CKD-EPI) Collaborati on creatinine equation; units of measure are mL/min/1.73 m2. Results are only valid for adults (>=18 years) whose serum creatinine is in a steady state. eGFR calculation s are not valid for patients with acute kidney injury and for patients on dialysis. Creatinine- based estimates of kidney function may also be inaccurate in patients with reduced creatinine generation due to decreased muscle mass (e.g., malnutritio n, severe hypoalbumin emia, sarcopenia, chronic neuromuscul ar disease, amputations , severe heart failure or liver disease) and in patients with increased creatinine generation due to increased muscle mass (e.g., muscle builders, anabolic steroids) or increased dietary intake. As drug clearance is proportiona l to total GFR and not GFR indexed to body surface area (BSA), in individuals with a BSA substantial ly different than 1.73 m2, drug dosing should be based on the reported eGFR value de-indexed from BSA by multiplying by the individual' s BSA and dividing by 1.73. CKD is diagnosed based on abnormaliti es of kidney structure or function, present for >3 months, with implication s for health and disease. CKD is classified and staged based on cause, eGFR and albuminuria (quantified as urine albumin to creatinine ratio). An eGFR >60 mL/min/1.73 m2 in the absence of increased urine albumin excretion or structural abnormaliti es does not represent CKD. eGFR CKD Interpretat ion (mL/min/1.7 3 m2) stage >=90 G1 Normal 60-89 G2 Mild decrease 45-59 G3A Mild to moderate decrease 30-44 G3B Moderate to severe decrease 15-29 G4 Severe decrease <15 G5 Kidney failure Ordering Provider: SAL LEVIN Report Released Date/Time: Jan 09, 2025 10:07 AM Reporting Lab: [facility] [address] [phone] Performing Lab: [facility] [address] [address] [facility] GLYCOHEMO GLOBIN HEMOGLOBIN A1C/HEMOGLO BIN.TOTAL IN BLOOD BY HPLC 5.3 4.4 - 5.6 01/09 Specimen Type: BLOOD Comment: [facility] guidelines for A1c interpretat ion: Glycemic control targets are based on Shared Decision Making between clinicians and patients. Criteria used to establish an A1c target recommendat ion can be found at https://www .[place].gov/guerrero lityandpati entsafety/ and include the use of result accuracy and precision(C V) of the A1c tests clinicians utilize at their own sites of practice. Values obtained from A1C measurement s can vary. For typical A1C assays, a reported value of 7.0 could actually be between 6.72 and 7.28 if measured by a reference method. A reported value of 9.0 could actually be between 8.73 and 9.27. Ref: https://ngs p.org/CAPda ta.asp. The in-house I-MD D-100 analyzer has a historical CV <= 2%. Contact the laboratory for further performance characteris tics of this assay. Ordering Provider: SAL LEVIN Report Released Date/Time: Jan 09, 2025 10:07 AM Reporting Lab: [facility] [address] [address] Performing Lab: [facility] [address] [address] [facility] TSH THYROTROPIN [UNITS/VOLU ME] IN SERUM OR PLASMA 1.6243 m[IU]/ mL 0.3500 - 4.9400 01/09 Specimen Type: PLASMA Comment: Estimated Glomerular Filtration Rate (eGFR) calculated using the 2020 Chronic Kidney Disease-Epi demiology (CKD-EPI) Collaborati on creatinine equation; units of measure are mL/min/1.73 m2. Results are only valid for adults (>=18 years) whose serum creatinine is in a steady state. eGFR calculation s are not valid for patients with acute kidney injury and for patients on dialysis. Creatinine- based estimates of kidney function may also be inaccurate in patients with reduced creatinine generation due to decreased muscle mass (e.g., malnutritio n, severe hypoalbumin emia, sarcopenia, chronic neuromuscul ar disease, amputations , severe heart failure or liver disease) and in patients with increased creatinine generation due to increased muscle mass (e.g., muscle builders, anabolic steroids) or increased dietary intake. As drug clearance is proportiona l to total GFR and not GFR indexed to body surface area (BSA), in individuals with a BSA substantial ly different than 1.73 m2, drug dosing should be based on the reported eGFR value de-indexed from BSA by multiplying by the individual' s BSA and dividing by 1.73. CKD is diagnosed based on abnormaliti es of kidney structure or function, present for >3 months, with implication s for health and disease. CKD is classified and staged based on cause, eGFR and albuminuria (quantified as urine albumin to creatinine ratio). An eGFR >60 mL/min/1.73 m2 in the absence of increased urine albumin excretion or structural abnormaliti es does not represent CKD. eGFR CKD Interpretat ion (mL/min/1.7 3 m2) stage >=90 G1 Normal 60-89 G2 Mild decrease 45-59 G3A Mild to moderate decrease 30-44 G3B Moderate to severe decrease 15-29 G4 Severe decrease <15 G5 Kidney failure Ordering Provider: SAL LEVIN Report Released Date/Time: Jan 09, 2025 10:07 AM Reporting Lab: [facility] [address] [address] Performing Lab: [facility] [address] [address] [facility] CRP (for acute inflammat ion) C REACTIVE PROTEIN [MASS/VOLUM E] IN SERUM OR PLASMA 1.0 mg/L 0.0 - 5.0 01/09 Specimen Type: PLASMA Comment: Estimated Glomerular Filtration Rate (eGFR) calculated using the 2020 Chronic Kidney Disease-Epi demiology (CKD-EPI) Collaborati on creatinine equation; units of measure are mL/min/1.73 m2. Results are only valid for adults (>=18 years) whose serum creatinine is in a steady state. eGFR calculation s are not valid for patients with acute kidney injury and for patients on dialysis. Creatinine- based estimates of kidney function may also be inaccurate in patients with reduced creatinine generation due to decreased muscle mass (e.g., malnutritio n, severe hypoalbumin emia, sarcopenia, chronic neuromuscul ar disease, amputations , severe heart failure or liver disease) and in patients with increased creatinine generation due to increased muscle mass (e.g., muscle builders, anabolic steroids) or increased dietary intake. As drug clearance is proportiona l to total GFR and not GFR indexed to body surface area (BSA), in individuals with a BSA substantial ly different than 1.73 m2, drug dosing should be based on the reported eGFR value de-indexed from BSA by multiplying by the individual' s BSA and dividing by 1.73. CKD is diagnosed based on abnormaliti es of kidney structure or function, present for >3 months, with implication s for health and disease. CKD is classified and staged based on cause, eGFR and albuminuria (quantified as urine albumin to creatinine ratio). An eGFR >60 mL/min/1.73 m2 in the absence of increased urine albumin excretion or structural abnormaliti es does not represent CKD. eGFR CKD Interpretat ion (mL/min/1.7 3 m2) stage >=90 G1 Normal 60-89 G2 Mild decrease 45-59 G3A Mild to moderate decrease 30-44 G3B Moderate to severe decrease 15-29 G4 Severe decrease <15 G5 Kidney failure Ordering Provider: SAL LEVIN Report Released Date/Time: Jan 09, 2025 10:07 AM Reporting Lab: [facility] [place] [id number] Performing Lab: [facility] [address] SED RATE (ISED) ERYTHROCYTE SEDIMENTATI ON RATE BY PHOTOMETRIC METHOD 3 mm/h 0 - 20 01/09 Specimen Type: BLOOD No comment entered. Ordering Provider: SAL LEVIN Report Released Date/Time: Jan 09, 2025 10:07 AM Reporting Lab: [facility] [place] [phone] Performing Lab: [facility] [address] CBC/PLT LEUKOCYTES [#/VOLUME] IN BLOOD BY AUTOMATED COUNT 7.0 10*3/u L 5.0 - 10.0 01/09 Specimen Type: BLOOD No comment entered. Ordering Provider: SAL LEVIN Report Released Date/Time: Jan 09, 2025 10:07 AM Reporting Lab: [place] [phone] Performing Lab: [address] CBC/PLT ERYTHROCYTE S [#/VOLUME] IN BLOOD BY AUTOMATED COUNT 4.50 10*6/u L 4.6 - 6.2 01/09 L Specimen Type: BLOOD No comment entered. Ordering Provider: SAL LEVIN Report Released Date/Time: Jan 09, 2025 10:07 AM Reporting Lab: [place] [phone] Performing Lab: [place] [phone] [place] [address] CBC/PLT HEMOGLOBIN [MASS/VOLUM E] IN BLOOD 14.0 g/dL 14.0 - 18.0 01/09 Specimen Type: BLOOD No comment entered. Ordering Provider: SAL LEVIN Report Released Date/Time: Jan 09, 2025 10:07 AM Reporting Lab: [place] [phone] Performing Lab: [place] [phone] [place] [address] CBC/PLT HEMATOCRIT [VOLUME FRACTION] OF BLOOD BY AUTOMATED COUNT 41.3 42.0 - 52.0 01/09 L Specimen Type: BLOOD No comment entered. Ordering Provider: SAL LEVIN Report Released Date/Time: Jan 09, 2025 10:07 AM Reporting Lab: [place] [phone] Performing Lab: [place] [phone] [place] [address] CBC/PLT MCV [ENTITIC VOLUME] BY AUTOMATED COUNT 91.8 fL 80.0 - 94.0 01/09 Specimen Type: BLOOD No comment entered. Ordering Provider: SAL LEVIN Report Released Date/Time: Jan 09, 2025 10:07 AM Reporting Lab: [address] [address] Performing Lab: [address] [address] [facility] CBC/PLT MCH [ENTITIC MASS] BY AUTOMATED COUNT 31.1 pg 27.0 - 31.0 01/09 H Specimen Type: BLOOD No comment entered. Ordering Provider: SAL LEVIN Report Released Date/Time: Jan 09, 2025 10:07 AM Reporting Lab: [place] [phone] Performing Lab: [place] [phone] [place] [address] CBC/PLT MCHC [MASS/VOLUM E] BY AUTOMATED COUNT 33.9 g/dL 32.0 - 36.0 01/09 Specimen Type: BLOOD No comment entered. Ordering Provider: SAL LEVIN Report Released Date/Time: Jan 09, 2025 10:07 AM Reporting Lab: [place] [phone] Performing Lab: [place] [phone] [place] [address] CBC/PLT PLATELETS [#/VOLUME] IN BLOOD 240 10*3/u L 150 - 450 01/09 Specimen Type: BLOOD No comment entered. Ordering Provider: SAL LEVIN Report Released Date/Time: Jan 09, 2025 10:07 AM Reporting Lab: [place] [phone] Performing Lab: [place] [phone] [place] [address] CBC/PLT PLATELET MEAN VOLUME [ENTITIC VOLUME] IN BLOOD 9.1 fL 9.0 - 13.1 01/09 Specimen Type: BLOOD No comment entered. Ordering Provider: SAL LEVIN Report Released Date/Time: Jan 09, 2025 10:07 AM Reporting Lab: [address] [address] Performing Lab: [address] [address] [facility] CBC/PLT ERYTHROCYTE DISTRIBUTIO N WIDTH [ENTITIC VOLUME] BY AUTOMATED COUNT 12.3 11.0 - 16.0 01/09 Specimen Type: BLOOD No comment entered. Ordering Provider: SAL LEVIN Report Released Date/Time: Jan 09, 2025 10:07 AM Reporting Lab: [address] [phone] Performing Lab: [address] CBC/PLT NUCLEATED ERYTHROCYTE S/100 ERYTHROCYTE S IN BLOOD 0.0 0.0 - 0.0 01/09 Specimen Type: BLOOD No comment entered. Ordering Provider: SAL LEVIN Report Released Date/Time: Jan 09, 2025 10:07 AM Reporting Lab: [place] [phone] Performing Lab: [place] [phone] [place] [address] PANEL 5 CREATININE [MASS/VOLUM E] IN SERUM OR PLASMA 0.94 mg/dL 0.72 - 1.25 01/09 Specimen Type: PLASMA Comment: Estimated Glomerular Filtration Rate (eGFR) calculated using the 2020 Chronic Kidney Disease-Epi demiology (CKD-EPI) Collaborati on creatinine equation; units of measure are mL/min/1.73 m2. Results are only valid for adults (>=18 years) whose serum creatinine is in a steady state. eGFR calculation s are not valid for patients with acute kidney injury and for patients on dialysis. Creatinine- based estimates of kidney function may also be inaccurate in patients with reduced creatinine generation due to decreased muscle mass (e.g., malnutritio n, severe hypoalbumin emia, sarcopenia, chronic neuromuscul ar disease, amputations , severe heart failure or liver disease) and in patients with increased creatinine generation due to increased muscle mass (e.g., muscle builders, anabolic steroids) or increased dietary intake. As drug clearance is proportiona l to total GFR and not GFR indexed to body surface area (BSA), in individuals with a BSA substantial ly different than 1.73 m2, drug dosing should be based on the reported eGFR value de-indexed from BSA by multiplying by the individual' s BSA and dividing by 1.73. CKD is diagnosed based on abnormaliti es of kidney structure or function, present for >3 months, with implication s for health and disease. CKD is classified and staged based on cause, eGFR and albuminuria (quantified as urine albumin to creatinine ratio). An eGFR >60 mL/min/1.73 m2 in the absence of increased urine albumin excretion or structural abnormaliti es does not represent CKD. eGFR CKD Interpretat ion (mL/min/1.7 3 m2) stage >=90 G1 Normal 60-89 G2 Mild decrease 45-59 G3A Mild to moderate decrease 30-44 G3B Moderate to severe decrease 15-29 G4 Severe decrease <15 G5 Kidney failure Ordering Provider: SAL LEVIN Report Released Date/Time: Jan 09, 2025 10:07 AM Reporting Lab: [facility] [address] [phone] Performing Lab: [facility] [address] [phone] [facility] PANEL 5 UREA NITROGEN [MASS/VOLUM E] IN SERUM OR PLASMA 20 mg/dL 01/09 Specimen Type: PLASMA Comment: Estimated Glomerular Filtration Rate (eGFR) calculated using the 2020 Chronic Kidney Disease-Epi demiology (CKD-EPI) Collaborati on creatinine equation; units of measure are mL/min/1.73 m2. Results are only valid for adults (>=18 years) whose serum creatinine is in a steady state. eGFR calculation s are not valid for patients with acute kidney injury and for patients on dialysis. Creatinine- based estimates of kidney function may also be inaccurate in patients with reduced creatinine generation due to decreased muscle mass (e.g., malnutritio n, severe hypoalbumin emia, sarcopenia, chronic neuromuscul ar disease, amputations , severe heart failure or liver disease) and in patients with increased creatinine generation due to increased muscle mass (e.g., muscle builders, anabolic steroids) or increased dietary intake. As drug clearance is proportiona l to total GFR and not GFR indexed to body surface area (BSA), in individuals with a BSA substantial ly different than 1.73 m2, drug dosing should be based on the reported eGFR value de-indexed from BSA by multiplying by the individual' s BSA and dividing by 1.73. CKD is diagnosed based on abnormaliti es of kidney structure or function, present for >3 months, with implication s for health and disease. CKD is classified and staged based on cause, eGFR and albuminuria (quantified as urine albumin to creatinine ratio). An eGFR >60 mL/min/1.73 m2 in the absence of increased urine albumin excretion or structural abnormaliti es does not represent CKD. eGFR CKD Interpretat ion (mL/min/1.7 3 m2) stage >=90 G1 Normal 60-89 G2 Mild decrease 45-59 G3A Mild to moderate decrease 30-44 G3B Moderate to severe decrease 15-29 G4 Severe decrease <15 G5 Kidney failure Ordering Provider: SAL LEVIN Report Released Date/Time: Jan 09, 2025 10:07 AM Reporting Lab: [facility] [address] [phone] Performing Lab: [facility] [address] [address] [facility] PANEL 5 GLUCOSE [MASS/VOLUM E] IN SERUM OR PLASMA 79 mg/dL 74 - 100 01/09 Specimen Type: PLASMA Comment: Estimated Glomerular Filtration Rate (eGFR) calculated using the 2020 Chronic Kidney Disease-Epi demiology (CKD-EPI) Collaborati on creatinine equation; units of measure are mL/min/1.73 m2. Results are only valid for adults (>=18 years) whose serum creatinine is in a steady state. eGFR calculation s are not valid for patients with acute kidney injury and for patients on dialysis. Creatinine- based estimates of kidney function may also be inaccurate in patients with reduced creatinine generation due to decreased muscle mass (e.g., malnutritio n, severe hypoalbumin emia, sarcopenia, chronic neuromuscul ar disease, amputations , severe heart failure or liver disease) and in patients with increased creatinine generation due to increased muscle mass (e.g., muscle builders, anabolic steroids) or increased dietary intake. As drug clearance is proportiona l to total GFR and not GFR indexed to body surface area (BSA), in individuals with a BSA substantial ly different than 1.73 m2, drug dosing should be based on the reported eGFR value de-indexed from BSA by multiplying by the individual' s BSA and dividing by 1.73. CKD is diagnosed based on abnormaliti es of kidney structure or function, present for >3 months, with implication s for health and disease. CKD is classified and staged based on cause, eGFR and albuminuria (quantified as urine albumin to creatinine ratio). An eGFR >60 mL/min/1.73 m2 in the absence of increased urine albumin excretion or structural abnormaliti es does not represent CKD. eGFR CKD Interpretat ion (mL/min/1.7 3 m2) stage >=90 G1 Normal 60-89 G2 Mild decrease 45-59 G3A Mild to moderate decrease 30-44 G3B Moderate to severe decrease 15-29 G4 Severe decrease <15 G5 Kidney failure Ordering Provider: SAL LEVIN Report Released Date/Time: Jan 09, 2025 10:07 AM Reporting Lab: [facility] [address] [phone] Performing Lab: [facility] [address] [phone] [facility] PANEL 5 SODIUM [MOLES/VOLU ME] IN SERUM OR PLASMA 139 mmol/L 136 - 145 01/09 Specimen Type: PLASMA Comment: Estimated Glomerular Filtration Rate (eGFR) calculated using the 2020 Chronic Kidney Disease-Epi demiology (CKD-EPI) Collaborati on creatinine equation; units of measure are mL/min/1.73 m2. Results are only valid for adults (>=18 years) whose serum creatinine is in a steady state. eGFR calculation s are not valid for patients with acute kidney injury and for patients on dialysis. Creatinine- based estimates of kidney function may also be inaccurate in patients with reduced creatinine generation due to decreased muscle mass (e.g., malnutritio n, severe hypoalbumin emia, sarcopenia, chronic neuromuscul ar disease, amputations , severe heart failure or liver disease) and in patients with increased creatinine generation due to increased muscle mass (e.g., muscle builders, anabolic steroids) or increased dietary intake. As drug clearance is proportiona l to total GFR and not GFR indexed to body surface area (BSA), in individuals with a BSA substantial ly different than 1.73 m2, drug dosing should be based on the reported eGFR value de-indexed from BSA by multiplying by the individual' s BSA and dividing by 1.73. CKD is diagnosed based on abnormaliti es of kidney structure or function, present for >3 months, with implication s for health and disease. CKD is classified and staged based on cause, eGFR and albuminuria (quantified as urine albumin to creatinine ratio). An eGFR >60 mL/min/1.73 m2 in the absence of increased urine albumin excretion or structural abnormaliti es does not represent CKD. eGFR CKD Interpretat ion (mL/min/1.7 3 m2) stage >=90 G1 Normal 60-89 G2 Mild decrease 45-59 G3A Mild to moderate decrease 30-44 G3B Moderate to severe decrease 15-29 G4 Severe decrease <15 G5 Kidney failure Ordering Provider: SAL LEVIN Report Released Date/Time: Jan 09, 2025 10:07 AM Reporting Lab: [facility] [address] [phone] Performing Lab: [facility] [address] [address] [facility] PANEL 5 POTASSIUM [MOLES/VOLU ME] IN SERUM OR PLASMA 4.4 mmol/L 3.5 - 5.1 01/09 Specimen Type: PLASMA Comment: Estimated Glomerular Filtration Rate (eGFR) calculated using the 2020 Chronic Kidney Disease-Epi demiology (CKD-EPI) Collaborati on creatinine equation; units of measure are mL/min/1.73 m2. Results are only valid for adults (>=18 years) whose serum creatinine is in a steady state. eGFR calculation s are not valid for patients with acute kidney injury and for patients on dialysis. Creatinine- based estimates of kidney function may also be inaccurate in patients with reduced creatinine generation due to decreased muscle mass (e.g., malnutritio n, severe hypoalbumin emia, sarcopenia, chronic neuromuscul ar disease, amputations , severe heart failure or liver disease) and in patients with increased creatinine generation due to increased muscle mass (e.g., muscle builders, anabolic steroids) or increased dietary intake. As drug clearance is proportiona l to total GFR and not GFR indexed to body surface area (BSA), in individuals with a BSA substantial ly different than 1.73 m2, drug dosing should be based on the reported eGFR value de-indexed from BSA by multiplying by the individual' s BSA and dividing by 1.73. CKD is diagnosed based on abnormaliti es of kidney structure or function, present for >3 months, with implication s for health and disease. CKD is classified and staged based on cause, eGFR and albuminuria (quantified as urine albumin to creatinine ratio). An eGFR >60 mL/min/1.73 m2 in the absence of increased urine albumin excretion or structural abnormaliti es does not represent CKD. eGFR CKD Interpretat ion (mL/min/1.7 3 m2) stage >=90 G1 Normal 60-89 G2 Mild decrease 45-59 G3A Mild to moderate decrease 30-44 G3B Moderate to severe decrease 15-29 G4 Severe decrease <15 G5 Kidney failure Ordering Provider: SAL LEVIN Report Released Date/Time: Jan 09, 2025 10:07 AM Reporting Lab: [facility] [address] [phone] Performing Lab: [facility] [address] [phone] [facility] PANEL 5 CHLORIDE [MOLES/VOLU ME] IN SERUM OR PLASMA 107 mmol/L 98 - 107 01/09 Specimen Type: PLASMA Comment: Estimated Glomerular Filtration Rate (eGFR) calculated using the 2020 Chronic Kidney Disease-Epi demiology (CKD-EPI) Collaborati on creatinine equation; units of measure are mL/min/1.73 m2. Results are only valid for adults (>=18 years) whose serum creatinine is in a steady state. eGFR calculation s are not valid for patients with acute kidney injury and for patients on dialysis. Creatinine- based estimates of kidney function may also be inaccurate in patients with reduced creatinine generation due to decreased muscle mass (e.g., malnutritio n, severe hypoalbumin emia, sarcopenia, chronic neuromuscul ar disease, amputations , severe heart failure or liver disease) and in patients with increased creatinine generation due to increased muscle mass (e.g., muscle builders, anabolic steroids) or increased dietary intake. As drug clearance is proportiona l to total GFR and not GFR indexed to body surface area (BSA), in individuals with a BSA substantial ly different than 1.73 m2, drug dosing should be based on the reported eGFR value de-indexed from BSA by multiplying by the individual' s BSA and dividing by 1.73. CKD is diagnosed based on abnormaliti es of kidney structure or function, present for >3 months, with implication s for health and disease. CKD is classified and staged based on cause, eGFR and albuminuria (quantified as urine albumin to creatinine ratio). An eGFR >60 mL/min/1.73 m2 in the absence of increased urine albumin excretion or structural abnormaliti es does not represent CKD. eGFR CKD Interpretat ion (mL/min/1.7 3 m2) stage >=90 G1 Normal 60-89 G2 Mild decrease 45-59 G3A Mild to moderate decrease 30-44 G3B Moderate to severe decrease 15-29 G4 Severe decrease <15 G5 Kidney failure Ordering Provider: SAL LEVIN Report Released Date/Time: Jan 09, 2025 10:07 AM Reporting Lab: [facility] [address] [phone] Performing Lab: [facility] [address] [phone] [facility] PANEL 5 CARBON DIOXIDE, TOTAL [MOLES/VOLU ME] IN SERUM OR PLASMA 25 mmol/L 22 - 29 01/09 Specimen Type: PLASMA Comment: Estimated Glomerular Filtration Rate (eGFR) calculated using the 2020 Chronic Kidney Disease-Epi demiology (CKD-EPI) Collaborati on creatinine equation; units of measure are mL/min/1.73 m2. Results are only valid for adults (>=18 years) whose serum creatinine is in a steady state. eGFR calculation s are not valid for patients with acute kidney injury and for patients on dialysis. Creatinine- based estimates of kidney function may also be inaccurate in patients with reduced creatinine generation due to decreased muscle mass (e.g., malnutritio n, severe hypoalbumin emia, sarcopenia, chronic neuromuscul ar disease, amputations , severe heart failure or liver disease) and in patients with increased creatinine generation due to increased muscle mass (e.g., muscle builders, anabolic steroids) or increased dietary intake. As drug clearance is proportiona l to total GFR and not GFR indexed to body surface area (BSA), in individuals with a BSA substantial ly different than 1.73 m2, drug dosing should be based on the reported eGFR value de-indexed from BSA by multiplying by the individual' s BSA and dividing by 1.73. CKD is diagnosed based on abnormaliti es of kidney structure or function, present for >3 months, with implication s for health and disease. CKD is classified and staged based on cause, eGFR and albuminuria (quantified as urine albumin to creatinine ratio). An eGFR >60 mL/min/1.73 m2 in the absence of increased urine albumin excretion or structural abnormaliti es does not represent CKD. eGFR CKD Interpretat ion (mL/min/1.7 3 m2) stage >=90 G1 Normal 60-89 G2 Mild decrease 45-59 G3A Mild to moderate decrease 30-44 G3B Moderate to severe decrease 15-29 G4 Severe decrease <15 G5 Kidney failure Ordering Provider: SAL LEVIN Report Released Date/Time: Jan 09, 2025 10:07 AM Reporting Lab: [facility] [address] [address] Performing Lab: [facility] [address] [address] [facility] PANEL 5 CALCIUM [MASS/VOLUM E] IN SERUM OR PLASMA 9.2 mg/dL 8.4 - 10.2 01/09 Specimen Type: PLASMA Comment: Estimated Glomerular Filtration Rate (eGFR) calculated using the 2020 Chronic Kidney Disease-Epi demiology (CKD-EPI) Collaborati on creatinine equation; units of measure are mL/min/1.73 m2. Results are only valid for adults (>=18 years) whose serum creatinine is in a steady state. eGFR calculation s are not valid for patients with acute kidney injury and for patients on dialysis. Creatinine- based estimates of kidney function may also be inaccurate in patients with reduced creatinine generation due to decreased muscle mass (e.g., malnutritio n, severe hypoalbumin emia, sarcopenia, chronic neuromuscul ar disease, amputations , severe heart failure or liver disease) and in patients with increased creatinine generation due to increased muscle mass (e.g., muscle builders, anabolic steroids) or increased dietary intake. As drug clearance is proportiona l to total GFR and not GFR indexed to body surface area (BSA), in individuals with a BSA substantial ly different than 1.73 m2, drug dosing should be based on the reported eGFR value de-indexed from BSA by multiplying by the individual' s BSA and dividing by 1.73. CKD is diagnosed based on abnormaliti es of kidney structure or function, present for >3 months, with implication s for health and disease. CKD is classified and staged based on cause, eGFR and albuminuria (quantified as urine albumin to creatinine ratio). An eGFR >60 mL/min/1.73 m2 in the absence of increased urine albumin excretion or structural abnormaliti es does not represent CKD. eGFR CKD Interpretat ion (mL/min/1.7 3 m2) stage >=90 G1 Normal 60-89 G2 Mild decrease 45-59 G3A Mild to moderate decrease 30-44 G3B Moderate to severe decrease 15-29 G4 Severe decrease <15 G5 Kidney failure Ordering Provider: SAL LEVIN Report Released Date/Time: Jan 09, 2025 10:07 AM Reporting Lab: [facility] [address] [address] Performing Lab: [facility] [address] [address] [facility] PANEL 5 PROTEIN [MASS/VOLUM E] IN SERUM OR PLASMA 7.5 g/dL 6.4 - 8.3 01/09 Specimen Type: PLASMA Comment: Estimated Glomerular Filtration Rate (eGFR) calculated using the 2020 Chronic Kidney Disease-Epi demiology (CKD-EPI) Collaborati on creatinine equation; units of measure are mL/min/1.73 m2. Results are only valid for adults (>=18 years) whose serum creatinine is in a steady state. eGFR calculation s are not valid for patients with acute kidney injury and for patients on dialysis. Creatinine- based estimates of kidney function may also be inaccurate in patients with reduced creatinine generation due to decreased muscle mass (e.g., malnutritio n, severe hypoalbumin emia, sarcopenia, chronic neuromuscul ar disease, amputations , severe heart failure or liver disease) and in patients with increased creatinine generation due to increased muscle mass (e.g., muscle builders, anabolic steroids) or increased dietary intake. As drug clearance is proportiona l to total GFR and not GFR indexed to body surface area (BSA), in individuals with a BSA substantial ly different than 1.73 m2, drug dosing should be based on the reported eGFR value de-indexed from BSA by multiplying by the individual' s BSA and dividing by 1.73. CKD is diagnosed based on abnormaliti es of kidney structure or function, present for >3 months, with implication s for health and disease. CKD is classified and staged based on cause, eGFR and albuminuria (quantified as urine albumin to creatinine ratio). An eGFR >60 mL/min/1.73 m2 in the absence of increased urine albumin excretion or structural abnormaliti es does not represent CKD. eGFR CKD Interpretat ion (mL/min/1.7 3 m2) stage >=90 G1 Normal 60-89 G2 Mild decrease 45-59 G3A Mild to moderate decrease 30-44 G3B Moderate to severe decrease 15-29 G4 Severe decrease <15 G5 Kidney failure Ordering Provider: SAL LEVIN Report Released Date/Time: Jan 09, 2025 10:07 AM Reporting Lab: [facility] [address] [place] [address] Performing Lab: [facility] F[facility]CON [facility] [address] [address] [facility] PANEL 5 ALBUMIN [MASS/VOLUM E] IN SERUM OR PLASMA 4.2 g/dL 3.5 - 5.2 01/09 Specimen Type: PLASMA Comment: Estimated Glomerular Filtration Rate (eGFR) calculated using the 2020 Chronic Kidney Disease-Epi demiology (CKD-EPI) Collaborati on creatinine equation; units of measure are mL/min/1.73 m2. Results are only valid for adults (>=18 years) whose serum creatinine is in a steady state. eGFR calculation s are not valid for patients with acute kidney injury and for patients on dialysis. Creatinine- based estimates of kidney function may also be inaccurate in patients with reduced creatinine generation due to decreased muscle mass (e.g., malnutritio n, severe hypoalbumin emia, sarcopenia, chronic neuromuscul ar disease, amputations , severe heart failure or liver disease) and in patients with increased creatinine generation due to increased muscle mass (e.g., muscle builders, anabolic steroids) or increased dietary intake. As drug clearance is proportiona l to total GFR and not GFR indexed to body surface area (BSA), in individuals with a BSA substantial ly different than 1.73 m2, drug dosing should be based on the reported eGFR value de-indexed from BSA by multiplying by the individual' s BSA and dividing by 1.73. CKD is diagnosed based on abnormaliti es of kidney structure or function, present for >3 months, with implication s for health and disease. CKD is classified and staged based on cause, eGFR and albuminuria (quantified as urine albumin to creatinine ratio). An eGFR >60 mL/min/1.73 m2 in the absence of increased urine albumin excretion or structural abnormaliti es does not represent CKD. eGFR CKD Interpretat ion (mL/min/1.7 3 m2) stage >=90 G1 Normal 60-89 G2 Mild decrease 45-59 G3A Mild to moderate decrease 30-44 G3B Moderate to severe decrease 15-29 G4 Severe decrease <15 G5 Kidney failure Ordering Provider: SAL LEVIN Report Released Date/Time: Jan 09, 2025 10:07 AM Reporting Lab: [facility] [address] [address] Performing Lab: [facility] [address] [address] [facility] PANEL 5 BILIRUBIN.T OTAL [MASS/VOLUM E] IN SERUM OR PLASMA 0.7 mg/dL 0.2 - 1.2 01/09 Specimen Type: PLASMA Comment: Estimated Glomerular Filtration Rate (eGFR) calculated using the 2020 Chronic Kidney Disease-Epi demiology (CKD-EPI) Collaborati on creatinine equation; units of measure are mL/min/1.73 m2. Results are only valid for adults (>=18 years) whose serum creatinine is in a steady state. eGFR calculation s are not valid for patients with acute kidney injury and for patients on dialysis. Creatinine- based estimates of kidney function may also be inaccurate in patients with reduced creatinine generation due to decreased muscle mass (e.g., malnutritio n, severe hypoalbumin emia, sarcopenia, chronic neuromuscul ar disease, amputations , severe heart failure or liver disease) and in patients with increased creatinine generation due to increased muscle mass (e.g., muscle builders, anabolic steroids) or increased dietary intake. As drug clearance is proportiona l to total GFR and not GFR indexed to body surface area (BSA), in individuals with a BSA substantial ly different than 1.73 m2, drug dosing should be based on the reported eGFR value de-indexed from BSA by multiplying by the individual' s BSA and dividing by 1.73. CKD is diagnosed based on abnormaliti es of kidney structure or function, present for >3 months, with implication s for health and disease. CKD is classified and staged based on cause, eGFR and albuminuria (quantified as urine albumin to creatinine ratio). An eGFR >60 mL/min/1.73 m2 in the absence of increased urine albumin excretion or structural abnormaliti es does not represent CKD. eGFR CKD Interpretat ion (mL/min/1.7 3 m2) stage >=90 G1 Normal 60-89 G2 Mild decrease 45-59 G3A Mild to moderate decrease 30-44 G3B Moderate to severe decrease 15-29 G4 Severe decrease <15 G5 Kidney failure Ordering Provider: SAL LEVIN Report Released Date/Time: Jan 09, 2025 10:07 AM Reporting Lab: [address] [address] Performing Lab: [address] [address] [facility] PANEL 5 ASPARTATE AMINOTRANSF ERASE [ENZYMATIC ACTIVITY/VO LUME] IN SERUM OR PLASMA 21 U/L 5 - 34 01/09 Specimen Type: PLASMA Comment: Estimated Glomerular Filtration Rate (eGFR) calculated using the 2020 Chronic Kidney Disease-Epi demiology (CKD-EPI) Collaborati on creatinine equation; units of measure are mL/min/1.73 m2. Results are only valid for adults (>=18 years) whose serum creatinine is in a steady state. eGFR calculation s are not valid for patients with acute kidney injury and for patients on dialysis. Creatinine- based estimates of kidney function may also be inaccurate in patients with reduced creatinine generation due to decreased muscle mass (e.g., malnutritio n, severe hypoalbumin emia, sarcopenia, chronic neuromuscul ar disease, amputations , severe heart failure or liver disease) and in patients with increased creatinine generation due to increased muscle mass (e.g., muscle builders, anabolic steroids) or increased dietary intake. As drug clearance is proportiona l to total GFR and not GFR indexed to body surface area (BSA), in individuals with a BSA substantial ly different than 1.73 m2, drug dosing should be based on the reported eGFR value de-indexed from BSA by multiplying by the individual' s BSA and dividing by 1.73. CKD is diagnosed based on abnormaliti es of kidney structure or function, present for >3 months, with implication s for health and disease. CKD is classified and staged based on cause, eGFR and albuminuria (quantified as urine albumin to creatinine ratio). An eGFR >60 mL/min/1.73 m2 in the absence of increased urine albumin excretion or structural abnormaliti es does not represent CKD. eGFR CKD Interpretat ion (mL/min/1.7 3 m2) stage >=90 G1 Normal 60-89 G2 Mild decrease 45-59 G3A Mild to moderate decrease 30-44 G3B Moderate to severe decrease 15-29 G4 Severe decrease <15 G5 Kidney failure Ordering Provider: SAL LEVIN Report Released Date/Time: Jan 09, 2025 10:07 AM Reporting Lab: [facility] [place] [id number] [place] [address] Performing Lab: [facility] [address] [address] [facility] PANEL 5 ALANINE AMINOTRANSF ERASE [ENZYMATIC ACTIVITY/VO LUME] IN SERUM OR PLASMA 21 U/L 0 - 55 01/09 Specimen Type: PLASMA Comment: Estimated Glomerular Filtration Rate (eGFR) calculated using the 2020 Chronic Kidney Disease-Epi demiology (CKD-EPI) Collaborati on creatinine equation; units of measure are mL/min/1.73 m2. Results are only valid for adults (>=18 years) whose serum creatinine is in a steady state. eGFR calculation s are not valid for patients with acute kidney injury and for patients on dialysis. Creatinine- based estimates of kidney function may also be inaccurate in patients with reduced creatinine generation due to decreased muscle mass (e.g., malnutritio n, severe hypoalbumin emia, sarcopenia, chronic neuromuscul ar disease, amputations , severe heart failure or liver disease) and in patients with increased creatinine generation due to increased muscle mass (e.g., muscle builders, anabolic steroids) or increased dietary intake. As drug clearance is proportiona l to total GFR and not GFR indexed to body surface area (BSA), in individuals with a BSA substantial ly different than 1.73 m2, drug dosing should be based on the reported eGFR value de-indexed from BSA by multiplying by the individual' s BSA and dividing by 1.73. CKD is diagnosed based on abnormaliti es of kidney structure or function, present for >3 months, with implication s for health and disease. CKD is classified and staged based on cause, eGFR and albuminuria (quantified as urine albumin to creatinine ratio). An eGFR >60 mL/min/1.73 m2 in the absence of increased urine albumin excretion or structural abnormaliti es does not represent CKD. eGFR CKD Interpretat ion (mL/min/1.7 3 m2) stage >=90 G1 Normal 60-89 G2 Mild decrease 45-59 G3A Mild to moderate decrease 30-44 G3B Moderate to severe decrease 15-29 G4 Severe decrease <15 G5 Kidney failure Ordering Provider: SAL LEVIN Report Released Date/Time: Jan 09, 2025 10:07 AM Reporting Lab: [facility] [address] [address] Performing Lab: [facility] [address] [address] [facility] PANEL 5 ANION GAP 3 IN SERUM OR PLASMA 7 meq/L 3 - 19 01/09 Specimen Type: PLASMA Comment: Estimated Glomerular Filtration Rate (eGFR) calculated using the 2020 Chronic Kidney Disease-Epi demiology (CKD-EPI) Collaborati on creatinine equation; units of measure are mL/min/1.73 m2. Results are only valid for adults (>=18 years) whose serum creatinine is in a steady state. eGFR calculation s are not valid for patients with acute kidney injury and for patients on dialysis. Creatinine- based estimates of kidney function may also be inaccurate in patients with reduced creatinine generation due to decreased muscle mass (e.g., malnutritio n, severe hypoalbumin emia, sarcopenia, chronic neuromuscul ar disease, amputations , severe heart failure or liver disease) and in patients with increased creatinine generation due to increased muscle mass (e.g., muscle builders, anabolic steroids) or increased dietary intake. As drug clearance is proportiona l to total GFR and not GFR indexed to body surface area (BSA), in individuals with a BSA substantial ly different than 1.73 m2, drug dosing should be based on the reported eGFR value de-indexed from BSA by multiplying by the individual' s BSA and dividing by 1.73. CKD is diagnosed based on abnormaliti es of kidney structure or function, present for >3 months, with implication s for health and disease. CKD is classified and staged based on cause, eGFR and albuminuria (quantified as urine albumin to creatinine ratio). An eGFR >60 mL/min/1.73 m2 in the absence of increased urine albumin excretion or structural abnormaliti es does not represent CKD. eGFR CKD Interpretat ion (mL/min/1.7 3 m2) stage >=90 G1 Normal 60-89 G2 Mild decrease 45-59 G3A Mild to moderate decrease 30-44 G3B Moderate to severe decrease 15-29 G4 Severe decrease <15 G5 Kidney failure Ordering Provider: SAL LEVIN Report Released Date/Time: Jan 09, 2025 10:07 AM Reporting Lab: [facility] [address] [address] Performing Lab: [facility] [address] [address] [facility] PANEL 5 ALKALINE PHOSPHATASE [ENZYMATIC ACTIVITY/VO LUME] IN SERUM OR PLASMA 79 U/L 40 - 150 01/09 Specimen Type: PLASMA Comment: Estimated Glomerular Filtration Rate (eGFR) calculated using the 2020 Chronic Kidney Disease-Epi demiology (CKD-EPI) Collaborati on creatinine equation; units of measure are mL/min/1.73 m2. Results are only valid for adults (>=18 years) whose serum creatinine is in a steady state. eGFR calculation s are not valid for patients with acute kidney injury and for patients on dialysis. Creatinine- based estimates of kidney function may also be inaccurate in patients with reduced creatinine generation due to decreased muscle mass (e.g., malnutritio n, severe hypoalbumin emia, sarcopenia, chronic neuromuscul ar disease, amputations , severe heart failure or liver disease) and in patients with increased creatinine generation due to increased muscle mass (e.g., muscle builders, anabolic steroids) or increased dietary intake. As drug clearance is proportiona l to total GFR and not GFR indexed to body surface area (BSA), in individuals with a BSA substantial ly different than 1.73 m2, drug dosing should be based on the reported eGFR value de-indexed from BSA by multiplying by the individual' s BSA and dividing by 1.73. CKD is diagnosed based on abnormaliti es of kidney structure or function, present for >3 months, with implication s for health and disease. CKD is classified and staged based on cause, eGFR and albuminuria (quantified as urine albumin to creatinine ratio). An eGFR >60 mL/min/1.73 m2 in the absence of increased urine albumin excretion or structural abnormaliti es does not represent CKD. eGFR CKD Interpretat ion (mL/min/1.7 3 m2) stage >=90 G1 Normal 60-89 G2 Mild decrease 45-59 G3A Mild to moderate decrease 30-44 G3B Moderate to severe decrease 15-29 G4 Severe decrease <15 G5 Kidney failure Ordering Provider: SAL LEVIN Report Released Date/Time: Jan 09, 2025 10:07 AM Reporting Lab: [facility]OC[facility] [address] [address] Performing Lab: [facility] [address] [address] [facility] 5 GLOMERULAR FILTRATION RATE/1.73 SQ M.PREDICTED [VOLUME RATE/AREA] IN SERUM, PLASMA OR BLOOD BY CREATININE- BASED FORMULA (CKD-EPI 2020) 83 01/09 Specimen Type: PLASMA Comment: Estimated Glomerular Filtration Rate (eGFR) calculated using the 2020 Chronic Kidney Disease-Epi demiology (CKD-EPI) Collaborati on creatinine equation; units of measure are mL/min/1.73 m2. Results are only valid for adults (>=18 years) whose serum creatinine is in a steady state. eGFR calculation s are not valid for patients with acute kidney injury and for patients on dialysis. Creatinine- based estimates of kidney function may also be inaccurate in patients with reduced creatinine generation due to decreased muscle mass (e.g., malnutritio n, severe hypoalbumin emia, sarcopenia, chronic neuromuscul ar disease, amputations , severe heart failure or liver disease) and in patients with increased creatinine generation due to increased muscle mass (e.g., muscle builders, anabolic steroids) or increased dietary intake. As drug clearance is proportiona l to total GFR and not GFR indexed to body surface area (BSA), in individuals with a BSA substantial ly different than 1.73 m2, drug dosing should be based on the reported eGFR value de-indexed from BSA by multiplying by the individual' s BSA and dividing by 1.73. CKD is diagnosed based on abnormaliti es of kidney structure or function, present for >3 months, with implication s for health and disease. CKD is classified and staged based on cause, eGFR and albuminuria (quantified as urine albumin to creatinine ratio). An eGFR >60 mL/min/1.73 m2 in the absence of increased urine albumin excretion or structural abnormaliti es does not represent CKD. eGFR CKD Interpretat ion (mL/min/1.7 3 m2) stage >=90 G1 Normal 60-89 G2 Mild decrease 45-59 G3A Mild to moderate decrease 30-44 G3B Moderate to severe decrease 15-29 G4 Severe decrease <15 G5 Kidney failure Ordering Provider: SAL LEVIN Report Released Date/Time: Jan 09, 2025 10:07 AM Reporting Lab: [facility] [address] [address] Performing Lab: [facility] [address] [address] [facility] Vital Signs Combined list of inpatient and outpatient Vital Signs from Department of Defense and Veterans Affairs, ranging from 12 months to all on record, depending upon the facility. Vital Sign Value Date Comments Source SYSTOLIC BLOOD PRESSURE 133 01/09/2025 09:34:33 [facility] DIASTOLIC BLOOD PRESSURE 73 01/09/2025 09:34:33 [facility] PULSE OXIMETRY 97 01/09/2025 09:34:33 L [facility] WEIGHT 189 01/09/2025 09:34:33 [place] [facility] BMI 27 kg/m2 01/09/2025 09:34:33 [place] [facility] PAIN 0 01/09/2025 09:34:33 [place] [facility] HEIGHT 70 01/09/2025 09:34:33 [place] [facility] TEMPERATURE 97.7 01/09/2025 09:34:33 TORI NGTON [facility] PULSE 71 01/09/2025 09:34:33 [place] [facility] RESPIRATION 16 01/09/2025 09:34:33 TORI NGTON [facility] SYSTOLIC BLOOD PRESSURE 132 12/19/2024 08:49:00 [place] [facility] DIASTOLIC BLOOD PRESSURE 76 12/19/2024 08[facility]49[facility].0 12/19/2024 08:49:00 [place] [facility] BMI 25 kg/m2 12/19/2024 08:49:00 [place] [facility] PAIN 0 12/19/2024 08:49:00 [place] [facility] TEMPERATURE 97.0 12/19/2024 08:49:00 T[facility]I NGTON [facility] PULSE 69 12/19/2024 08:49:00 [place] [facility] SYSTOLIC BLOOD PRESSURE 135 02/21/2024 09:39:00 [place] [facility] DIASTOLIC BLOOD PRESSURE 73 02/21/2024 09:39:00 [place] [facility] WEIGHT 187.0 02/21/2024 09:39:00 [place] [facility] BMI 27 kg/m2 02/21/2024 09:39:00 [place] [facility] PAIN 0 02/21/2024 09:39:00 [place] [facility] HEIGHT 70.0 02/21/2024 09:39:00 [place] [facility] TEMPERATURE 97.8 02/21/2024 09:39:00 [facility] PULSE 77 02/21/2024 09:39:00 JUAN A FONTAINE [facility] SYSTOLIC BLOOD PRESSURE 116 02/07/2024 14:13[facility] 02/07/[facility]24 14:13[facility] 96 02/07/2024 14:13:27 L DL [facility] WEIGHT 181 02/07/2024 14:13:27 JUAN A [facility]ONTAINE [facility] BMI 26 kg/m2 02/07/2024 14:13:27 JUAN A [facility] PAIN 0 02/07/2024 14:13:27 JUAN A FONTAINE [facility] HEIGHT 70 02/07/2024 14:13:27 JUAN A FONTAINE [facility] TEMPERATURE 98.3 02/07/2024 14:13:27 TORI GARCIA [facility] PULSE 90 02/07/2024 14:13:27 JUAN A JAIMIE [facility] RESPIRATION 18 02/07/2024 14:13:27 TORI GARCIA [facility] Encounters Combined list of: 1) Encounters from Department of [facility] Affairs facilities going backup to the last 18 months, not all [place] inpatient encounters are included; 2) Encounters from the Department of Defense facilities going backup to 280 months. Location Location Details Encounter Type Encounter Number Reason For Visit Attending Provider ADM Date DC Date Status Disposition Source [facility] Outpatient Encounter [id number] 05 08/21 [place] HC PRO PHONE CALL 5-10 MIN [id number] Diagnos is: ICD-10- CM Z71.89 Other specifi ed genetic counselor VIRGILIO Hendrix 08/22 [place] [facility] MGMT SBSQ ENC [id number] Diagnos is: ICD-10- CM E11.9 Type 2 diabete s mellitu s without complic ations ASHUTOSH THEODORE 09/07 [place] [facility] OFFICE O/P EST LOW 20-29 MIN [id number] Diagnos is: ICD-10- CM B35.1 Karthikeyanea serg Dorie SANTAMARIA [facility] 09/07 [place] [facility] HEARING AID REPAIR/MOD IFYING 55805-4.59 [id number] Diagnos is: ICD-10- CM Z46.1 Encount er for fitting and adjustm ent of hearing aid POWERSSHAHID TAYLER S 09/07 [place] DIAB SHOE FOR DENSITY INSERT 05998-6.59 [id number] Diagnos is: ICD-10- CM E11.9 Type 2 diabete s mellitu s without complic ations CHICO,PAMEL A S 09/21 [place] [facility] OFFICE O/P EST MOD 30-39 MIN 06089-7.59 [id number] 42 Diagnos is: ICD-10- CM L57.0 Actinic keratos is LEXY GREENFIELD B 09/22 [place] OFF/OP CONSLTJ NEW/[place] HI 55 96107-6.59 [id number] 91 Diagnos is: ICD-10- CM Z01.810 Encount er for preproc edural cardiov ascular examina tion BURT BAUTISTA NCIS Y 10/05 [place] ELECTROCAR DIOGRAM COMPLETE 48795-8.59 [id number] 07 Diagnos is: ICD-10- CM I10 Essenti al (primar y) hyperte nsion ARI RENTERIA IG A 10/06 [place] COMPRE OPH EXAM EST PT 1/> 64739-6.59 [id number] Diagnos is: ICD-10- CM E11.9 Type 2 diabete s mellitu s without complic ations ISIDORO ALEMAN 10/30 [place] [facility] Outpatient Encounter [id number] [id number] 11/01 [place] [facility] Outpatient Encounter [id number] [id number] 11/17 [place] [facility] Outpatient Encounter [id number] [id number] Dion ALLEN 11/20 [place] [facility] EMERGENCY DEPT VISIT MOD MDM 48906-0.59 [id number] 02 Diagnos is: ICD-10- CM J01.90 Acute sinusit is, unspeci fied HURT,MAT THECleve E 11/20 [place] Outpatient Encounter 02618-7.59 [id number] Gini LEVIN A 11/21 [place] [facility] HC PRO PHONE CALL 5-10 MIN 47546-6.59 [id number] Diagnos is: ICD-10- CM Z71.89 Other specifi ed genetic counselor VIRGILIO Hendrix A 11/21 [place] [facility] Outpatient Encounter 24450-3.59 [id number] 11/24 [place] [facility] Outpatient Encounter 50522-6.59 [id number] 11/24 [place] [facility] Outpatient Encounter 57782-4.59 [id number] 11/28 [place] [facility] OFFICE O/P EST HI 40 MIN 21518-2.59 [id number] 09 Diagnos is: ICD-10- CM M25.512 Pain in left shoulde r O'REEL,MAUREEN NANCY B 11/28 [place] PT EDUCATION NOC INDIVID 30258-4.59 [id number] 25 Diagnos is: ICD-10- CM M25.512 Pain in left shoulde r VERENICE BAILEY V 11/28 [place] OFFICE O/P EST MOD 30 MIN 66166-2.59 [id number] 58 Diagnos is: ICD-10- CM Z01.818 Encount er for other preproc edural examina CARLO Chance 11/29 [place] ECHO GUIDE FOR BIOPSY 18980-0.59 [id number] 72 Diagnos is: ICD-10- CM G89.18 Other acute postpro cedural pain JOSE G BLANK 12/01 [place] Inpatient Encounter 50171-5.59 [id number] 18 Diagnos is: ICD-10- CM M25.512 Pain in left shoulde r AMARJITMELLISA GENTRY Najera 12/01 [place] Outpatient Encounter 62651-9.59 [id number] 36 12/01 [place] CONTENT ENGINEER DIRECTOR ERP INDIVIDU 47049-7.59 [id number] 79 Diagnos is: ICD-10- CM Z71.81 Spiritu al or religio us genetic counselor LIZ Lopez PH G 12/01 [place] Outpatient Encounter 92719-3.59 [id number] 92 JOSE G BLANK 12/01 [place] Outpatient Encounter 73702-7.59 [id number] CARTER JAMES 12/01 [place] SURGERY OF SHOULDER 86145-1.59 [id number] JAY PLUMMER 12/01 [place] [facility]-MARTINA CARVALHO [place] [facility] Outpatient Encounter 29394-4.59 [id number] 65 JOSE G BLANK 12/01 [place] Inpatient Encounter 98833-8.59 [id number] Admit Reason: L total shoulde r brigida LUISADRIANNE CLAUDETTE 12/01 Discharge from inpatient treatment to the [facility]. [place] [facility] Inpatient Encounter 55629-7.59 [id number] 94 12/01 [place] [facility] Inpatient Encounter 27894-3.59 [id number] 19 12/01 [place] Inpatient Encounter 34081-2.59 [id number] 07 12/01 [place] [place] [facility] Inpatient Encounter [id number] [id number] 21 12/01 [place] [facility] THERAPEUTI C EXERCISES 65496-1.59 [id number] 11 Diagnos is: ICD-10- CM R53.1 DOMITILA Amaral 12/01 [place] POSTOP FOLLOW-UP VISIT 04099-2.59 [id number] 86 Diagnos is: ICD-10- CM Z98.890 Other specifi ed postpro cedural states CLAY BOSCH 12/01 [place] Inpatient Encounter 34182-4.59 [id number] 82 12/01 [place] Inpatient Encounter [id number] [id number] 91 12/01 [place] [facility] Inpatient Encounter [id number] [id number] 18 12/02 [place] [facility] Inpatient Encounter 33341-5.59 [id number] 80 12/02 [place] [facility] PT EVAL LOW COMPLEX 20 MIN 39322-6.59 [id number] 09 Diagnos is: ICD-10- CM M25.512 Pain in left shoulde r OLGA ALBA C 12/02 [place] [facility] Inpatient Encounter 12925-2.59 [id number] 53 12/02 [place] [facility] MTMS BY PHARM ADDL 15 MIN 24506-7.59 [id number] 73 Diagnos is: ICD-10- CM Z51.81 Encount er for therape utic drug level monitor RENÉE Gonzalez SON L 12/02 [place] Inpatient Encounter 84398-5.59 [id number] 69 12/02 [place] [facility] Inpatient Encounter 10875-5.59 [id number] 23 12/02 [place] [facility] PRO PHONE CALL 5-10 MIN 29854-9.59 [id number] Diagnos is: ICD-10- CM Z71.89 Other specifi ed genetic counselor ing VIRGILIO CROUCH 12/04 [place] [facility] Outpatient Encounter [id number] [id number] PB GAMEZ [place] [facility] Outpatient Encounter [id number] [id number] [place] [facility] OFF/OP EST MAY X REQ PHY/QHP 45065-0.59 [id number] 59 Diagnos is: ICD-10- CM M25.512 Pain in left shoulde r FARIDEHMAIKEL 12/13 [place] [facility] Outpatient Encounter 98420-4.59 [id number] 46 12/18 [place] [facility] SELF-MGMT EDUC & TRA[place] 1 [place] [address]-4.59 [id number] 40 Diagnos is: ICD-10- CM M25.512 Pain in left shoulde r Mouan PERLA 12/19 [place] [facility] MANUAL THERAPY 1/> [facility] 95524-8.59 [id number] 52 Diagnos is: ICD-10- CM M25.512 Pain in left shoulde antoinette Mouna PERLA 12/26 [place] [facility] MANUAL THERAPY 1/> [facility] 59015-3.59 [id number] 08 Diagnos is: ICD-10- CM M25.512 Pain in left shoulde antoinette Mouna PERLA 01/01 [place] [facility] MANUAL THERAPY 1/> [facility] 19212-7.59 [id number] 25 Diagnos is: ICD-10- CM M25.512 Pain in left shoulde antoinette Mouna PERLA 01/09 [place] [facility] OFFICE O/P EST MOD 30 MIN 21029-0.59 [id number] 85 Diagnos is: ICD-10- CM M25.512 Pain in left shoulde r MAUREEN PHELPS B 01/17 [place] [facility] SELF-MGMT EDUC & TRA[place] 1 [place] [address]-7.59 [id number] 89 Diagnos is: ICD-10- CM Z96.612 Presenc e of left artific ial shoulde r Mouna Butcher 01/17 [place] [facility] SELF-MGMT EDUC & TRA[place] 1 [place] [address]-4.59 [id number] 03 Diagnos is: ICD-10- CM Z96.612 Presenc e of left artific ial shoulde r Mouna Butcher 01/23 [place] [facility] MANUAL THERAPY 1/> [facility] 34878-8.59 [id number] 17 Diagnos is: ICD-10- CM M25.512 Pain in left shoulde r Mouna PERLA 01/28 [place] [facility] MANUAL THERAPY 1/> [facility] 73268-7.59 [id number] 00 Diagnos is: ICD-10- CM Z96.612 Presenc e of left artific ial shoulde r Mouna Butcher 02/01 [place] [facility] MANUAL THERAPY 1/> [facility] 92435-6.59 [id number] 86 Diagnos is: ICD-10- CM M25.512 Pain in left shoulde r TRACI LORENZ R 02/06 [place] OFFICE O/P EST MOD 30 MIN 17651-0.59 [id number] Diagnos is: ICD-10- CM I10 Essenti al (primar y) hyperte nsion Gini LEVIN A 02/06 [place] [facility] PRO PHONE CALL 5-10 MIN 39957-8.59 [id number] Diagnos is: ICD-10- CM Z71.89 Other specifi ed genetic counselor VIRGILIO Hendrix Dania 02/11 [place] [facility] MANUAL THERAPY 1/> [facility] 61985-3.59 [id number] 45 Diagnos is: ICD-10- CM Z96.612 Presenc e of left artific ial shoulde r Mouna Butcher 02/12 [place] [facility] OFFICE O/P EST HI 40 MIN 81370-1.59 [id number] 98 Diagnos is: ICD-10- CM Z96.612 Presenc e of left artific ial shoulde r Mouna Butcher 02/15 [place] [facility] HC PRO PHONE CALL 5-10 MIN 48984-2.59 [id number] Diagnos is: ICD-10- CM Z71.89 Other specifi ed genetic counselor VIRGILIO Hendrix Dania 02/18 [place] [facility] HC PRO PHONE CALL 5-10 MIN 66464-2.59 [id number] Diagnos is: ICD-10- CM Z71.89 Other specifi ed genetic counselor renetta VIRGILIO CROUCH Dania 02/19 [place] [facility] POSTOP FOLLOW-UP VISIT 91641-2.59 [id number] 37 Diagnos is: ICD-10- CM Z96.612 Presenc e of left artific ial shoulde r EULALIO Rinadli 02/20 [place] THERAPEUTI C EXERCISES 65210-7.59 [id number] 10 Diagnos is: ICD-10- CM Z96.612 Presenc e of left artific ial shoulde r Mouna Butcher 02/26 [place] [facility] SELF-MGMT EDUC & TRAIN 1 [place] [address]-6.59 [id number] 12 Diagnos is: ICD-10- CM Z96.612 Presenc e of left artific ial shoulde r Mouna Butcher Camron 02/28 [place] [facility] OFFICE O/P EST SF 10 MIN 14852-5.59 [id number] Diagnos is: ICD-10- CM B35.1 Tinea unguium HASLER,PHI LLIP W 03/08 [place] [facility] THERAPEUTI C EXERCISES 74388-9.59 [id number] 37 Diagnos is: ICD-10- CM M25.512 Pain in left shoulde Mouna Loya Camron 03/14 [place] [facility] HEARING AID REPAIR/MOD IFYING 40014-4.59 [id number] 81 Diagnos is: ICD-10- CM Z46.1 Encount er for fitting and adjustm ent of hearing aid SHAHID POWERS 03/26 [place] [facility] THERAPEUTI C EXERCISES 46868-6.59 [id number] 86 Diagnos is: ICD-10- CM M25.512 Pain in left shoulde Mouna Loya Camron 04/03 [place] [facility] OFFICE O/P EST SF 10 MIN 18312-2.59 [id number] 19 Diagnos is: ICD-10- CM Z85.51 Persona l history of maligna nt neoplas m of bladder MARIA ELENA SÁNCHEZ III 04/03 [place] [facility] Outpatient Encounter [id number] [id number] 04/03 [place] [facility] HEARING AID REPAIR/MOD IFYING 52248-9.59 [id number] 83 Diagnos is: ICD-10- CM Z46.1 Encount er for fitting and adjustm ent of hearing aid SHAHID POWERS S 04/03 [place] [facility] Outpatient Encounter 70542-7.59 [id number] TEQUILA SNIDER EN 04/05 [place] [facility] OFFICE O/P EST MOD 30 MIN 23405-5.59 [id number] 92 Diagnos is: ICD-10- CM D48.5 Neoplas m of uncerta in behavio r of skin JEAN PIERRE,LEXY PATTERSON B 04/18 [place] [facility] THERAPEUTI C EXERCISES 66022-9.59 [id number] 38 Diagnos is: ICD-10- CM Z96.612 Presenc e of left artific ial shoulde r Mouna Butcher 04/22 [place] Outpatient Encounter 75547-4.59 [id number] PB GAMEZ S 04/22 [place] [facility] IMMUNIZATI ON ADMIN 52584-5.59 [id number] Diagnos is: ICD-10- CM Z23 Encount er for immuniz ation [place]on FLOYD M 04/22 [place] [facility] Outpatient Encounter [id number] [id number] 04/22 [place] [facility] THERAPEUTI C EXERCISES 87222-2.59 [id number] 41 Diagnos is: ICD-10- CM Z96.612 Presenc e of left artific ial shoulde Mouna Smith 05/06 [place] [facility] HC PRO PHONE CALL 5-10 MIN 49545-5.59 [id number] 45 Diagnos is: ICD-10- CM Z71.89 Other specifi ed genetic counselor Dion Blancas T 05/17 [place] OFFICE O/P EST LOW 20 MIN 50559-8.59 [id number] Diagnos is: ICD-10- CM B35.1 Tinea unguium AMALIA,ISIDORO LLIP W 06/21 [place] [facility] IMMUNIZATI ON ADMIN 96116-3.59 [id number] Diagnos is: ICD-10- CM Z23 Encount er for immuniz ation ADRIANNE SOFIA T 07/09 [place] [facility] COMPRE OPH EXAM EST PT 1/ 81457-0.59 [id number] Diagnos is: ICD-10- CM E11.9 Type 2 diabete s mellitu s without complic ations MATTY MEJIA L 10/24 [place] [facility] O/P EST LOW 20 MIN 22201-5.59 [id number] Diagnos is: ICD-10- CM 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, unspeci fied CAROLINAMER,AM Y S 11/29 [place] [facility] OFFICE O/P EST MOD 30 MIN 08396-6.59 [id number] 38 Diagnos is: ICD-10- CM L57.0 Actinic keratos is LEXY GREENFIELD 12/06 [place] [facility] OFFICE O/P EST LOW 20 MIN 54749-4.59 [id number] 98 Diagnos is: ICD-10- CM Z96.612 Presenc e of left artific ial shoulde r joint EULALIO WOOD A 12/19 [place] [facility] O/P EST MOD 30 MIN 89558-0.59 [id number] Diagnos is: ICD-10- CM R05.3 Chronic cough Gini LEVIN AURA A 01/09 [place] [facility] HEARING AID REPAIR/MOD IFYING 10952-2.59 [id number] 32 Diagnos is: ICD-10- CM Z46.1 Encount er for fitting and adjustm ent of hearing aid SHAHID POWERS 01/09 [place] [facility] ORTHC/PROS TC MGMT SBSQ ENC 08552-5.59 [id number] Diagnos is: ICD-10- CM E11.40 Type 2 diabete s mellitu s with diabeti c neuropa thy, unsp HELEN,CAN DACE L 01/09 [place] [facility] Outpatient Encounter 84003-3.59 [id number] 01/13 [place] [facility] HEARING AID REPAIR/MOD IFYING 07131-9.59 [id number] 94 Diagnos is: ICD-10- CM Z46.1 Encount er for fitting and adjustm ent of hearing aid SHAHID POWERS 01/23 [place] [facility] Procedures Combined list of: 1) Procedures from Department of Veterans Affairs facilities going back up to thelast 18 months, not all [place] non-surgical procedures are included; 2) All procedures from the Department of [facility] facilities. Procedure Procedure Type Code Date Perfomer Comments Estephanie che LEFT REVERSE TOTAL SHOULDER ARTHROPLASTY ANESTH SURGERY OF SHOULDER 00564 12/01/2023 KARLI LUIS [facility] Social History Combined list of available smoking, tobacco, and other social history from Department of Defense and Veterans Affairs facilities. Social History Type Response Date Comment Estephanie che Tobacco smoking status NHIS [place]-TOBACCO NEVER USED OTHER TYPE 01/09/2025 [facility] History of tobacco use NM-TOBACCO USE FORMER CIGARETTES 01/09/2025 [facility] History of tobacco use NM-TOBACCO NEVER USED 02/07/2024 [facility] History of tobacco use NM-TOBACCO FORMER USER 06/16/2022 [facility] History of tobacco use NM-TOBACCO FORMER USER 06/09/2021 [facility] of [facility]2019 [facility]2018 [facility] History of tobacco use V9 LIFETIME NON-USER OF TOBACCO 06/27/2017 [facility] History of tobacco use V9 LIFETIME NON-USER OF TOBACCO 08/08/2016 [facility] History of tobacco use V9 QUIT TOBACCO >7 YEARS AGO 09/07/2015 [facility] History of tobacco use V9 QUIT TOBACCO >7 YEARS AGO 05/31/2013 [facility] Plan of Care List of future care activities from Department of [facility] facilities. Additional future care activities may be listed in the Assessment and Plan section. Date/Time Care Activity Care Activity Detail Facili ty 01/28/2025 AMBULATORY - NONE AMBULATORY - NONE [facility]
--- OUTSIDE RECORDS SUMMARY | 2025-01-28 10:46 | XMS_ITS | Encounter Summary ---
Author Name [facility] Organization [facility] Address [address] [place] [id number] Care Team Providers Care Dumpling Machine Operator Name Role Phone NICHOLAS LEVIN [...] STEVENS EXPRE SS LINES Oct 09, 2020 [id number] CARLO MARTINEZ PATIENT [facility] [facility] POINT OF SERVICE [id number] [phone] Oct 09, 2011 [id number] [phone] CARLO MARTINEZ PATIENT [facility] [facility] POINT OF SERVICE STEVENS EXPRE SS LINES Oct 09, 2020 [id number] CARLO MARTINEZ PATIENT [facility] PRESCRIPT ION NONE Oct 09, 2011 [id number] [phone] TERRY MARTINEZ JR PATIENT [facility] PRESCRIPT ION ([id number]/10 [id number] [phone]) Oct 09, 2011 NONE [id number] [phone] TERRY MARTINEZ JR PATIENT [employer] [facility] ([id number]) PRESCRIPT ION STEVENS EXPRE SS Oct 09, 2020 [id number] [phone] CARLO MARTINEZ PATIENT [facility] POINT OF SERVICE STEVENS EXPRE SS LINES Oct 09, 2011 [id number] [phone] CARLO MARTINEZ PATIENT MEDICARE (WNR) MEDICARE (M) PART A Jan 08, 2012 PART A [id number] [phone] [id number] TERRY MARTINEZ JR PATIENT [facility] Oct 09, 2011 [id number] CARLO MARTINEZ PATIENT Selected Encounter This section includes the information on record at [place] for the Encounter. Date/Time Encounter Type Encounter Description Reason Provider Source Nov 29, 2024 03:00 PM OFFICE O/P EST LOW 20 MIN PODIATRY ICD-10-CM G60.9 Hereditary and idiopathic neuropathy, unspecified [place] [facility] Encounter Template Text not used by [place] Assessments - Encounter Diagnoses This section includes the primary and secondary diagnoses documented for the Encounter. Date/Time Primary/Secondary Diagnosis Diagnosis Name Provider Source Nov 29, 2024 03:19 PM PRIMARY Hereditary and idiopathic neuropathy, unspecified GAMEZ,MONICA [facility] Nov 29, 2024 03:19 PM SECONDARY Tinea unguium GAMEZMONICA SCHREIBER [facility] Nov 29, 2024 03:19 PM SECONDARY Xerosis cutis [facility] Plan of Treatment: Future Appointments (+ 6 months) and Future Tests (+/- 45 days) The Plan of Treatment section includes future care activities for the patient from all [facility]. This section includes future appointments and future orders which are active, pending or scheduled. Future Appointments This section includes appointments that were scheduled to occur 6 months from the date of the Encounter, up to a maximum of 20 appointments. The data comes from all [place] treatment facilities. Appointment Date/Time Appointment Type Appointme nt Facility Name Dec 06, 2024 09:30 AM AMBULATORY - MEDICINE TORI GARCIA [facility] Dec 19, 2024 09:00 AM AMBULATORY - SURGERY STE[facility]ANIEIN TADON[facility] Jan 09, 2025 10:00 AM AMBULATORY - NONE ALEXANDRA Dillard [facility] Jan 09, 2025 11:15 AM AMBULATORY - NONE [place] N[facility] Jan 09, 2025 11:30 AM AMBULATORY - REHAB MEDICIN E [facility] Jan 23, 2025 01:15 PM AMBULATORY - NONE [place] [facility] Jan 28, 2025 11:00 AM AMBULATORY - NONE [place] [facility] Jan 28, 2025 02:00 PM AMBULATORY - REHAB MEDICIN E [facility] Mar 28, 2025 10:40 AM AMBULATORY - SURGERY [place] GTON [facility] Apr 02, 2025 09:00 AM AMBULATORY - SURGERY [place] [facility] Active, Pending, and Scheduled Orders This section includes a listing of several types of active, pending, and scheduled orders, including clinic medications orders, diagnostic test orders, procedure orders and consult orders; where the start date of the order is 45 days before the date of the Encounter or 45 days after the date of theEncounter. The data comes from all [place] treatment facilities. Test Date/Time Test Type Test Details Facility Name Jan 09, 2025 12:00 AM Imaging - General Radiology Order ESOPHAGUS RAPID (MODIFIED BS) [facility] Jan 09, 2025 10:38 AM Consult Order SURGERY QUINN ND OUTPATIENT Cons Nurse Epidemiologist's Choice [facility] Jan 09, 2025 10:38 AM Consult Order OT OUTPATI ENT CDD Cons Nurse Epidemiologist's Choice [facility] Jan 09, 2025 10:38 AM Consult Order COMMUNITY [id number] BARIUM SWALLOW Cons Nurse Epidemiologist's Choice [facility] Social History: Smoking Status (Most current) and Tobacco Use (All prior to encounter date) This section includes the most current, and the historical, smoking and tobacco- related health factors from the [place] facility where the Encounter took place. Current Smoking Status This section includes the most current smoking, or tobacco-related health factor, from the [place] facility where the Encounter took place. Date/Time Current Smoking Status Comment Colby corado February 07, 2024 02:30 PM VA-TOBACCO NEVER USED [facility] Tobacco Use History This section includes a history of the smoking, or tobacco-related health factors, that were collected on or before the date of the Encounter. The data comes from the [place] facility where the Encounter took place. Date/Time Smoking Status/Tobacco Use Comment F acility Jun 16, 2022 01:00 PM VA-TOBACCO FORMER USER [facility] Jun 16, 2022 01:00 PM VA-TOBACCO QUIT 15 YRS OR MORE [facility] Jun 09, 2021 09:30 AM VA-TOBACCO FORMER USER [facility] Jun 09, 2021 09:30 AM VA-TOBACCO QUIT 15 YRS OR MORE [facility] Jul 06, 2020 08:30 AM VA-TOBACCO FORMER USER [facility] Jul 06, 2020 08:30 AM VA-TOBACCO QUIT 15 YRS OR MORE [facility] Jun 11, 2019 01:24 PM VA-TOBACCO NEVER USED [facility] Aug 01, 2018 07:43 AM VA-TOBACCO FORMER USER [facility] Aug 01, 2018 07:43 AM VA-TOBACCO QUIT 15 YRS OR MORE [facility] Jun 27, 2017 08:56 AM V9 LIFETIME NON-USER OF TOBACCO [facility] Aug 08, 2016 10:07 AM V9 LIFETIME NON-USER OF TOBACCO [facility] Sep 07, 2015 08:51 AM V9 QUIT TOBACCO >7 YEARS AGO [facility] May 31, 2013 09:51 AM V9 QUIT TOBACCO >7 YEARS AGO [facility] May 31, 2013 09:51 AM V9 TOBACCO OFFERED [facility] Radiology Reports: +/- 30 days [...] the Encounter. The data comes from all [facility] facilities. Date/Time Radiology Report Provider Source Dec 19, 2024 08:34 AM SHOULDER-LEFT 2 OR MORE VIEWS: TERRY MARTINEZ [id number] -[id number] M Exm Date: DEC 19, 2024@08:34 Req Phys: WILBERT WOOD Pat Loc: STE[facility]IE ORTHO/SHOULDER/FOLLOWUP CD Img Loc: CDD RADIOLOGY Service: [place] [address] (Case [id number] COMPLETE)SHOULDER-LEFT 2 OR MORE VIEWS (RAD Detailed) CPT:98460 Reason for Study: s/p surgery Clinical History: Report Status: Verified Date Reported: DEC 20, 2024 Date Verified: DEC 20, 2024 Senior Data Warehouse Architect E-Sig: Report: EXAM: LEFT SHOULDER RADIOGRAPHS HISTORY: Status post surgery COMPARISON: 02/21/2024 FINDINGS: Redemonstration of reverse left glenohumeral arthroplasty, 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 No evidence for acute fracture, dislocation or hardware loosening. No lytic or blastic lesion. Moderate acromioclavicular degenerative changes. Soft tissues are unremarkable. Impression: 1. Stable postoperative changes of the left shoulder. READING PHYSICIAN: Prieto Truong M.D. -[phone] 12/20/2024 23:30 EDT [facility] National Teleradiology Program [phone] (For Medical Practitioner Use Only) Attention Patients / Veterans: If you have questions or concerns about these test results, please contact your ordering provider or primary care team. Primary Diagnostic Code: NO ALERT REQUIRED Primary Interpreting Staff: OUTSIDE SERVICE RADIOLOGY, Staff Physician / RADIOLOGY,OUTSIDE SERVICE [facility] Encounter Notes: All associated encounter notes This section contains the clinical notes associated to the Encounter. Date/Time Encounter Note(s) Provider Source Nov 29, 2024 03:15 PM PODIATRY ATTENDING NOTE: LOCAL TITLE: PODIATRY ATTENDING NOTE STANDARD TITLE: PODIATRY ATTENDING NOTE DATE OF NOTE: NOV 29, 2024@15:15 ENTRY DATE: NOV 29, 2024@15:15:44 AUTHOR: GIANNA GAMEZ EXP COSIGNER: URGENCY: STATUS: COMPLETED SOAP Note SUBJECTIVE: The patient is a 79 year old MALE. Chief Complaint: Follow-up patient that is neuropathic, he is not a diabetic. requesting replacement therapeutic socks as well as shoes. with painful toenails he cannot manage his own. Past Medical History: Active problems - Computerized Problem List is the source for the followin. Exposure to potentially hazardous substance (SCT [id number]) 2. Brow ptosis 3. Chronic rhinitis 4. Mixed hyperlipidemia 5. Carcinoma of bladder 6. Transient ischemic attack 7. Gastroesophageal reflux disease 8. Benign essential hypertension 9. Type 2 diabetes mellitus without complication 10. Benign polyp of colon HP polyps resected Sep 2020 -- repeat in 10 years (2029). 11. Transient global amnesia (SNOMED CT [id number]) 12. Diabetes Mellitus without mention of Complication, type II or unspecified ty 13. Hyperlipidemia 14. Essential Hypertension 15. Transient Ischemic Attack * ALLERGIES: SULFA DRUGS Food allergies: None known VITALS: SVS - Vital Signs Selected No data available for: BLOOD PRESSURE TEMPERATURE RESPIRATION PULSE PULSE OXIMETRY WEIGHT FOOT RISK LEVEL: MEDICATION RECONCILIATION: Reviewed current medications with patient/significant other, patient/significant other reports taking ALL VA, Non VA & OTC medications as listed on CPRS medication tab outpatient section. Yes *Medication changes reviewed, patient/significant other verbalized understanding and provided information on new medication. Yes *Explained to the patient the importance of keeping providers updated on medication changes and to carrying an updated list of medication at all times in case of an emergency situation. Yes OBJECTIVE: PACT FOOT EXAM A foot risk level was completed. The following risk level was identified for this patient: === +POD RISK SCORE+ --LEVEL 2 - (MODERATE RISK) Sensory loss per monofilament and may have one additional finding below Diminished circulation Foot deformity -POD RISK SCORE- Patient currently being followed by Podiatry or other foot care provider. LEVEL 2 FOOT EDUCATION: 1. Advised patient that therapeutic footwear and orthosis are required to accommodate foot deformities, to compensate for soft tissue atrophy, and to evenly distribute plantar foot pressures. 2. Advised patient not to walk barefoot. Instructed the patient to pay close attention to the style and fit of shoes. 3. Explained the importance of daily foot checks. Explained that loss of sensation leads to callouses. Callouses break down, which result in ulcers that may lead to gangrene and amputation. 4. Stressed the importance of daily foot hygiene. Warm (not hot) bathing of the feet, complete drying and thorough inspection for changes in the condition of the skin constitute daily foot care. Demonstrated how to do a thorough foot check. 5. Emphasized the use of clean, non-restrictive socks/stockings and well fitting shoes. 6. Stressed the importance of immediate follow-up of any foot injuries or ulcers. Explained that he/she should be non-weight bearing whenever there are lesions on the foot, to prevent cellular damage. Level of Understanding: Good Patient/Caregiver having difficulty examining feet No Patient/caregiver has difficulty cleansing feet No Patient walks barefoot Never Instructed on the importance of not walking barefoot FOOT RISK LEVEL: 2 ROS: pertinent to chief complaint & relative to above medical history. PE: AAOX3,NAD Lower Extermity Dermatological Exam: NAILS: Long, Thick, Discolored, Brittle, Crumbly, Subungal debris SKIN: Dry no ulcers nor signs of bacterial infections bilat VASCULAR EVAL: 1/4 DP/PT bilat, cap refil 3 sec x 10 NEUROLOGICAL EVALUATION: insensate bilat Lower Extermity Motor Function: 5/5 all lower extremity muscle groups bilat ORTHOPEDICS EVALUATION: hammertoes bilat, + bunions bilat feet IMPRESSION: neuropathy Xerosis Onychomycosis x 10 PLAN: Discussed with patient the diagnosis and treatment plan on this clinic visit. Preventative footcare education provided. Extensive consultation / edeucation of pt on neuropathy and ramifications of poor compliance. Pt advised of risk of infection / ulceration / amputation / etc. Rx diabetic socks crew length size 11, also consult placed to prosthetics for theraputic shoes in order to acomodate significant pedal deformity in an at risk patient. Provided remedy phytoPlex lotion for twice daily use to the feet for dry skin. aseptic debridement of the nails x 10 of lengh/girth/thickness via manual & eletric instrumentation. This treament also consisted of an extensive consultation of the condition and the possible alternative to this mode of treatment. RTC: 4 mos /es/ GIANNA GAMEZ Chief, Podiatry Section Signed: 11/29/2024 15:19 GIANNA GAMEZ [facility] Nov 29, 2024 02:57 PM SURGERY NURSING NOTE: LOCAL TITLE: SURGERY CLINIC INTAKE NOTE STANDARD TITLE: SURGERY NURSING NOTE DATE OF NOTE: NOV 29, 2024@14:57 ENTRY DATE: NOV 29, 2024@14:57:29 AUTHOR: ROLY PALAFOX COSIGNER: URGENCY: STATUS: COMPLETED [...] of active outpatient prescriptions dispensed from this [place] (local) and dispensed from another [place] or [facility] facility (remote) as well as inpatient orders (local pending and active), local clinic medications, locally documented non-VA medications, and local prescriptions that have or been discontinued in the past 90 days. Non-VA Meds Last Documented On: Jun 27, 2017 NOTE The display of VA prescriptions dispensed from another [place] or [facility] facility (remote) is limited to active outpatient prescription entries matched to National Drug File at the originating site and may not include some items such as investigational drugs, compounds, etc. NOT INCLUDED IN THIS LIST: Medications self-entered by the patient into personal health records (i.e. [employer]) are NOT included in this list. Non-VA medications documented outside this [place], remote inpatient orders (regardless of status) and [...] GRAPEFRUIT JUICE WHILE ON THIS DRUG Rx# [id number] Last Released: 09/19/24 Qty/Days Supply: 45 Rx Expiration Date: 06/20/25 Refills Remainin OUTPT DICLOFENAC NA 1% TOP GEL (Status = Active) APPLY 2 GRAM STRIP TO AFFECTED AREA EVERY 6 HOURS NEEDED FOR HAND PAIN Rx# [id number] Last Released: 04/22/24 Qty/Days Supply: 10030 Rx Expiration Date: 02/20/25 Refills Remainin Indication: FOR HAND PAIN Non-VA FISH OIL CAP,ORAL TAKE 1200MG BY MOUTH EVERY DAY Patient wants to buy from Non-MS pharmacy. OUTPT LISINOPRIL 10MG TAB (Status = Active) TAKE ONE-HALF TABLET BY MOUTH DAILY FOR BLOOD PRESSURE/HEART Rx# [id number] Last Released: 10/11/24 Qty/Days Supply: Rx Expiration Date: 06/20/25 Refills Remainin OUTPT LORATADINE 10MG TAB (Status = Active) TAKE ONE TABLET BY MOUTH DAILY FOR ALLERGIES MAY CAUSE DROWSINESS Rx# [id number] Last Released: 10/11/24 Qty/Days Supply: Rx Expiration Date: 04/16/25 Refills Remainin Indication: FOR ALLERGIES SUPPLIES /vishnu/ ROLY PALAFOX Health Screwdown Operator Signed: 11/29/2024 14:57 ROLY PALAFOX [facility]
--- OUTSIDE RECORDS SUMMARY | 2025-01-28 10:46 | XMS_ITS ---
Author Name [facility] [place] [facility] [place] Address [address] [place] [address] Care Team Providers Care Construction Supervisor Name Role Phone NICHOLAS LEVIN Primary Care [...] STEVENS EXPRE SS LINES Oct 09, 2020 [id number] [phone] CARLO MARTINEZ PATIENT [facility] [facility] POINT OF SERVICE [id number] Oct 09, 2011 [id number] [phone] CARLO MARTINEZ PATIENT [employer] [facility] POINT OF SERVICE STEVENS EXPRE SS LINES Oct 09, 2020 [id number] CARLO MARTINEZ PATIENT [facility] PRESCRIPT ION NONE Oct 09, 2011 [id number] [phone] TERRY MARTINEZ JR PATIENT [facility] PRESCRIPT ION ([id number] 07/10 [id number] [phone]) Oct 09, 2011 NONE [id number] TERRY MARTINEZ JR PATIENT [facility] ([id number]) PRESCRIPT ION STEVENS EXPRE SS Oct 09, 2020 [id number] [phone] CARLO MARTINEZ PATIENT [facility] POINT OF SERVICE STEVENS EXPRE SS LINES Oct 09, 2011 [id number] [phone] CARLO MARTINEZ PATIENT MEDICARE (WNR) MEDICARE (M) PART A Jan 08, 2012 PART A [id number] [phone] TERRY MARTINEZ JR PATIENT [facility] Oct 09, 2011 [id number] CARLO MARTINEZ PATIENT Selected Encounter This section includes the information on [place] at [place] for the Encounter. Date/Time Encounter Type Encounter Description Reason Provider Source Jan 09, 2025 11:15 AM HEARING AID REPAIR/MODIFYIN G AUDIOLOGY ICD-10-CM Z46.1 Encounter for fitting and adjustment of hearing aid QUAN POWERS Norma Encounter Template Text not used by [place] Assessments - Encounter Diagnoses This section includes the primary and secondary diagnoses documented for the Encounter. Date/Time Primary/Secondary Diagnosis Diagnosis Name Provider Source Jan 09, 2025 11:44 AM PRIMARY Encounter for fitting and adjustment of hearing aid MIMI MEJIA [facility] Jan 09, 2025 11:44 AM SECONDARY Sensorineural hearing loss, bilateral MIMI MEJIA [facility] Plan of Treatment: Future Appointments (+ 6 months) and Future Tests (+/- 45 days) The Plan of Treatment section includes future care activities for the patient from all [place] treatmentfacilities. This section includes future appointments and future orders which are active, pending or scheduled. Future Appointments This section includes appointments that were scheduled to occur 6 months from the date of the Encounter, up to a maximum of 20 appointments. The data comes from all [place] treatment facilities. Appointment Date/Time Appointment Type Appointme nt Facility Name Jan 23, 2025 01:15 PM AMBULATORY - NONE [place] Jan 28, 2025 11:00 AM AM[place]ATORY - NONE [place] [facility] Jan 28, 2025 02:00 PM AMBULATORY - REHAB MEDICIN [place] [facility] Mar 28, 2025 10:40 AM AMBULATORY - SURGERY [place] [facility] Apr 02, 2025 09:00 AM AMBULATORY - SURGERY [place] [facility] Active, Pending, and Scheduled Orders This section includes a listing of several types of active, pending, and scheduled orders, including clinic medications orders, diagnostic test orders, procedure orders and consult orders; where the start date of the order is 45 days before the date of the Encounter or 45 days after the date of theEncounter. The data comes from all [place] treatment facilities. Test Date/Time Test Type Test Details Facility Name Jan 09, 2025 12:00 AM Imaging - General Radiology Order ESOPHAGUS RAPID (MODIFIED BS) [facility] Jan 09, 2025 10:38 AM Consult Order SURGERY QUINN ND OUTPATIENT Cons Commercial Green Retro[employer] Architect's Choice [facility] Jan 09, 2025 10:38 AM Consult Order OT OUTPATI ENT CDD Cons [employer] Architect's Choice [facility] Jan 09, 2025 10:38 AM Consult Order COMMUNITY [id number]-[id number]-LBKUBGEY BARIUM SWALLOW [facility] Commercial Green Retrofit Architect's Choice [facility] Lab Results: +/- 30 days of the encounter This section includes the Chemistry and Hematology Lab Results on record with [place] for the patient. Radiology Reports and Pathology Reports are provided separately, in subsequent sections. Lab Results This section contains the Chemistry/Hematology Results that were resulted 30 days before or 30 daysafter the date of the Encounter. Date/Time Source Result Type Result - Unit Interpretation Reference Range Specimen Type Comment Jan 09, 2025 10:15 AM [facility] ANTI-CCP (SRL) SERUM Specimen Type: SERUM No comment entered. Ordering Provider: NICHOLAS LEVIN Report Released Date/Time: Jan 09, 2025 10:07 AM Reporting Lab: [address] [address] Performing Lab: [address] [address] ANTI-CCP (SRL) <0.5 0.5-2.9 Jan 09, 2025 10:15 AM [facility] ANTI-NUCLEAR Ab SERUM Specime n Type: SERUM No comment entered. Ordering Provider: NICHOLAS LEVIN Report Released Date/Time: Jan 09, 2025 10:07 AM Reporting Lab: [address] [address] Performing Lab: [address] [address] ANTI-NUCLEAR Ab <1:80 <1:80 Jan 09, 2025 10:15 AM [facility] RHEUMATOID FACTOR SERUM Speci men Type: SERUM No comment entered. Ordering Provider: NICHOLAS LEVIN Report Released Date/Time: Jan 09, 2025 10:07 AM Reporting Lab: [address] [address] Performing Lab: [address] [address] RHEUMATOID FACTOR <8 NEGATIVE [IU]/mL <8 NEGATIVE Jan 09, 2025 10:15 AM [facility] GLYCOHEMOGLOBIN BLOOD Specimen Type: BLOOD Comment: [place] guidelines for A1c interpretation: Glycemic control targets are based on Shared Decision Making between clinicians and patients. Criteria used to establish an A1c target recommendation can be found at https://www.pr.gov/qualityandpatientsafety/ and include the use of result accuracy [...] 8.73 and 9.27. Ref: https://ngsp.org/CAPdata.asp. The in-house [employer] D-100 analyzer has a historical CV <= 2%. Contact the laboratory for further performance characteristics of this assay. Ordering Provider: NICHOLAS LEVIN Report Released Date/Time: Jan 09, 2025 10:07 AM Reporting Lab: [address] [address] Performing Lab: [address] [address] GLYCOHEMOGLOBIN 5.3 4.4-5.6 Jan 09, 2025 10:15 AM [facility] LIPID PROFILE PLASMA Specimen Type: PLASM [...] Jan 09, 2025 10:07 AM Reporting Lab: [address] [address] Performing Lab: [address] [address] CHOLESTEROL 115 mg/dL 0-199 TRIGLYCERIDE 261 mg/dL H 0-149 HDL CHOLESTEROL 26 mg/dL L 40-69 DIRECT LDL CHOL. 44 mg/dL 0-100 Jan 09, 2025 10:15 AM [facility] TSH PLASMA Specimen Type: PLASM A [...] Jan 09, 2025 10:07 AM Reporting Lab: [address] [address] Performing Lab: [address] [address] TSH 1.6243 m[IU]/mL 0.3500-4.9400 Jan 09, 2025 10:15 AM [facility] SED RATE (ISED) BLOOD Specime n Type: BLOOD No comment entered. Ordering Provider: NICHOLAS LEVIN Report Released Date/Time: Jan 09, 2025 10:07 AM Reporting Lab: [address] [address] Performing Lab: [address] [address] SED RATE (ISED) 3 mm/h 0-20 Jan 09, 2025 10:15 AM [facility] CRP (for acute inflammation) PLASMA Specimen [...] Jan 09, 2025 10:07 AM Reporting Lab: [place] [phone] Performing Lab: [place] [id number] CRP (for acute inflammation) 1.0 mg/L 0. 0-5.0 Jan 09, 2025 10:15 AM [facility] CBC/PLT BLOOD Specimen Type: BLOOD No comment entered. Ordering Provider: NICHOLAS LEVIN Report Released Date/Time: Jan 09, 2025 10:07 AM Reporting Lab: [place] [phone] Performing Lab: [place] [phone] WBC 7.0 10*3/uL 5.0-10.0 RBC 4.50 10*6/uL L 4.6-6.2 HGB 14.0 g/dL 14.0-18.0 HCT 41.3 L 42.0-52.0 MCV 91.8 fL 80.0-94.0 MCH 31.1 pg H 27.0-31.0 MCHC 33.9 g/dL 32.0-36.0 PLT 240 10*3/uL 150-450 MPV 9.1 fL 9.0-13.1 RDW 12.3 11.0-16.0 NRBC 0.0 0.0-0.0 Jan 09, 2025 10:15 AM [facility] PANEL 5 PLASMA Specimen Type: PLASM [...] Jan 09, 2025 10:07 AM Reporting Lab: [address] [address] Performing Lab: [address] [address] CREATININE 0.94 mg/dL 0.72-1.25 UREA NITROGEN 20 [...] the Encounter. The data comes from all [place] treatment facilities. Date/Time Radiology Report Provider Source Jan 09, 2025 10:27 AM CHEST TWO(2) VIEW PA&LAT: TERRY MARTINEZ JR [id number] -1945 M Exm Date: JAN 09, 2025@10:27 Req Phys: NICHOLAS LEVIN Loc: [facility] PACCausecastF 1-2 (Req'g Loc) Img Loc: [facility] RADIOLOGY Service: [place] [address] (Case [id number] COMPLETE)CHEST TWO(2) VIEW PA&LAT (RAD Detailed) CPT:88971 Reason for Study: CHRONIC COUGH Clinical History: Report Status: Verified Date Reported: JAN 09, 2025 Date Verified: JAN 09, 2025 Instructional Resource Teacher E-Sig: Report: Comparison: February 02, 2022 Findings: Two views of the chest were obtained. Lungs are free of infiltrates. Heart size is normal. No pneumothorax or pleural effusions are seen. 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 Impression: 1. No acute disease Primary Diagnostic Code: NO ALERT REQUIRED Primary Interpreting Staff: SINTIA IBARRA, Staff Physician Verified by trucksmith for SINTIA IBARRA /SINTIA RUIZ [facility] Jan 09, 2025 10:27 AM HAND-RIGHT 3 OR MORE VIEWS: TERRY MARTINEZ JR [id number] -1945 M Exm Date: JAN 09, 2025@10:27 Req Phys: NICHOLAS LEVIN Loc: [facility] PACT GOLF 1-2 (Req'g Loc) Img Loc: [facility] RADIOLOGY Service: [place] [address] (Case [id number] COMPLETE)HAND-RIGHT 3 OR MORE VIEWS (RAD Detailed) CPT:45099 Reason for Study: BILATERAL HAND PAIN Clinical History: UPDATING PLAIN FILMS FOR HAND CONSULT Report Status: Verified Date Reported: JAN 10, 2025 Date Verified: JAN 10, 2025 Instructional Resource Teacher E-Sig: Report: HAND-RIGHT 3 OR MORE VIEWS, HAND-LEFT 3 OR MORE VIEWS, 01/09/2025 10:39 AM EDT INDICATION: BILATERAL HAND PAIN COMPARISON: February 07, 2024 Impression: No acute fracture or malalignment. 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 Primary Diagnostic Code: NO ALERT REQUIRED Primary Interpreting Staff: MARC BRAND, Staff Physician Verified by trucksmith for MARC BRAND /MARC GENAO [facility] Jan 09, 2025 10:27 AM HAND-LEFT 3 OR MORE VIEWS: TERRY MARTINEZ [id number] -1945 M Exm Date: JAN 09, 2025@10:27 Req Phys: NICHOLAS LEVIN Loc: [facility] PACT GOLF 1-2 (Req'g Loc) Img Loc: [facility] RADIOLOGY Service: [place] [address] (Case [id number] COMPLETE)HAND-LEFT 3 OR MORE VIEWS (RAD Detailed) CPT:12970 Reason for Study: BILATERAL HAND PAIN Clinical History: UPDATING PLAIN FILMS FOR HAND CONSULT Report Status: Verified Date Reported: JAN 10, 2025 Date Verified: JAN 10, 2025 Instructional Resource Teacher E-Sig: Report: HAND-RIGHT 3 OR MORE VIEWS, HAND-LEFT 3 OR MORE VIEWS, 01/09/2025 10:39 AM EDT INDICATION: BILATERAL HAND PAIN COMPARISON: February 07, 2024 Impression: No acute fracture or malalignment. 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 Primary Diagnostic Code: NO ALERT REQUIRED Primary Interpreting Staff: MARC BRAND, Staff Physician Verified by trucksmith for MARC BRAND /MARC GENAO [facility] Dec 19, 2024 08:34 AM SHOULDER-LEFT 2 OR MORE VIEWS: TERRY MARTINEZ JR [id number] -1945 M Exm Date: DEC 19, 2024@08:34 Req Phys: WILBERT WOOD Loc: [facility] ORTHO/SHOULDER/FOLLOWUP CD Img Loc: [facility] RADIOLOGY Service: [place] [address] (Case [id number] COMPLETE)SHOULDER-LEFT 2 OR MORE VIEWS (RAD Detailed) CPT:19488 Reason for Study: s/p surgery Clinical History: Report Status: Verified Date Reported: DEC 20, 2024 Date Verified: DEC 20, 2024 Instructional Resource Teacher E-Sig: Report: EXAM: LEFT SHOULDER RADIOGRAPHS HISTORY: Status post surgery COMPARISON: 02/21/2024 FINDINGS: Redemonstration of reverse left glenohumeral arthroplasty, 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 No evidence for acute fracture, dislocation or hardware loosening. No lytic or blastic lesion. Moderate acromioclavicular degenerative changes. Soft tissues are unremarkable. Impression: 1. Stable postoperative changes of the left shoulder. READING PHYSICIAN: Prieto Truong M.D. -[phone] 12/20/2024 23:30 EDT [facility] National Teleradiology Program [phone] (For Medical Practitioner Use Only) Attention Patients / Veterans: If you have questions or concerns about these test results, please contact your ordering provider or primary care team. Primary Diagnostic Code: NO ALERT REQUIRED Primary Interpreting Staff: OUTSIDE SERVICE RADIOLOGY, Staff Physician / RADIOLOGY,OUTSIDE SERVICE [facility] Encounter Notes: All associated encounter notes This section contains the clinical notes associated to the Encounter. Date/Time Encounter Note(s) Provider Source Jan 09, 2025 11:41 AM AUDIOLOGY CUSTOMER SALES REPRESENTATIVE NOTE: LOCAL TITLE: AUDIOLOGY HEARING AID REPAIR STANDARD TITLE: AUDIOLOGY CUSTOMER SALES REPRESENTATIVE NOTE DATE OF NOTE: JAN 09, 2025@11:41 ENTRY DATE: JAN 09, 2025@11:41:54 AUTHOR: MIMI MEJIA EXP COSIGNER: NINA POWERS URGENCY: STATUS: COMPLETED AUDIOLOGY HEARING AID REPAIR Has ADDENDA S: The was seen in the [facility]. The 's most recent test results revealed a bilateral sensory hearing loss The has been issued the below devices 07/13/22 GN RESOUND RESOUND ONE 61 MINI KADIE-R R [id number] NA [id number] [facility] 07/13/22 GN RESOUND RESOUND ONE 61 MINI KADIE-R L [id number] 06/24/25 11/22/22 [id number] [facility] Reason for visit: right aid weak O: OTOSCOPY/ CLEAR A: Right aid chimes but no sound, changed quill layer no differencewill send for repair,When Aid comes back to clinic please call patient he will bring left aid in so Aids can be Sync with phone P: RIGHT HEARING AID Hearing aid was sent in for repair and will be mailed to the within 4-5 weeks. LEFT HEARING AID Sargent left with hearing aid in proper function. The can report to one of the Audiology Walk-In Repair Clinics: [facility], [facility] or [facility] Monday through from 8am to 12pm and 1pm to 2:30pm - with any fit/physical hearing aid issues. Sargent may call to make a 30-minute appointment in the [place] [address] rehab clinic if any sound quality issues arise. /aram MEJIA Signed: 01/09/2025 11:44 /vishnu/ NINA POWERS Staff Instrument Designer Cosigned: 01/09/2025 13:59 01/22/2025 ADDENDUM STATUS: COMPLETED Right hearing aid received in clinic. Certified in [place]. Called per note. /vishnu/ MUUKL STOVER BOUNTY TRAPPER Signed: 01/22/2025 11:51 /vishnu/ NINA POWERS Staff Instrument Designer Cosigned: 01/22/2025 13:47 MIMI MEJIA[facility]
--- NOTE | 2025-01-28 14:26 | HMH.SLMBS2 ---
Speech & Language Evaluation Speech/Lang Modified Barium Swallow Start: 01/28/25 14:15 Freq: once Status: Complete Protocol: Document 01/28/25 14:15 AGAP[place]O (Rec: 01/28/25 14:26 [facility] [id number]) BINDING FOLDER MACHINE Evaluation Information BINDING FOLDER MACHINE Evaluation Information Date of Evaluation: 01/28/25 Time of Evaluation: 11:00 Evaluation Type Initial Certification Reason for Referral dysphagia per MD order Does Patient Qualify for Service No Qualify/Failure Comment Based on clinical observations made throughout instrumental assessment and pt interview, further skilled speech therapy services are not warranted at this time d/t safe and efficient oropharyngeal swallow function with use of compensatory strategies. Pt would benefit from GI consult for globus sensation and ENT consult for continuous throat clearing. MBS Recommendations Plan Pt/Guardian verbally ack understanding Yes of dx/prognosis/goals Diet Dietary Recommendations Regular,Thin Liquids SL Swallow Guidelines Standard Aspiration Prec.,Eat at slow rate,Reflux precautions Treatment/Strategies Strategy/Precaution Recommended Sitting Upright (90 deg),Chin Tuck,Supraglottic Swallow, Small Bites and Sips,Alternate Liquids/Solids Referral/Other Recommended Referrals GI Consult,ENT Consult Comment Pt would benefit from ENT consult as he stated he continuously clears throat throughout day, even when not eating/drinking. Pt would benefit from GI consult d/t globus sensation that typically results in vomiting. BINDING FOLDER MACHINE Patient History Section BINDING FOLDER MACHINE Patient History Primary Medical History Mr. Carlin stated no significant PMHx. Does Patient have Reflux or GERD? No Does Patient Experience Coughing or Yes Choking Episodes? Coughing or Choking Comment Pt stated he would cough which leads to vomiting. Does Patient Avoid Certain Food Textures No /Consistencies? Food Textures/Consistencies Comment Pt does not avoid certain foods, however stated meats ad breads cause globus sensation . Does Patient Utilize Compensatory No Strategies During Meals? Has Patient Experienced Significant No Weight Loss? Does Pt have Hx of Recurrent Pneumonias No or Respiratory Infections? Has Patient Noticed Change in Vocal No Quality? Mod Barium Swallow Study Patient Orientation Patient Orientation Person,Place,Time,Situation Oral Expression Ability No Impairment Ability to Follow Directions Excellent Is Patient able to Perform Volitional Yes Throat Clear? Is Patient able to Perform Volitional Yes Cough? Is Patient able to Manage Secretions Yes Independently? Mod Barium Swallow Set Up Radiologist Enrique Mayo Patient Presentation: Awake,Alert,Appropriate, Follows Commands Bolus Consistencies Trialed: Thin Liquids,Sealy Thick Liquids,Pudding,Puree, Mechanical Soft,Regular,Pill ( Barium Tablet) MBSS Observations Consistency & Strategy Trial Regular Penetration/Aspiration Scale 1 PAS Amount Neither Pharyngeal Residual 0-9% Mechanical Soft Penetration/Aspiration Scale 1 PAS Amount Neither Pharyngeal Residual 0-9% Puree Penetration/Aspiration Scale 1 PAS Amount Neither Pharyngeal Residual 0-9% Pudding Penetration/Aspiration Scale 1 PAS Amount Neither Pharyngeal Residual 0-9% Sealy Penetration/Aspiration Scale 1 PAS Amount Neither Pharyngeal Residual 0-9% Thin Penetration/Aspiration Scale 2 PAS Amount Trace Pharyngeal Residual 0-9% Mod Barium Swallow Impressions Oral Phase Summary & Impressions Oral Phase: Impression Minimal Impairment Oral Phase: Labial Closure No Impairment (WFL) Oral Phase: Bolus Formation Pooling L/R No Impairment (WFL) Oral Phase: Bolus Formation Under Tongue No Impairment (WFL) Oral Phase: Bolus Formation Scattered No Impairment (WFL) Loss Oral Phase: Mastication Rotary Chew Minimal Impairment Oral Phase: Mastication Munching Minimal Impairment Oral Phase: Mastication Lateralization Minimal Impairment Oral Phase: Lingual Movement No Impairment (WFL) Oral Phase: Residue Clearing No Impairment (WFL) Oral Phase: Summary No impairment of oral phase of swallow. Mastication and manipulation of bolus were minimally reduced d/t weakness during mechanical soft and regular food trials. Pharyngeal Phase Summary & Impressions Pharyngeal Phase: Impression Mild Impairment Pharyngeal Phase: A/P Lingual Propulsion No Impairment (WFL) Spills Pharyngeal Phase: Swallow Response Delay No Impairment (WFL) Pharyngeal Phase: Base of Tongue No Impairment (WFL) Pharyngeal Phase: Epiglottic Coverage Mild Impairment Pharyngeal Phase: Laryngeal Elevation Mild Impairment Pharyngeal Phase: Vallecular Retention Minimal Impairment Clearing Pharyngeal Phase: Pharyngeal Wall No Impairment (WFL) Residue Clearing Pharyngeal Phase: Piriform Sinus Minimal Impairment Retention Pharyngeal Phase: Summary Mild impairment of pharyngeal phase of swallow. No aspiration observed on any consistency throughout study. Penetration observed during thin liquid trials d/t minimally reduced epiglottic coverage, which was eliminated with chin tuck and effortful swallow strategies. Minimal diffuse oropharynx residue observed during nectar thick trial, which was cleared with subsequent swallow. Pill trial was WFL. Aspiration Aspiration? No Silent Aspiration? No BINDING FOLDER MACHINE MBSS Goals Education Instructions provided BINDING FOLDER MACHINE discussed clinical observations made throughout instrumental assessment, compensatory strategies/ aspiration precautions, and diet recommendations with pt and , each of which expressed understanding. Patient/Caregiver Able to Recall Able to recall/restate Information Reinforcement needed No PHYSICIAN CERTIFICATION: I certify the specified therapy services for Didier Carlin JR are required, authorized, and reviewed every 30 days.
== END 2025-01-28 23:59 | disposition home or self-care (01) ==
LOC: RAD 10:42
PROVIDERS: PCP Internal Medicine; Visit Provider Internal Medicine
DX: R13.10 Dysphagia, unspecified (principal)
CPT/HCPCS: 74230; 76000; 92611